=== PATIENT | female | born 1955 | race Caucasian/White ===

== ENCOUNTER → 2017-01-11 | Outpatient (CLI) | payer BC ==
[~2017-01-11] MED LIST: ASPEC81 PO; ATEN-173 PO; ATOR-26 PO; CLOP1TAB15 PO; LSN25 PO
--- NOTE | 2017-01-11 13:47 | MAMMOGRAPHY REPORT ---
BILATERAL DIGITAL SCREENING MAMMOGRAM TOMOSYNTHESIS WITH CAD: 01/11/2017 CLINICAL HISTORY: Routine screening. Patient has no complaints. TECHNIQUE: Breast tomosynthesis in addition to standard 2D mammography was performed. Current study was also evaluated with a Computer Aided Detection (CAD) system. COMPARISON: Comparison is made to exams dated: 09/16/2014 mammogram, 05/04/2013 mammogram, and 01/20/20 10 mammogram - [facility]. BREAST COMPOSITION: The tissue of both breasts is almost entirely fatty. FINDINGS: No suspicious masses, calcifications, or areas of architectural distortion are noted in ei ther breast. There has been no significant interval change compared to prior exams. IMPRESSION: ACR BI-RADS CATEGORY 1: NEGATIVE There is no mammographic evidence of malignancy. A 1 year screening mammogram is recommended. The pa tient will receive written notification of the results. Approximately 10% of breast cancers are not detected with mammography. A negative mammographic report should not delay biopsy if a clinically suggestive mass is present. Mi Brush M.D. ah/:01/11/2017 11:58:50 Seo Manager: Miladys Lara, [facility] letter sent: Normal 1/2 BI-RADS Code: ACR BI-RADS Category 1: Negative
== END | disposition home or self-care (01) ==
LOC: C.MAMM 11:12
PROVIDERS: ATTEND Family Medicine
DX: Z12.31 Encounter for screening mammogram for malignant neoplasm of breast (principal)

== ENCOUNTER 2020-11-01 04:57 | Observation (INO) ==
--- NOTE | 2020-11-01 05:25 | Emergency Department Note ---
Impression & Plan Acute cholecystitis ED Provider Note Name: ANGEL LUIS COOPER Age: 64 Sex: F Arrives Via: Walk-In Informant: Patient, ED Provider: Leandro Cortez MD Chief Complaint: RUQ pain Impression: Acute Cholecystitis Medical Decision Makin yr old female with HTN, DLP, and aortic valve repair arrives with acute RUQ pain gradually improving since getting here. Exam with mild TTP over RUQ. EKG OK. Labs with bumped LFTs and mild Bili elevation. US with concern for acute cholecystitis and given history and exam this seems likely. Discussed with Gen surg who will admit for further management and given IV mefoxin by me. She is stable, no septic and is comfortable with hospitalization. Prior Medical Record and Triage/Nursing Notes reviewed by Me Differentials:Acute Cholecystitis, Gall stones, liver failure, acs, dissection, pancreatitis, abscess, sepsis, amongst others Vital Signs: reviewed and remarkable for no significant abnormalities Interventions: saline lock, mefoxin 2gm IV Labs:Reviewed and remarkable for elevated LFTs Imaging: [facility] Radiologist interpretation reviewed by me: Gallbladder US: "IMPRESSION: 1. Cholelithiasis, gallbladder distention and minimal gallbladder wall thickening. No sonographic Vela sign. The findings are equivocal for acute cholecystitis. A hepatobiliary scan could be obtained as indicated. 2. 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 3. Mild biliary ductal dilatation which could be correlated with liver function tests. No common bile duct calculi identified by sonography." X ray results are stated below per my interpretation: Chest: 1 view: No infiltrate, no effusion, normal cardiac border. EKG:Per My Interpretation: Indication RUQ pain: Sinus Nirmal 59 bpm, qtc 421. No Ectopy. No Ischemia. Compared to EKG 05/13/08 there are ant/lat flattening of T waves Cardiac/Tele Monitoring: Cardiac Monitoring: An Order was placed for continuous cardiac monitoring. The monitor shows a rate of 60 with a normal sinus rhythm. Consults:Dr Sharma (thought Jd Verma PA-C) will admit for further management Plan: Disposition:Hospitalization. Condition: Good History of Present Illness:64 yr old female arrives for evaluation of RUQ pain. Patient notes she was awoken from sleep around 2am with acute RUQ pain radiating to lower central chest. Worse with movement. Better with rest. Tums at home did not help pain. Mild nausea nor vomiting. Did have chills at home which have resolved. States pain gradually improving since getting to ED. Denies trauma, injury falls. Admits chronic bruising issues on arms/legs and is on ASA 81mg daily. History of "gallbladder attack" a few years ago but no issues since and did not require surgery. No recent abx. Denies sob, syncope, fevers, headache, neck pain, back pain, urinary/bowel symptoms, leg swelling, nor other symptoms. ROS: See above HPI for pertinent positives & negatives. A total of 10 systems reviewed and were otherwise negative. Past Medical History:HTN, Dyslipidemia, Aortic valve stenosis Past Surgical History:Aortic valve repair Family History:Mother CAD Social History:Lives with , no etoh, no smoking Home Medications:lisinopril, rosuvastatin, metoprolol, asa 81mg Allergies:colestipol, clonidine Vitals:Blood Pressure: 108/49, Pulse 51, RR 20, T 37C, O2 100% on RA Physical Exam: GENERAL: Patient is anxious appearing and in mild distress. EYES: No scleral icterus, unremarkable pupils. ENT: Mucous membranes moist, no nasal congestion. NECK: No masses appreciated, nomeningismus, trachea is midline. RESPIRATORY: No dyspnea. Clear to auscultation and equal bilaterally. No wheeze, no rhonchi. CARDIOVASCULAR: Regular rate and rhythm.No murmurs, rubs, gallops appreciated. GASTROINTESTINAL: TTP over RUQ, otherwise abdomen soft, no peritonitis.Bowel sounds positive.No masses appreciated. BACK: No midline tenderness, no CVA tenderness EXTREMITIES: Normal motion all extremities, no cyanosis, no edema. NEUROLOGIC: Alert and oriented, no acute motor or sensory deficits, no focal weakness, cranial nerves grossly intact. SKIN: No rash, no jaundice, no diaphoresis. PSYCH: Appropriate GCS: 15 ED Course: Times/Reassessments: stable, declines pain medications, Gen Surg in to evaluate further Leandro Cortez MD Past Med/Surg History Social History Smoking Status: Former smoker Feels Safe at Home: Yes Allergies Allergies Allergy/AdvReac Type Severity Reaction Status Date / Time clonidine Allergy Mild Verified 08/26/09 03:12 colestipol Allergy Mild Verified 08/26/09 03:12 CLONIDINE-LEGS ACHED AFTER Allergy Unknown Uncoded 09/03/02 18:19 TAKING X 1 MONTH,COLESTIS,UPSET STOMACH [id number] Allergy Unknown Uncoded 09/03/02 18:19 N Allergy Unknown Uncoded 09/03/02 18:19 Home Meds Home Medications Medication Instructions Recorded Confirmed ATORVASTATIN (LIPITOR) 80 mg PO DAILY #0 05/13/08 Aspirin Enteric Coated (Ecotrin Or 81 mg PO DAILY #0 05/13/08 Generic *) Atenolol (Tenormin) 12.5 mg PO DAILY #0 05/13/08 Clopidogrel (Plavix) 75 mg PO DAILY #0 05/13/08 Lisinopril (Zestril *) 2.5 mg PO DAILY #0 05/13/08 Results & Data (ED) Vital Signs Vital Signs - 24 hr 11/01/20 05:04 11/01/20 06:07 11/01/20 06:30 Temperature 37 C Temperature Source Temporal Artery Scan Pulse Rate 51 L 51 L 53 L Pulse Rate from SpO2 Sensor 51 L 53 L Respiratory Rate 20 16 14 Blood Pressure 108/49 L 133/43 L 146/55 H Blood Pressure Mean 68 73 85 Pulse Oximetry 100 98 98 Oxygen Delivery Method Room Air Sepsis Recent Fever Within 48 Hours No Sepsis New/Unexplained Change in Mental Status N/A Sepsis Action Taken by Nursing No Action Required Laboratory Data Result diagrams: 11/01/20 05:20 11/01/20 05:20 Lab Results 11/01/20 11/01/20 Range/Units 05:20 05:20 WBC 7.71 (4.8-10.8) K/uL RBC 3.77 L (4.2-5.4) M/uL Hgb 12.0 (12.0-16.0) g/dL Hct 34.9 L (37-47) % MCV 92.6 (80-100) fL MCH 31.8 (25-34) pg MCHC 34.4 (32-36) g/dL RDW Std Deviation 46.5 H (36.4-46.3) fL RDW Coeff of Tanner 13.7 (11.5-14.5) % Plt Count 130 (130-400) K/uL MPV 10.9 H (7.4-10.4) fL Immature Gran % (Auto) 0.1 % Neut % (Auto) 78.6 % Lymph % (Auto) 14.9 % [place] % (Auto) 5.3 % Eos % (Auto) 1.0 % Baso % (Auto) 0.1 % Neut # (Auto) 6.05 (1.4-6.5) K/uL Lymph # (Auto) 1.15 L (1.2-3.4) K/uL [place] # (Auto) 0.41 (0.11-0.59) K/uL Eos # (Auto) 0.08 (0-0.5) K/uL Baso # (Auto) 0.01 (0-0.2) K/uL Immature Gran # (Auto) 0.01 (0.00-0.02) K/uL Sodium 143 (136-145) mmol/L Potassium 3.6 (3.5-5.1) mmol/L Chloride 112 H (98-107) mmol/L Carbon Dioxide 27 (21-32) mmol/L Anion Gap 4.0 (3-11) BUN 29 H (7-18) mg/dl Creatinine 1.11 (0.6-1.2) mg/dl Est Cr Clr Drug Dosing 47.2 ml/min Est GFR ( Amer) 60.4 Est GFR (Non-Af Amer) 52.1 BUN/Creatinine Ratio 26.4 H (10-20) Glucose 135 H (70-99) mg/dl Calcium 9.6 (8.5-10.1) mg/dl Total Bilirubin 1.4 H (0.2-1) mg/dl Direct Bilirubin 0.6 H (0-0.2) mg/dl AST 598 H (15-37) U/L ALT 335 H (12-78) U/L Alkaline Phosphatase 89 (45-117) U/L Troponin I 0.019 (0-0.045) ng/ml Total Protein 7.3 (6.4-8.2) gm/dl Albumin 3.7 (3.4-5.0) gm/dl Lipase 142 (73-393) U/L Administered Medications Discontinued Medications Cefoxitin Sodium (Mefoxin) 2,000 mg in 60 mls @ 100 mls/hr IV NOW STA Stop: 11/01/20 06:50 Last Admin: 11/01/20 06:45 Dose: 100 mls/hr Documented by: [id number] Imaging Data Radiologist's Impression: Gallbladder Ultrasound 11/01/20 05:21 US gallbladder CLINICAL HISTORY: Right upper quadrant abdominal pain. COMPARISON STUDY: No previous studies for comparison. FINDINGS: Mild intrahepatic biliary ductal dilatation. The common bile duct is slightly dilated, measuring 7 mm. No common bile duct calculi are identified by sonography. The pancreatic head and body are normal. Tail is slightly obscured. Note is made of gallstones, including a stone within the gallbladder neck which did not move there is examination. There was no sonographic Vela sign. Sludge within the gallbladder was noted. The gallbladder was mildly distended. There was mild gallbladder wall thickening, measuring 3 mm in thickness. Foci of increased echogenicity within the gallbladder wall represent calcifications. No right hydronephrosis is present. IMPRESSION: 1. Cholelithiasis, gallbladder distention and minimal gallbladder wall thickening. No sonographic Vela sign. The findings are equivocal for acute cholecystitis. A hepatobiliary scan could be obtained as indicated. 2. 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 3. Mild biliary ductal dilatation which could be correlated with liver function tests. No common bile duct calculi identified by sonography. ACT 112: Negative or not required by law. Electronically signed by: Gordon Monae M.D. 11/01/2020 6:48 AM Chest X-Ray 11/01/20 06:31 XR chest 1V portable HISTORY: 64 years-old Female pre-op preoperative exam. No acute chest complaints COMPARISON: CTA chest 10/22/2014 TECHNIQUE: Portable AP view of the chest FINDINGS: Prior median sternotomy and CABG with prosthetic aortic valve. Calcified plaque of the thoracic aortic arch. No pneumothorax, pleural effusion, airspace consolidation or overt pulmonary edema. There is mild linear scarring/atelectasis of the lateral left midlung. Bones of the chest appear grossly intact. IMPRESSION: No acute process. ACT 112: Negative or not required by law. The above report was generated using voice recognition software. It may contain grammatical, syntax or spelling errors. Electronically signed by: Talon Adrian M.D. 11/01/2020 6:48 AM Discharge Plan Visit Data Chief Complaint: Abdominal Pain Stated Complaint: abdominal pain ED Provider: Leandro Cortez Discharge Problem: Acute cholecystitis Forms Stand Alone Forms: [facility] Prescriptions Prescriptions: No Action ATORVASTATIN (LIPITOR) 80 MG tablet 80 mg PO DAILY Qty: 0 RF: 0 Aspirin Enteric Coated (Ecotrin Or Generic *) 81 MG ENTERIC COATED TAB 81 mg PO DAILY Qty: 0 RF: 0 Atenolol (Tenormin) 25 MG tablet 12.5 mg PO DAILY Qty: 0 RF: 0 Clopidogrel (Plavix) 75 MG tablet 75 mg PO DAILY Qty: 0 RF: 0 Lisinopril (Zestril *) 2.5 MG tablet 2.5 mg PO DAILY Qty: 0 RF: 0
[2020-11-01 05:34] LABS: Basophils # (auto) 0.01 K/uL (0-0.2); Basophils % (auto) 0.1 %; Eosinophils # (auto) 0.08 K/uL (0-0.5); Hematocrit (blood only) 34.9 % (37-47); Immature Granulocytes # (auto) 0.01 K/uL (0.00-0.02); Immature Granulocytes % (auto) 0.1 %; Lymphocytes # (auto) 1.15 K/uL (1.2-3.4); Lymphocytes % (auto) 14.9 %; Mean Corpuscular Hemoglobin 31.8 pg (25-34); Mean Corpuscular Hgb Conc 34.4 g/dL (32-36); Mean Corpuscular Volume 92.6 fL (80-100); Mean Platelet Volume 10.9 fL (7.4-10.4); Monocytes # (auto) 0.41 K/uL (0.11-0.59); Monocytes % (auto) 5.3 %; Neutrophils # (auto) 6.05 K/uL (1.4-6.5); Neutrophils % (auto) 78.6 %; Platelet Count 130 K/uL (130-400); RDW Coefficient of Variation 13.7 % (11.5-14.5); RDW Standard Deviation 46.5 fL (36.4-46.3); Red Blood Count 3.77 M/uL (4.2-5.4); White Blood Count 7.71 K/uL (4.8-10.8)
[2020-11-01 05:51] LABS: Albumin Level 3.7 gm/dl (3.4-5.0); BUN Creatinine Ratio 26.4 (10-20); Bilirubin Direct 0.6 mg/dl (0-0.2); Calcium 9.6 mg/dl (8.5-10.1); Creatinine Clr Calc Pharmacy 47.2 ml/min; Est GFR (African American) 60.4; Est GFR (Non-African American) 52.1; Potassium 3.6 mmol/L (3.5-5.1)
[2020-11-01 05:56] LABS: Bilirubin,Total 1.4 mg/dl (0.2-1); Total Protein 7.3 gm/dl (6.4-8.2); Troponin I 0.019 ng/ml (0-0.045)
[2020-11-01] MEDS ORDERED: cefOXitin 2,000 MG/60 ML BAG IV STA (06:15)
--- NOTE | 2020-11-01 06:27 | History & Physical Report ---
Date of Service November 01, 2020 Assessment & Plan (1) Acute cholecystitis: We will admit the patient to the hospital proceed as follows: We will keep her n.p.o. in anticipation of cholecystectomy. Provide analgesics Provide antiemetics We will administer antibiotics in the form of cefoxitin We will gently hydrate her with IV fluids CDs will be used for DVT prevention We will follow up on Covid test that has been ordered We will get a chest x-ray for preoperative measures Additional recommendations were made based on operative findings and her clinical course as it unfolds as above. pt seen. pt painfree now. suspect she may have passed a stone. discussed options/risks ( bleeding/infection/bile duct injury or leaks, injury to other organs, dvt/pe/mi/cva etc... questions answered. will plan /poss open cholecystectomy today. will admit and recheck LFT's tomorrow. History of Present Illness Chief Complaint: Cholecystitis Primary Care Provider: SILKE Martínez This is a 64-year-old female who presented to the [facility] emergency department secondary to right upper quadrant abdominal pain. She said the pain began approximately 2:30 AM this morning. She said the pain was unrelated to any meals that she ate. She did not have any nausea, vomiting, fevers, shakes, or chills. She says she has never had this problem before. He said the pain did not radiate anywhere and did not identify any palliative or provocative factors. In the emergency department the patient did have labs and imaging which I independently reviewed. She did have a gallbladder ultrasound that showed she had gallstones along with an edematous thickened gallbladder wall with some gallbladder wall calcifications. There are this raise a concern for cholecystitis. A CBC revealed her white blood cell count, hemoglobin, and platelet count are all within normal range. Chemistry profile revealed her sodium, potassium, and creatinine were all within normal range. LFT were elevated with an AST and ALT of 598 and 335 respectively. Alkaline phosphatase was noted to be normal total bilirubin was 1.4 and direct bilirubin of 0.6. Her lipase was normal. A Covid test has been performed and is pending. Patient did have an EKG that showed sinus bradycardia without any changes indicative of acute ischemia I questioned patient about her functional status as she has had an aortic valve replaced in 2011. She says that she is very active when she is feeling well and can negotiate steps and inclines without chest pain or shortness of breath. At the time of my interview she is resting comfortably in bed without any discomfort or distress. Allergies Allergy/AdvReac Type Severity Reaction Status Date / Time clonidine Allergy Mild Verified 08/26/09 03:12 colestipol Allergy Mild Verified 08/26/09 03:12 CLONIDINE-LEGS ACHED AFTER Allergy Unknown Uncoded 09/03/02 18:19 TAKING X 1 MONTH,COLESTIS,UPSET STOMACH [id number] Allergy Unknown Uncoded 09/03/02 18:19 N Allergy Unknown Uncoded 09/03/02 18:19 Home Medications Medication Instructions Recorded Confirmed Type ATORVASTATIN (LIPITOR) 80 mg PO DAILY #0 05/13/08 History Aspirin Enteric Coated (Ecotrin Or 81 mg PO DAILY #0 05/13/08 History Generic *) Atenolol (Tenormin) 12.5 mg PO DAILY #0 05/13/08 History Clopidogrel (Plavix) 75 mg PO DAILY #0 05/13/08 History Lisinopril (Zestril *) 2.5 mg PO DAILY #0 05/13/08 History Past Med/Surg History Social History Smoking Status: Former smoker Feels Safe at Home: Yes Review of Systems Constitutional: no fever and no chills Eyes: no diplopia Ear, Nose, Mouth, Throat: no ear pain Respiratory: no cough and no dyspnea Cardiovascular: no chest pain Gastrointestinal: + abdominal pain; no nausea and no vomiting Genitourinary: no dysuria Musculoskeletal: no back pain Integumentary: no rash Neurologic: no localized weakness Physical Exam Constitutional: well developed and well nourished; no acute distress Eyes: no conjunctival abnormality ENMT: Ears: no hearing impairment Neck: trachea midline Respiratory: normal respiratory effort, lungs clear to auscultation Cardiovascular: Rate/Rhythm: regular rate and regular rhythm Gastrointestinal (Abdomen): Abdomen is soft and nondistended with positive bowel sounds. There is no rebound tenderness or guarding. Patient did have pain with palpation of the right upper quadrant with a positive Vela sign Musculoskeletal: No calf tenderness Skin: no rashes, warm and dry Neurologic: moves all extremities Psychiatric: A+Ox3, euthymic affect Results & Data Results & Data ([facility]) Vital Signs (Past 12 Hours) Vital Signs Temp Pulse Resp BP Pulse Ox 11/01/20 05:04 37 C 51 L 20 108/49 L 100 PG Care Time/CCT Total # of Minutes Spent Total Time Spent with Patient: Total time spent is greater than 50% in coord ination of care (as documented) at patient's floor/unit and/or counseling patient: Coding Level of Care Code 82728 OBS Care - Level 3 Diagnoses Acute cholecystitis K81.0
--- NOTE | 2020-11-01 06:49 | Ultrasound Report ---
US gallbladder CLINICAL HISTORY: Right upper quadrant abdominal pain. COMPARISON STUDY: No previous studies for comparison. FINDINGS: Mild intrahepatic biliary ductal dilatation. The common bile duct is slightly dilated, juan uring 7 mm. No common bile duct calculi are identified by sonography. The pancreatic head and body ar e normal. Tail is slightly obscured. Note is made of gallstones, including a stone within the gallbla dder neck which did not move there is examination. There was no sonographic Vela sign. Sludge withi n the gallbladder was noted. The gallbladder was mildly distended. There was mild gallbladder wall th ickening, measuring 3 mm in thickness. Foci of increased echogenicity within the gallbladder wall rep resent calcifications. No right hydronephrosis is present. IMPRESSION: 1. Cholelithiasis, gallbladder distention and minimal gallbladder wall thickening. No sonographic Mur phy sign. The findings are equivocal for acute cholecystitis. A hepatobiliary scan could be obtained as indicated. 2. 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 3. Mild biliary ductal dilatation which could be correlated with liver function tests. No common bile duct calculi identified by sonography. ACT 112: Negative or not required by law. Electronically signed by: Gordon Monae M.D. 11/01/2020 6:48 AM
--- NOTE | 2020-11-01 06:49 | XRay Report ---
XR chest 1V portable HISTORY: 64 years-old Female pre-op preoperative exam. No acute chest complaints COMPARISON: CTA chest 10/22/2014 TECHNIQUE: Portable AP view of the chest FINDINGS: Prior median sternotomy and CABG with prosthetic aortic valve. Calcified plaque of the thoracic aorti c arch. No pneumothorax, pleural effusion, airspace consolidation or overt pulmonary edema. There is mild linear scarring/atelectasis of the lateral left midlung. Bones of the chest appear grossly intac t. IMPRESSION: No acute process. ACT 112: Negative or not required by law. The above report was generated using voice recognition software. It may contain grammatical, syntax o r spelling errors. Electronically signed by: Talon Adrian M.D. 11/01/2020 6:48 AM
[2020-11-01 08:19] LABS: Influenza A virus by PCR Negative (Neg); Influenza B virus by PCR Negative (Neg); RSV by PCR Negative (Neg); SARS CoV2 RNA(COVID-19) InHosp NEGATIVE (Negative)
[2020-11-01 09:24] LABS: Appearance Urine Clear (Clear); Bacteria Urine Automated Negative (Negative); Bilirubin Urine Negative (Negative); Blood Urine Negative (Negative); Color Urine Dark Yellow; Glucose Urine UA Negative (Negative); Ketones Urine Trace (Negative); Leukocyte Esterase Urine Trace (Negative); Nitrite Urine Negative (Negative); Protein Urine Trace (Negative); RBC Urine Automated 0-4 /hpf (0-4); Specific Gravity Urine 1.027 (1.000-1.030); Urobilinogen Urine Negative (Negative)
[2020-11-01] MEDS ORDERED: ACETAMINOPHEN 1000 MG/100 ML IV IV ONE (10:42)
[2020-11-01] MEDS ORDERED: FAMOTIDINE/PF 20 MG/2 ML VIAL IV ONE (10:42)
[2020-11-01] MEDS ORDERED: ONDANSETRON INJ 2 MG/ML 2 ML VIAL IV PRN ×2 (11:05→11:40)
[2020-11-01] MEDS ORDERED: MoRPHine SULFATE 2 MG/ML CARP IV PRN (11:05)
[2020-11-01] MEDS ORDERED: fentaNYL citrate 100 MCG/2 ML VIAL IV PRN (11:40)
[2020-11-01] MEDS ORDERED: ATROPINE SULFATE 0.1 MG/ML 10ML SYR IV PRN (11:40)
[2020-11-01] MEDS ORDERED: ePHEDrine sulfate 50 MG/ML AMP IV PRN (11:40)
[2020-11-01] MEDS ORDERED: HYDROmorphone INJ 1 MG/ML SYRINGE IV PRN (11:40)
--- NOTE | 2020-11-01 11:41 | Anesthesiology Consultation ---
Date of Service November 01, 2020 Assessment & Plan (1) Encounter for pre-operative examination: Chart Review Chart Review: Acceptable Risk for Surgery and Patient NOT seen in Pre Admission Testing Consults Requested none History Surgery Operation Date: 11/01/20 08:20 Proposed Procedures p Laparoscopic Cholecystectomy Versus Open Cholecystectomy - Jeff Sharma, Height/Weight Height: 5 ft 2 in Weight: 71.9 kg Allergies Allergy/AdvReac Type Severity Reaction Status Date / Time clonidine Allergy Mild Verified 08/26/09 03:12 colestipol Allergy Mild Verified 08/26/09 03:12 CLONIDINE-LEGS ACHED AFTER Allergy Unknown Uncoded 09/03/02 18:19 TAKING X 1 MONTH,COLESTIS,UPSET STOMACH [id number] Allergy Unknown Uncoded 09/03/02 18:19 N Allergy Unknown Uncoded 09/03/02 18:19 Medications Home Medications Medication Instructions Recorded Confirmed Last Taken ATORVASTATIN (LIPITOR) 80 mg PO DAILY #0 05/13/08 Unknown Aspirin Enteric Coated (Ecotrin Or 81 mg PO DAILY #0 05/13/08 Unknown Generic *) Atenolol (Tenormin) 12.5 mg PO DAILY #0 05/13/08 Unknown Clopidogrel (Plavix) 75 mg PO DAILY #0 05/13/08 Unknown Lisinopril (Zestril *) 2.5 mg PO DAILY #0 05/13/08 Unknown Past Medical History Medical History (Updated 11/01/20 @ 12:11 by Rahul Edge MD) Hypertension Exercise / Class Metabolic Activity II 4-5 Yardwork/Stairs/Walk up hill Past Surgical History Surgical History (Updated 11/01/20 @ 12:05 by Rahul Edge MD) Aortic valve replaced S/P appendectomy Past Anesthesia History No Hx of Anesthesia Complications and No Family Hx of Anesthesia Complications History of PONV No Hx of PONV and No Hx of Motion Sickness Social History Smoking Status: Never smoker Do You Dip or Chew Tobacco: No Hx Alcohol Use: No Hx Substance Use: No Physical Exam Vital Signs Last Vital Signs Temp 36.9 C 11/01/20 11:22 Pulse 51 L 11/01/20 11:22 Resp 18 11/01/20 11:22 BP 131/74 11/01/20 11:22 Pulse Ox 96 11/01/20 11:22 Testing Laboratory Results 11/01/20 05:20 11/01/20 05:20 Urine Color Dark Yellow 11/01/20 09:07 Urine Appearance Clear (Clear) 11/01/20 09:07 Urine pH 5.0 (4.5-7.5) 11/01/20 09:07 Ur Specific [place] 1.027 (1.000-1.030) 11/01/20 09:07 Urine Protein Trace (Negative) H 11/01/20 09:07 Urine Glucose (UA) Negative (Negative) 11/01/20 09:07 Urine Ketones Trace (Negative) H 11/01/20 09:07 Urine Nitrite Negative (Negative) 11/01/20 09:07 Ur Leukocyte Esterase Trace (Negative) H 11/01/20 09:07 Urine WBC (Auto) 1-5 /hpf (0-5) 11/01/20 09:07 Urine RBC (Auto) 0-4 /hpf (0-4) 11/01/20 09:07 U Hyaline Cast (Auto) 1-5 /lpf (0-5) 11/01/20 09:07 U Epithel Cells (Auto) 10-20 /lpf (0-5) H 11/01/20 09:07 Urine Bacteria (Auto) Negative (Negative) 11/01/20 09:07 Electrocardiogram Date: 11/01/20 Findings: + SB @ (59) Sinus bradycardia Otherwise normal ECG When compared with ECG of 13-MAY-2008 07:08, Nonspecific T wave abnormality now evident in Anterior leads
[2020-11-01] MEDS ORDERED: SCOPOLAMINE 1 MG TDSY TD STA (12:02)
[2020-11-01] MEDS ORDERED: PROPOFOL IV EMULSION 10 MG/ML 20 ML VIAL IV ONE (12:19)
[2020-11-01] MEDS ORDERED: DEXAMETHASONE SOD INJ 4 MG/ML VIAL ONE (12:19)
[2020-11-01] MEDS ORDERED: ONDANSETRON INJ 2 MG/ML 2 ML VIAL ONE (12:19)
[2020-11-01] MEDS ORDERED: GLYCOPYRROLATE 0.2 MG/ML VIAL ONE (12:19)
[2020-11-01] MEDS ORDERED: LIDOCAINE HCL 2% 2 ML VIAL/AMP(20MG/ML) INFIL ONE (12:19)
[2020-11-01] MEDS ORDERED: fentaNYL citrate 100 MCG/2 ML VIAL ONE (12:20)
[2020-11-01] MEDS ORDERED: MIDAZOLAM HCL 1 MG/ML 2ML VIAL ONE (12:20)
[2020-11-01] MEDS ORDERED: BUPIVACAINE/EPINEPHRINE 0.5% MPF 1:200,000 30 ML VIAL ONE (12:35)
[2020-11-01 12:36] LABS: Albumin Level 3.5 gm/dl (3.4-5.0); Bilirubin Direct 0.9 mg/dl (0-0.2); Bilirubin,Total 1.8 mg/dl (0.2-1); Total Protein 6.5 gm/dl (6.4-8.2)
[2020-11-01] MEDS: cefOXitin 2,000 MG in DEXTROSE 5% 50 ML IV SCH ×2 (12:40→17:56)
[2020-11-01] MEDS ORDERED: ROCURONIUM BROMIDE 10 MG/ML 5 ML VIAL IV ONE (13:32)
--- NOTE | 2020-11-01 13:35 | Operative Report ---
PG Post Operative Report Pre & Post Diagnosis Operation Date: 11/01/20 08:20 Pre-Op Diagnosis: acute cholecystitis Post-Op Diagnosis: acute cholecystitis I identified the patient and participated in the time-out.: Yes Procedure Operation Date: 11/01/20 08:20 Actual Procedures p Laparoscopic Cholecystectomy(Not Applicable) - Jeff Sharma DO Surgeon Jeff Sharma DO Tube Knitter ashley Dorado Estimated Blood Loss 5 Findings Consistent with Post-Op Diagnosis Specimens gallbladder Description of Procedure After informed consent was obtained the patient was taken to the operating room and placed in the supine position. After successful intubation the abdomen was sterilely prepped and draped in usual fashion. A periumbilical incision was made with an 11 blade scalpel and carried down through the soft tissue using electrocautery. The anterior rectus fascia was opened using electrocautery and 2 #0 Vicryl stay sutures were placed. The peritoneum was elevated with hemostats and incised under direct vision using Metzenbaum scissors. A finger sweep was performed and a 12 mm Mcgee trocar was placed. The abdomen was insufflated to 18 mmHg. The laparoscope was inserted and the abdomen was examined in 360. No gross abnormalities were identified. A subxiphoid 5 mm port and 2 right upper quadrant 5 mm ports were placed under direct vision. The patient was placed in a reverse Trendelenburg position and slightly airplaned to the left. The gallbladder was severely inflamed. I was able to pull the ome ntum off of it revealing a thickened gallbladder wall. It was too tense to grasp therefore used a gallbladder needle to decompress it. It was filled with white purulent fluid. A sample was sent for Gram stain culture and sensitivity. After decompressing it, the gallbladder was grasped and elevated superiorly and laterally. A [place] dissector was used to take down adhesions around the neck of the gallbladder. The cystic duct was identified and skeletonized. It was clipped twice proximally and once distally and transected using a laparoscopic scissor. In similar fashion the cystic artery was identified and skeletonized clipped and divided. The gallbladder was removed from the gallbladder fossa with electrocautery. It was placed into an Endo Catch bag. Thorough irrigation was performed. At the end of the procedure there was adequate hemostasis and no evidence of any bile leaks. A final look around the abdomen showed no other abnormalities. The gallbladder and trochars were all removed and the abdomen was desufflated. The fascia of the camera port was closed using 0 Vicryl in a [id number] fashion. All the wounds were irrigated and closed using 4-0 Monocryl. Marcaine was injected around them for postoperative analgesia and skin glue used as a dressing. The patient was awaken extubated and transferred to recovery in stable condition. My physician's res habilitation assistant was present throughout the entire case... helped with prepping the patient. With exposure for trocar placement, as well as retracted the gallbladder throughout the case and also assisted with wound closure and dressing placement. I attest to the content of the Intraoperative Record and any orders documented therein. Any exceptions are noted below.
--- NOTE | 2020-11-01 14:23 | Anesthesiology Progress Note ---
Date of Service November 01, 2020 Anesthesia Post Procedure Vital Signs Vital Signs: Temp Pulse Pulse Pulse Resp BP BP 11/01/20 14:15 36.7 C 55 L 17 150/81 H 11/01/20 14:05 63 17 154/59 H 11/01/20 13:55 69 16 153/64 H 11/01/20 13:48 36.3 C L 92 H 16 159/78 H 11/01/20 12:00 36.6 C 56 L 18 158/53 H 11/01/20 11:22 36.9 C 51 L 18 131/74 11/01/20 10:00 54 L 15 148/57 H 11/01/20 09:30 52 L 17 133/60 11/01/20 09:06 55 L 19 157/62 H 11/01/20 08:30 53 L 14 135/55 L 11/01/20 08:01 54 L 14 121/68 11/01/20 07:31 58 L 16 148/53 H 11/01/20 07:30 54 L 18 11/01/20 07:00 52 L 15 119/59 L 11/01/20 06:30 53 L 14 146/55 H 11/01/20 06:07 51 L 16 133/43 L 11/01/20 05:04 37 C 51 L 20 108/49 L Pulse Ox 11/01/20 14:15 93 11/01/20 14:05 98 11/01/20 13:55 96 11/01/20 13:48 95 11/01/20 12:00 97 11/01/20 11:22 96 11/01/20 10:00 98 11/01/20 09:30 99 11/01/20 09:06 100 11/01/20 08:30 99 11/01/20 08:01 99 11/01/20 07:31 99 11/01/20 07:30 96 11/01/20 07:00 99 11/01/20 06:30 98 11/01/20 06:07 98 11/01/20 05:04 100 Transfer of Care Handoff Completed per policy Notes Mental Status: alert / awake / arousable and participated in evaluation Patient Amnestic to Procedure: Yes Nausea / Vomiting: adequately controlled Pain: adequately controlled Airway Patency, RR, SpO2: stable & adequate BP & HR: stable & adequate Hydration State: stable & adequate Anesthetic Complications: no major complications apparent and Pt Satisfied with anesthetic care
[2020-11-01] MEDS ORDERED: HYDROCODONE/ACETAMOPHEN 5/325MG TAB PO PRN ×2 (14:52)
[2020-11-01] MEDS ORDERED: MoRPHine SULFATE 4 MG/ML 1 ML CARP\\VIAL IV PRN (14:52)
[2020-11-01] MEDS: ATENOLOL 25 MG TABLET PO SCH (14:53)
[2020-11-01] MEDS: LACTATED RINGER'S 1,000 ML IV SCH (14:53)
[2020-11-01] MEDS: CHECK SCOPOLAMINE PATCH PLACEMENT SCH (17:56)
[2020-11-02] MEDS: cefOXitin 2,000 MG in DEXTROSE 5% 50 ML IV SCH ×3 (00:45→11:45)
[2020-11-02] MEDS: CHECK SCOPOLAMINE PATCH PLACEMENT SCH ×2 (00:45→07:47)
--- NOTE | 2020-11-02 06:24 | Electrocardiogram Report ---
Test Reason : Blood Pressure : / mmHG Vent. Rate : 059 BPM Atrial Rate : 059 BPM P-R Int : 166 ms QRS Dur : 088 ms QT Int : 426 ms P-R-T Axes : 077 029 059 degrees QTc Int : 421 ms Sinus bradycardia Otherwise normal ECG When compared with ECG of 13-MAY-2008 07:08, No significant change Confirmed by Dov Weinberg ([id number]) on 11/02/2020 6:23:43 AM Referred By: REFERRED SELF Confirmed By:Dov Weinberg
[2020-11-02] MEDS: LACTATED RINGER'S 1,000 ML IV SCH (06:29)
[2020-11-02 07:29] LABS: Hematocrit (blood only) 24.9 % (37-47); Hemoglobin 8.5 g/dL (12.0-16.0); Mean Corpuscular Hemoglobin 31.4 pg (25-34); Mean Corpuscular Hgb Conc 34.1 g/dL (32-36); Mean Corpuscular Volume 91.9 fL (80-100); Mean Platelet Volume 11.2 fL (7.4-10.4); Platelet Count 121 K/uL (130-400); RDW Standard Deviation 46.4 fL (36.4-46.3); Red Blood Count 2.71 M/uL (4.2-5.4); White Blood Count 6.78 K/uL (4.8-10.8)
[2020-11-02] MEDS: ATENOLOL 25 MG TABLET PO SCH (07:46)
[2020-11-02 07:50] LABS: BUN Creatinine Ratio 10.2 (10-20); Calcium 8.6 mg/dl (8.5-10.1); Creatinine Clr Calc Pharmacy 28.8 ml/min; Est GFR (African American) 33.6; Potassium 3.9 mmol/L (3.5-5.1)
[2020-11-02 07:52] LABS: Bilirubin,Total 0.8 mg/dl (0.2-1); Total Protein 5.6 gm/dl (6.4-8.2)
[2020-11-02 08:19] LABS: Bilirubin Direct 0.2 mg/dl (0-0.2)
--- NOTE | 2020-11-02 09:04 | Surgery Progress Note ---
Date of Service November 02, 2020 Assessment & Plan (1) Acute cholecystitis: POD#1 laparoscopic cholecystectomy WBC 6.7. LFT's downtrending- Tb 0.8 (1.8), AST: 373 (1253), ALT: 549 (883). Does have a postop drop in Hbg 8.5 (12) and slight bump in Cr: 1.8 (1.1) Patient with some lower abdominal discomfort she relates to gas pains. Overall her pain has been tolerable and she hasn't been taking narcotics Abdomen soft, cisco-incisional ecchymosis noted Okay to advance diet as tolerates this AM Will re-evaluate later today for possible dispo planning pt seen. feeling well. herberth diet. no further dizziness. ok for d/c. instructions given. Admission and Anticipated Discharge Date Admission Date: November 01, 2020 Subjective Patient seen this AM. Has some lower abdominal pressure she thinks is related to gas. Had some lightheadedness overnight that has resolved. She has been ambulating in her room without issues. Physical Exam Physical Exam: awake/alert Constitutional: no acute distress Respiratory: normal respiratory effort Gastrointestinal (Abdomen): Inspection/Auscultation: + abdominal surgical incision (c/d/i with some ecchymosis noted cisco-incisionally ) Percussion/Palpation: + abdomen tender (some expected cisco-incisional ttp) and abdomen soft Results & Data ([facility]) Vital Signs (Past 12 Hours) Vital Signs Temp Pulse Pulse Resp BP Pulse Ox 11/02/20 08:25 36.5 C 84 16 107/72 98 11/02/20 04:00 36.6 C 66 18 115/72 94 11/01/20 23:05 36.7 C 65 18 108/68 93 PG Care Time/CCT Total # of Minutes Spent Total Time Spent with Patient: Total time spent is greater than 50% in coordination of care (as documented) at patient's floor/unit and/or counseling patient: Coding Level of Care Code None Diagnoses Acute cholecystitis K81.0
[2020-11-02] MEDS ORDERED: ACETAMINOPHEN 325 MG TAB PO PRN (09:23)
--- NOTE | 2020-11-03 13:43 | Discharge Summary ---
Date of Service November 03, 2020 Admission HPI Per Admitting Provider This is a 64-year-old female who presented to the [facility] emergency department secondary to right upper quadrant abdominal pain. She said the pain began approximately 2:30 AM this morning. She said the pain was unrelated to any meals that she ate. She did not have any nausea, vomiting, fevers, shakes, or chills. She says she has never had this problem before. He said the pain did not radiate anywhere and did not identify any palliative or provocative factors. In the emergency department the patient did have labs and imaging which I independently reviewed. She did have a gallbladder ultrasound that showed she had gallstones along with an edematous thickened gallbladder wall with some gallbladder wall calcifications. There are this raise a concern for cholecystitis. A CBC revealed her white blood cell count, hemoglobin, and platelet count are all within normal range. Chemistry profile revealed her sodium, potassium, and creatinine were all within normal range. LFT were eleva gerson with an AST and ALT of 598 and 335 respectively. Alkaline phosphatase was noted to be normal total bilirubin was 1.4 and direct bilirubin of 0.6. Her lipase was normal. A Covid test has been performed and is pending. Patient did have an EKG that showed sinus bradycardia without any changes indicative of acute ischemia I questioned patient about her functional status as she has had an aortic valve replaced in 2011. She says that she is very active when she is feeling well and can negotiate steps and inclines without chest pain or shortness of breath. At the time of my interview she is resting comfortably in bed without any discomfort or distress. Principal Diagnosis acute cholecystitis Discharge Exam Constitutional no acute distress Respiratory normal respiratory effort Gastrointestinal (Abdomen) Inspection/Auscultation: + abdominal surgical incision (c/d/i with some ecchymosis noted cisco-incisionally ) Percussion/Palpation: + abdomen tender (some expected cisco-incisional ttp) and abdomen soft Discharge Data Allergies Allergy/AdvReac Type Severity Reaction Status Date / Time clonidine Allergy Mild Verified 08/26/09 03:12 colestipol Allergy Mild Verified 08/26/09 03:12 CLONIDINE-LEGS ACHED AFTER Allergy Unknown Uncoded 09/03/02 18:19 TAKING X 1 MONTH,COLESTIS,UPSET STOMACH [id number] Allergy Unknown Uncoded 09/03/02 18:19 N Allergy Unknown Uncoded 09/03/02 18:19 Consultations 11/01/20 06:16 ED Decision to Admit Stat Procedures Performed Operation Date: 11/01/20 08:20 Actual Procedures p Laparoscopic Cholecystectomy(Not Applicable) - Jeff Sharma DO Ordered Studies 11/01/20 05:21 US gallbladder Urgent Hospital Course (1) Acute cholecystitis: This is a 64-year-old female who presented to the [facility] emergency department secondary to right upper quadrant abdominal pain. Workup with a RUQ US revealed findings concerning for cholecystitis. LFTs showed tb: 1.8, AST:1253 ALT: 883. Patient was admitted, kept NPO with IVF and started on IV abx. Decision was made to take patient to the OR for surgical intervention. On 11/01/20 the patient went to the OR for a laparoscopic cholecystectomy with Dr. Sharma. The patient tolerated the procedure well, please see op note for full details. Post operatively the patient's diet was advanced, post op abx continued, and pain remained controlled with prn medica tion. POD#1 patient's LFTs were downtrending. She had an episode of lightheadedness overnight that self-resolved and vital signs remained stable. She was tolerating a regular diet and her pain remained well controlled. She was deemed stable for discharge to home in the afternoon. She was instructed to follow up in clinic within 1-2 weeks for post op follow up. Total Time Total Time Spent Total Time Spent (In Minutes): 15 Discharge Plan Discharge Items Patient Disposition: Home - Self-Care Reason For Visit: RAFI Discharge Diagnosis: laparoscopic cholecystectomy Activity: Per Instructions section Lifting: No more than 10 pounds Bathing Comment: may shower; no soaking in tubs/pools Exercise/Sports: Wait until after follow-up appointment Driving/Machine Use: do not resume driving while taking narcotics for pain Non-emergency contact: Surgeon Call non-emergency contact if: you have any medication questions, your symptoms worsen, your pain is not controlled, your pain is worsening, you have a fever, your temperature is above 101.5, your wound has increased redness, your wound has increased drainage and your wound pain has increased Follow-up/Referrals: Jeff Sharma, [Surgeon] - (Please call to schedule follow up in clinic within 1-2 weeks) Destinee Núñez CRNP [Primary Care Provider] - Diet: Regular Addtl Attending Provider Instructions: Pending Studies at Discharge: Yes Studies:: surgical pathology Stand-Alone Forms: My [facility] [employer], Smoking Cessation Medications and DC Order Prescriptions: New hydrocodone-acetaminophen 5-325 mg tablet 1 - 2 tab PO .Q4-6h MDD 6 tabs PRN (Reason: pain, initial therapy) Qty: 15 RF: 0 Continued ATORVASTATIN (LIPITOR) 80 MG tablet 80 mg PO DAILY Qty: 0 RF: 0 Aspirin Enteric Coated (Ecotrin Or Generic *) 81 MG ENTERIC COATED TAB 81 mg PO DAILY Qty: 0 RF: 0 Atenolol (Tenormin) 25 MG tablet 12.5 mg PO DAILY Qty: 0 RF: 0 Clopidogrel (Plavix) 75 MG tablet 75 mg PO DAILY Qty: 0 RF: 0 Lisinopril (Zestril *) 2.5 MG tablet 2.5 mg PO DAILY Qty: 0 RF: 0 Discharge Orders: Discharge Order (Routine); Ordered 11/02/20 Ordered By: Jeff Sharma Admission Data Admit Date/Time: 11/01/20 06:30 Attending Provider: Jeff Sharma Admit Provider: Jeff Sharma Primary Care Provider: Destinee Núñez Other Providers: Jeff Sharma Other Interventions: Discharge Summary Assessment (RN) Last Done: 11/02/20 12:36 Coding Level of Care Code D/C Day Management <30 mins Diagnoses Acute cholecystitis K81.0
== END 2020-11-02 13:36 | disposition home or self-care (01) ==
LOC: 2W 04:57 → ED 04:57 → 2W 10:18

== ENCOUNTER 2020-11-05 19:59 | Observation (INO) ==
--- NOTE | 2020-11-05 20:47 | Emergency Department Note ---
Impression & Plan SOB (shortness of breath) ED Provider Note INFORMANT: Patient ED PROVIDER(S): Miah Talley MD CHIEF COMPLAINT: Shortness of breath PLAN: Disposition: Admitted Condition: Guarded Outpatient prescription management: none Referral: None MEDICAL DECISION MAKING: Patient presented to the emergency department because of shortness of breath. She was placed in isolation. Covid testing was performed and was negative. Patient's ECG did show anterior T wave inversions and inferior nonspecific changes. Patient's blood work revealed a significant anemia without leukocytosis. Her hemoglobin dropped from 12 preoperatively to 7.5. Her BNP is moderately elevated concerning for CHF. The patient also has elevated troponin of 1.5. She denied any chest pain. Concerned about endorgan ischemia given the significant anemia and her symptoms. The patient was consented for packed red blood cell transfusion and this was ordered. CT imaging of her chest does not reveal any evidence of PE. There is some mild fluid in the abdomen but not enough to explain the significant change in hemoglobin. The patient has not had any obvious bleeding issues. She denies being on any anticoagulation. She will need further management in the hospital. Consultation was made with Dr. Rip Barbour of the [facility] service. Patient was evaluated in the ER for further management. Triage Nursing notes reviewed and agree them. Prior medical records reviewed regarding her surgery. Minimal estimated blood loss. She was noted to have a hemoglobin drop from 12-8.5 on postop day 1. Vital Signs: reviewed and remarkable for no significant abnormalities Differential diagnosis: COVID-19, complication of recent surgery, reactive airway disease, pneumonia, pneumothorax, COPD, CHF, infections, cardiac ischemia, pulmonary embolism, musculoskeletal, gastrointestinal, as well as other pathologies. Diagnostics interpreted by me: ECG: Twelve-lead ECG reveals normal sinus rhythm at [address] inferiorly and anterior T wave inversions noted. Cardiac Monitoring: Cardiac monitoring ordered by me: The patient was placed on continuous cardiac monitoring and observed. It revealed a normal sinus rhythm at 60 beats per minute without ectopy or evidence of dysrhythmia. Imaging studies: CT scan of the chest abdomen and pelvis was negative for pulmonary embolus. There is a 7 x 7 cm fluid collection in the gallbladder fossa. No active extravasation. There is some trace fluid in the pelvis. I refer you to the EMR for further details. Consultation(s): Hospitalist service HPI: The patient is a 64 year old female who presents to the Emergency Room with complaints of shortness of breath. This started last few days and is worsening. The patient also notes the following associated symptoms, dry mouth, loss of taste, fatigue. The patient has found no relieving factors. Current pain is rated as 0/10. Patient had a cholecystectomy done [address] Sharma. No known Covid contacts. Pt denies LOC, headache, fevers, chills, diaphoresis, visual changes, neck pain, chest pain, nausea, vomiting, abdominal pain, back pain, melena, hematochezia, urinary symptoms, numbness, lymphadenopathy, rash, or other complaints. ROS: See above HPI for pertinent positives & negatives. A total of 10 systems r eviewed and were otherwise negative. PAST MEDICAL HISTORY:See Below , hypertension PAST SURGICAL HISTORY:See Below, cholecystectomy, appendectomy, AVR FAMILY HISTORY:See Below SOCIAL HISTORY:See Below, no tobacco HOME MEDICATIONS:See Below ALLERGIES:See Below VITALS:See Below PHYSICAL EXAMINATION: GENERAL: Awake, alert, anxious appearing, in no distress HENT: Normocephalic, atraumatic. Oropharynx unremarkable. EYES: Normal conjunctiva. Sclera non-icteric. NECK: Inspection normal. Non-tender. Supple. No nuchal rigidity. FROM. No masses. RESPIRATORY: Clear to auscultation. No wheezes. No rales. Normal respiratory effort. CARDIAC: Normal rate. Normal rhythm. No murmurs. No rubs. Extremities warm and well perfused. Pulses equal. No JVD. GI: Soft, non-distended. Minimal right upper quadrant tenderness to palpation. Surgical incisions are healing well. No sign of infection or dehiscence. Mild surrounding ecchymosis at each incision. No rebound or guarding. No masses. RECTAL: Deferred. MUSCULOSKELETAL: Atraumatic. Chest examination reveals no tenderness. The back is symmetrical on inspection without obvious abnormality. There is no CVA tenderness to palpation. No joint edema. LOWER EXTREMITIES: Calves are equal size bilaterally and non-tender. No edema. Occasional bruises but no other discoloration. NEURO: Normal sensorium. No sensory or motor deficits noted. SKIN: No rash or jaundice noted. ED COURSE: [Critical Care:] I have personally spent greater than 40 minutes of critical care time in the direct management of this patient. This includes bedside care, interpretation of diagnostic studies, and testing, discussion with consultants, patient, and other required patient management activities. These minutes are in excess of all separately billable procedures. Miah Talley MD Past Med/Surg History Medical History (Updated 11/05/20 @ 20:43 by Miah Talley MD) Hypertension Surgical History (Updated 11/01/20 @ 15:27 by Bridgette Camejo RN) Aortic valve replaced S/P appendectomy S/P laparoscopic cholecystectomy (11/01/20) Laparoscopic Cholecystectomy - Jeff Sharma, 11/01/20 Social History Smoking Status: Never smoker Hx Alcohol Use: No Hx Substance Use: No Communication Ability: Effective Analytical Data Scientist Required: No Beliefs That Will Affect Care: None Current Living Situation: Spouse Feels Safe at Home: Yes Assistive Devices: None Allergies Allergies Allergy/AdvReac Type Severity Reaction Status Date / Time clonidine AdvReac Mild Unknown Verified 11/05/20 20:27 colestipol AdvReac Mild Unknown Verified 11/05/20 20:27 Home Meds Home Medications Medication Instructions Recorded Confirmed lisinopril 30 mg PO DAILY 11/05/20 11/05/20 rosuvastatin 40 mg PO DAILY 11/05/20 11/05/20 Previous Rx's Medication Instructions Recorded hydrocodone-acetaminophen 1 - 2 tab PO .Q4-6h PRN #15 tab 11/02/20 MDD 6 tabs Results & Data (ED) Vital Signs Vital Signs - 24 hr 11/05/20 20:03 11/05/20 20:27 11/05/20 20:42 Temperature 36.3 C L Temperature Source Temporal Artery Scan Pulse Rate 75 75 Pulse Rate [Bilateral Radial] Pulse Rhythm Regular Pulse Rhythm [Bilateral Radial] Pulse Strength [Bilateral Radial] Respiratory Rate 20 20 Respiratory Effort / Characteristics Respiratory Depth Normal Respiratory Pattern Blood Pressure 123/53 L Blood Pressure [Right Arm] Blood Pressure Mean 76 Blood Pressure Mean [Right Arm] Blood Pressure Position Sitting Blood Pressure Position [Right Arm] Pulse Oximetry 99 99 99 Oxygen Delivery Method Room Air Room Air Room Air Sepsis Recent Fever Within 48 Hours No Sepsis New/Unexplained Change in Mental Status No Sepsis Action Taken by Nursing No Action Required 11/05/20 23:22 11/06/20 00:03 Temperature Temperature Source Pulse Rate Pulse Rate [Bilateral Radial] 60 60 Pulse Rhythm Pulse Rhythm [Bilateral Radial] Regular Pulse Strength [Bilateral Radial] Normal Respiratory Rate 16 18 Respiratory Effort / Characteristics Non-Labored Non-Labored Spontaneous Respiratory Depth Normal Normal Respiratory Pattern Regular Blood Pressure Blood Pressure [Right Arm] 115/72 118/61 Blood Pressure Mean Blood Pressure Mean [Right Arm] 86 80 Blood Pressure Position Blood Pressure Position [Right Arm] Sitting Sitting Pulse Oximetry 98 95 Oxygen Delivery Method Room Air Room Air Sepsis Recent Fever Within 48 Hours Sepsis New/Unexplained Change in Mental Status Sepsis Action Taken by Nursing Laboratory Data Result diagrams: 11/05/20 20:51 11/05/20 20:51 Lab Results 11/05/20 11/05/20 11/05/20 Range/Units 20:51 20:51 20:51 WBC 7.12 (4.8-10.8) K/uL RBC 2.36 L (4.2-5.4) M/uL Hgb 7.5 L (12.0-16.0) g/dL Hct 22.3 L (37-47) % MCV 94.5 (80-100) fL MCH 31.8 (25-34) pg MCHC 33.6 (32-36) g/dL RDW Std Deviation 49.2 H (36.4-46.3) fL RDW Coeff of Tanner 14.9 H (11.5-14.5) % Plt Count 131 (130-400) K/uL MPV 11.1 H (7.4-10.4) fL Immature Gran % (Auto) 0.4 % Neut % (Auto) 71.0 % Lymph % (Auto) 16.2 % [place] % (Auto) 9.8 % Eos % (Auto) 2.5 % Baso % (Auto) 0.1 % Neut # (Auto) 5.05 (1.4-6.5) K/uL Lymph # (Auto) 1.15 L (1.2-3.4) K/uL [place] # (Auto) 0.70 H (0.11-0.59) K/uL Eos # (Auto) 0.18 (0-0.5) K/uL Baso # (Auto) 0.01 (0-0.2) K/uL Immature Gran # (Auto) 0.03 H (0.00-0.02) K/uL Polychromasia 1+ PT 9.8 (9.0-12.0) Seconds INR 1.0 (0.9-1.1) APTT 21.0 (21.0-31.0) Seconds PTT Ratio 0.8 Sodium 133 L (136-145) mmol/L Potassium 3.9 (3.5-5.1) mmol/L Chloride 103 (98-107) mmol/L Carbon Dioxide 24 (21-32) mmol/L Anion Gap 7.0 (3-11) BUN 39 H (7-18) mg/dl Creatinine 1.22 H (0.6-1.2) mg/dl Est Cr Clr Drug Dosing 45.0 ml/min Est GFR ( Amer) 53.8 Est GFR (Non-Af Amer) 46.5 BUN/Creatinine Ratio 31.6 H (10-20) Glucose 114 H (70-99) mg/dl Calcium 9.4 (8.5-10.1) mg/dl Total Bilirubin 1.0 (0.2-1) mg/dl AST 46 H (15-37) U/L ALT 179 H (12-78) U/L Alkaline Phosphatase 73 (45-117) U/L Troponin I 1.580 H* (0-0.045) ng/ml NT-Pro-B Natriuret Pep 7449 H (0-900) pg/ml Total Protein 6.5 (6.4-8.2) gm/dl Albumin 3.2 L (3.4-5.0) gm/dl Globulin 3.3 (2.5-4.0) gm/dl Albumin/Globulin Ratio 1.0 (0.9-2) Urine Color Urine Appearance (Clear) Urine pH (4.5-7.5) Ur Specific [place] (1.000-1.030) Urine Protein (Negative) Urine Glucose (UA) (Negative) Urine Ketones (Negative) Urine Blood (Negative) Urine Nitrite (Negative) Urine Bilirubin (Negative) Urine Urobilinogen (Negative) Ur Leukocyte Esterase (Negative) COVID-19 Eval Order SARS-CoV-2 (PCR) (Negative) Influenza Type A (PCR) (Neg) Influenza Type B (PCR) (Neg) RSV (RT-PCR) (Neg) Crossmatch 11/05/20 11/05/20 11/05/20 Range/Units 20:51 20:51 22:42 WBC (4.8-10.8) K/uL RBC (4.2-5.4) M/uL Hgb (12.0-16.0) g/dL Hct (37-47) % MCV (80-100) fL MCH (25-34) pg MCHC (32-36) g/dL RDW Std Deviation (36.4-46.3) fL RDW Coeff of Tanner (11.5-14.5) % Plt Count (130-400) K/uL MPV (7.4-10.4) fL Immature Gran % (Auto) % Neut % (Auto) % Lymph % (Auto) % [place] % (Auto) % Eos % (Auto) % Baso % (Auto) % Neut # (Auto) (1.4-6.5) K/uL Lymph # (Auto) (1.2-3.4) K/uL [place] # (Auto) (0.11-0.59) K/uL Eos # (Auto) (0-0.5) K/uL Baso # (Auto) (0-0.2) K/uL Immature Gran # (Auto) (0.00-0.02) K/uL Polychromasia PT (9.0-12.0) Seconds INR (0.9-1.1) APTT (21.0-31.0) Seconds PTT Ratio Sodium (136-145) mmol/L Potassium (3.5-5.1) mmol/L Chloride (98-107) mmol/L Carbon Dioxide (21-32) mmol/L Anion Gap (3-11) BUN (7-18) mg/dl Creatinine (0.6-1.2) mg/dl Est Cr Clr Drug Dosing ml/min Est GFR ( Amer) Est GFR (Non-Af Amer) BUN/Creatinine Ratio (10-20) Glucose (70-99) mg/dl Calcium (8.5-10.1) mg/dl Total Bilirubin (0.2-1) mg/dl AST (15-37) U/L ALT (12-78) U/L Alkaline Phosphatase (45-117) U/L Troponin I (0-0.045) ng/ml NT-Pro-B Natriuret Pep (0-900) pg/ml Total Protein (6.4-8.2) gm/dl Albumin (3.4-5.0) gm/dl Globulin (2.5-4.0) gm/dl Albumin/Globulin Ratio (0.9-2) Urine Color Urine Appearance (Clear) Urine pH (4.5-7.5) Ur Specific [place] (1.000-1.030) Urine Protein (Negative) Urine Glucose (UA) (Negative) Urine Ketones (Negative) Urine Blood (Negative) Urine Nitrite (Negative) Urine Bilirubin (Negative) Urine Urobilinogen (Negative) Ur Leukocyte Esterase (Negative) COVID-[address] CovFluRsv at [facility] SARS-CoV-2 (PCR) NEGATIVE (Negative) Influenza Type A (PCR) Negative (Neg) Influenza Type B (PCR) Negative (Neg) RSV (RT-PCR) Negative (Neg) Crossmatch See Detail 11/05/20 Range/Units 23:53 WBC (4.8-10.8) K/uL RBC (4.2-5.4) M/uL Hgb (12.0-16.0) g/dL Hct (37-47) % MCV (80-100) fL MCH (25-34) pg MCHC (32-36) g/dL RDW Std Deviation (36.4-46.3) fL RDW Coeff of Tanner (11.5-14.5) % Plt Count (130-400) K/uL MPV (7.4-10.4) fL Immature Gran % (Auto) % Neut % (Auto) % Lymph % (Auto) % [place] % (Auto) % Eos % (Auto) % Baso % (Auto) % Neut # (Auto) (1.4-6.5) K/uL Lymph # (Auto) (1.2-3.4) K/uL [place] # (Auto) (0.11-0.59) K/uL Eos # (Auto) (0-0.5) K/uL Baso # (Auto) (0-0.2) K/uL Immature Gran # (Auto) (0.00-0.02) K/uL Polychromasia PT (9.0-12.0) Seconds INR (0.9-1.1) APTT (21.0-31.0) Seconds PTT Ratio Sodium (136-145) mmol/L Potassium (3.5-5.1) mmol/L Chloride (98-107) mmol/L Carbon Dioxide (21-32) mmol/L Anion Gap (3-11) BUN (7-18) mg/dl Creatinine (0.6-1.2) mg/dl Est Cr Clr Drug Dosing ml/min Est GFR ( Amer) Est GFR (Non-Af Amer) BUN/Creatinine Ratio (10-20) Glucose (70-99) mg/dl Calcium (8.5-10.1) mg/dl Total Bilirubin (0.2-1) mg/dl AST (15-37) U/L ALT (12-78) U/L Alkaline Phosphatase (45-117) U/L Troponin I (0-0.045) ng/ml NT-Pro-B Natriuret Pep (0-900) pg/ml Total Protein (6.4-8.2) gm/dl Albumin (3.4-5.0) gm/dl Globulin (2.5-4.0) gm/dl Albumin/Globulin Ratio (0.9-2) Urine Color Yellow Urine Appearance Clear (Clear) Urine pH 5.5 (4.5-7.5) Ur Specific [place] 1.023 (1.000-1.030) Urine Protein Negative (Negative) Urine Glucose (UA) Negative (Negative) Urine Ketones Negative (Negative) Urine Blood Negative (Negative) Urine Nitrite Negative (Negative) Urine Bilirubin Negative (Negative) Urine Urobilinogen Negative (Negative) Ur Leukocyte Esterase Negative (Negative) COVID-19 Eval Order SARS-CoV-2 (PCR) (Negative) Influenza Type A (PCR) (Neg) Influenza Type B (PCR) (Neg) RSV (RT-PCR) (Neg) Crossmatch Administered Medications Discontinued Medications Furosemide (Furosemide 40 Mg/4 Ml Vial) 20 mg IV NOW STA Stop: 11/05/20 22:32 Last Admin: 11/05/20 23:13 Dose: 20 mg Documented by: [id number] Ioversol (Optiray 350 500ml) 100 ml IV ONCE ONE Stop: 11/05/20 22:19 Last Admin: 11/05/20 22:18 Dose: 100 ml Documented by: [id number] Discharge Plan Visit Data Chief Complaint: Shortness of Breath/Dyspnea Stated Complaint: SOB ED Provider: Miah Talley Discharge Problem: SOB (shortness of breath) Forms Stand Alone Forms: My [facility] Prescriptions Prescriptions: No Action hydrocodone-acetaminophen 5-325 mg tablet 1 - 2 tab PO .Q4-6h MDD 6 tabs PRN (Reason: pain, initial therapy) Qty: 15 RF: 0 lisinopril 30 mg tablet 30 mg PO DAILY RF: 0 rosuvastatin 40 mg tablet 40 mg PO DAILY RF: 0
[2020-11-05 21:24] LABS: Basophils # (auto) 0.01 K/uL (0-0.2); Basophils % (auto) 0.1 %; Eosinophils # (auto) 0.18 K/uL (0-0.5); Eosinophils % (auto) 2.5 %; Hematocrit (blood only) 22.3 % (37-47); Hemoglobin 7.5 g/dL (12.0-16.0); Immature Granulocytes # (auto) 0.03 K/uL (0.00-0.02); Immature Granulocytes % (auto) 0.4 %; Lymphocytes # (auto) 1.15 K/uL (1.2-3.4); Lymphocytes % (auto) 16.2 %; Mean Corpuscular Hemoglobin 31.8 pg (25-34); Mean Corpuscular Hgb Conc 33.6 g/dL (32-36); Mean Corpuscular Volume 94.5 fL (80-100); Mean Platelet Volume 11.1 fL (7.4-10.4); Monocytes % (auto) 9.8 %; Neutrophils # (auto) 5.05 K/uL (1.4-6.5); Platelet Count 131 K/uL (130-400); RDW Coefficient of Variation 14.9 % (11.5-14.5); RDW Standard Deviation 49.2 fL (36.4-46.3); Red Blood Count 2.36 M/uL (4.2-5.4); White Blood Count 7.12 K/uL (4.8-10.8)
[2020-11-05 21:34] LABS: Partial Thromboplastin Ratio 0.8; Prothrombin Time 9.8 Seconds (9.0-12.0)
[2020-11-05 21:41] LABS: Albumin Level 3.2 gm/dl (3.4-5.0); BUN Creatinine Ratio 31.6 (10-20); Calcium 9.4 mg/dl (8.5-10.1); Est GFR (African American) 53.8; Est GFR (Non-African American) 46.5; Potassium 3.9 mmol/L (3.5-5.1)
[2020-11-05 21:46] LABS: Polychromasia 1+
[2020-11-05 21:52] LABS: Globulin 3.3 gm/dl (2.5-4.0); Total Protein 6.5 gm/dl (6.4-8.2); Troponin I 1.58 ng/ml (0-0.045)
[2020-11-05 22:00] LABS: Influenza A virus by PCR Negative (Neg); Influenza B virus by PCR Negative (Neg); RSV by PCR Negative (Neg); SARS CoV2 RNA(COVID-19) InHosp NEGATIVE (Negative)
[2020-11-05] MEDS ORDERED: OPTIRAY 350 500ml IV ONE (22:18)
[2020-11-05] MEDS ORDERED: SODIUM CHLORIDE 0.9% 250 ML IV PRN (22:31)
[2020-11-05] MEDS ORDERED: FUROSEMIDE 40 MG/4 ML VIAL IV STA (22:31)
--- NOTE | 2020-11-05 23:55 | History & Physical Report ---
Date of Service November 05, 2020 Assessment & Plan (1) Elevated troponin I level: The patient will be admitted to telemetry for serial cardiac enzymes, serial EKG's, cardiac rhythm monitoring and a 2-D echocardiogram with Dopplers. Troponin 1.580 upon admission. No acute ST-T changes BNP 7449, was given Lasix 20 mg IV by the ED Primary treatment will be to correct hemoglobin of 7.5. Consult cardiology Present on Admission?: Yes (2) Anemia due to blood loss: Hemoglobin 12 on 11/01, 8.5 on 11/02, and now 7.5 upon admission today. Has 2 units PRBCs ordered from the ED Will follow up with H&H post transfusion There is a hematoma 7 x 4.5 x 7 cm along the periphery of the right midabdomen. Consult general surgery Present on Admission?: Yes (3) SOB (shortness of breath): Combination of low hemoglobin and probable mild high-output heart failure We will transfuse PRBCs and give Lasix Present on Admission?: Yes (4) Hypertension: Continue lisinopril with hold parameters Present on Admission?: Yes (5) Aortic valve replaced: Not on anticoagulation Present on Admission?: Yes (6) S/P laparoscopic cholecystectomy: Consult general surgery Present on Admission?: Yes History of Present Illness Chief Complaint: The patient presents to the emergency department due to progressively worsening dyspnea on exertion over the past 2 days since being discharged from the hospital general surgery service on 11/03 Primary Care Provider: SILKE Martínez The patient is a 64-year-old female with a past medical history including hypertension and hyperlipidemia, status post AVR, and history of appendectomy, who underwent a cholecystectomy for acute cholecystitis during hospitalization from 11/01-11/03 on the general surgery service. She reports that over the past 2 days she has become progressively more dyspneic with even short walking distances. She does report some chest tightness during this time as well. She reports that she has been gradually returning toward her usual diet. Work-up in the emergency department included the following: Improving transaminases, with AST 46 and ALT 179. Hemoglobin was noted to be 12 on 11/01, decreased to 8.5 on 11/02, and upon presentation today is 7.5. Troponin is increased at 1.580, with no acute ST-T changes on EKG. BNP elevated at 7449. Allergies Allergy/AdvReac Type Severity Reaction Status Date / Time clonidine AdvReac Mild Unknown Verified 11/05/20 20:27 colestipol AdvReac Mild Unknown Verified 11/05/20 20:27 Home Medications Medication Instructions Recorded Confirmed Type hydrocodone-acetaminophen 1 - 2 tab PO .Q4-6h PRN #15 tab 11/02/20 11/05/20 Rx MDD 6 tabs lisinopril 30 mg PO DAILY 11/05/20 11/05/20 History rosuvastatin 40 mg PO DAILY 11/05/20 11/05/20 History Past Med/Surg History Medical History (Updated 11/06/20 @ 05:02 by Rip Barbour MD) Hypertension Surgical History (Updated 11/06/20 @ 05:02 by Rip Barbour MD) Aortic valve replaced S/P appendectomy S/P laparoscopic cholecystectomy (11/01/20) Laparoscopic Cholecystectomy - Jeff Sharma, 11/01/20 Social History Smoking Status: Never smoker Hx Alcohol Use: No Hx Substance Use: No Preferred Language: Kazakh Communication Ability: Effective [employer] Head Required: No Beliefs That Will Affect Care: None Current Living Situation: Spouse Other Information That Helps Us Care for You: No Feels Safe at Home: Yes Safety Concerns: Feels Safe At This Time Assistive Devices: Denture - Upper and Glasses Review of Systems Review of Systems: The patient denies palpitations, cough, lower extremity swelling, sore throat, fevers, chills, sweats, nausea, vomiting, diarrhea , constipation, abdominal pain, pelvic pain, blood in urine or stool, dysuria, urinary frequency or urgency, lightheadedness, dizziness, headache, memory loss, loss of consciousness, rash, abnormal bruising or bleeding, focal weakness, numbness or tingling in arms or legs, generalized arthralgias or myalgias, back or neck pain, or night sweats. The review of systems is otherwise negative other than for that already noted above, and at least 10 systems have been reviewed. Physical Exam Physical Exam: The patient is awake, alert and oriented 3, well developed and well nourished, normocephalic and atraumatic, lying in bed and in no acute distress. HEENT--PERRL, EOMI, mucous membranes and oropharynx normal. Neck--supple. No JVD. No bruits. Thyroid normal, trachea midline, no adenopathy. Heart--normal S1 and S2. No murmurs, rubs or gallops. Lungs--clear bilaterally, no respiratory distress, no accessory muscle use. Abdomen--normal bowel sounds and soft. Nontender. Nondistended. Extremities--no cyanosis or clubbing. No edema. Dermatologic--normal skin turgor, normal color, no abnormal lymph nodes, no rash. Neurologic--cranial nerves II through XII grossly intact. Rheumatologic--normal range of motion. Psychiatric--normal affect. Results & Data Results & Data ([facility]) Vital Signs (Past 12 Hours) Vital Signs Temp Pulse Pulse Resp BP BP Pulse Ox 11/05/20 23:22 60 16 115/72 98 11/05/20 20:42 99 11/05/20 20:27 75 20 99 11/05/20 20:03 97.3 F L 75 20 123/53 L 99 Laboratory Results Laboratory Results WBC 7.12 K/uL (4.8-10.8) 11/05/20 20:51 RBC 2.36 M/uL (4.2-5.4) L 11/05/20 20:51 Hgb 7.5 g/dL (12.0-16.0) L 11/05/20 20:51 Hct 22.3 % (37-47) L 11/05/20 20:51 MCV 94.5 fL (80-100) 11/05/20 20:51 MCH 31.8 pg (25-34) 11/05/20 20:51 MCHC 33.6 g/dL (32-36) 11/05/20 20:51 RDW Std Deviation 49.2 fL (36.4-46.3) H 11/05/20 20:51 RDW Coeff of Tanner 14.9 % (11.5-14.5) H 11/05/20 20:51 Plt Count 131 K/uL (130-400) 11/05/20 20:51 MPV 11.1 fL (7.4-10.4) H 11/05/20 20:51 Immature Gran % (Auto) 0.4 % 11/05/20 20:51 Neut % (Auto) 71.0 % 11/05/20 20:51 Lymph % (Auto) 16.2 % 11/05/20 20:51 [place] % (Auto) 9.8 % 11/05/20 20:51 Eos % (Auto) 2.5 % 11/05/20 20:51 Baso % (Auto) 0.1 % 11/05/20 20:51 Neut # (Auto) 5.05 K/uL (1.4-6.5) 11/05/20 20:51 Lymph # (Auto) 1.15 K/uL (1.2-3.4) L 11/05/20 20:51 [place] # (Auto) 0.70 K/uL (0.11-0.59) H 11/05/20 20:51 Eos # (Auto) 0.18 K/uL (0-0.5) 11/05/20 20:51 Baso # (Auto) 0.01 K/uL (0-0.2) 11/05/20 20:51 Immature Gran # (Auto) 0.03 K/uL (0.00-0.02) H 11/05/20 20:51 Polychromasia 1+ 11/05/20 20:51 PT 9.8 Seconds (9.0-12.0) 11/05/20 20:51 INR 1.0 (0.9-1.1) 11/05/20 20:51 APTT 21.0 Seconds (21.0-31.0) 11/05/20 20:51 PTT Ratio 0.8 11/05/20 20:51 Sodium 133 mmol/L (136-145) L 11/05/20 20:51 Potassium 3.9 mmol/L (3.5-5.1) 11/05/20 20:51 Chloride 103 mmol/L (98-107) 11/05/20 20:51 Carbon Dioxide 24 mmol/L (21-32) 11/05/20 20:51 Anion Gap 7.0 (3-11) 11/05/20 20:51 BUN 39 mg/dl (7-18) H 11/05/20 20:51 Creatinine 1.22 mg/dl (0.6-1.2) H 11/05/20 20:51 Est Cr Clr Drug Dosing 45.0 ml/min 11/05/20 20:51 Est GFR ( Amer) 53.8 11/05/20 20:51 Est GFR (Non-Af Amer) 46.5 11/05/20 20:51 BUN/Creatinine Ratio 31.6 (10-20) H 11/05/20 20:51 Glucose 114 mg/dl (70-99) H 11/05/20 20:51 Calcium 9.4 mg/dl (8.5-10.1) 11/05/20 20:51 Total Bilirubin 1.0 mg/dl (0.2-1) 11/05/20 20:51 AST 46 U/L (15-37) H 11/05/20 20:51 ALT 179 U/L (12-78) H 11/05/20 20:51 Alkaline Phosphatase 73 U/L (45-117) 11/05/20 20:51 Troponin I 1.580 ng/ml (0-0.045) H* 11/05/20 20:51 NT-Pro-B Natriuret Pep 7449 pg/ml (0-900) H 11/05/20 20:51 Total Protein 6.5 gm/dl (6.4-8.2) 11/05/20 20:51 Albumin 3.2 gm/dl (3.4-5.0) L 11/05/20 20:51 Globulin 3.3 gm/dl (2.5-4.0) 11/05/20 20:51 Albumin/Globulin Ratio 1.0 (0.9-2) 11/05/20 20:51 Urine Color Yellow 11/05/20 23:53 Urine Appearance Clear (Clear) 11/05/20 23:53 Urine pH 5.5 (4.5-7.5) 11/05/20 23:53 Ur Specific [place] 1.023 (1.000-1.030) 11/05/20 23:53 Urine Protein Negative (Negative) 11/05/20 23:53 Urine Glucose (UA) Negative (Negative) 11/05/20 23:53 Urine Ketones Negative (Negative) 11/05/20 23:53 Urine Blood Negative (Negative) 11/05/20 23:53 Urine Nitrite Negative (Negative) 11/05/20 23:53 Urine Bilirubin Negative (Negative) 11/05/20 23:53 Urine Urobilinogen Negative (Negative) 11/05/20 23:53 Ur Leukocyte Esterase Negative (Negative) 11/05/20 23:53 COVID-19 Eval Order CovFluRsv at [facility] 11/05/20 20:51 SARS-CoV-2 (PCR) NEGATIVE (Negative) 11/05/20 20:51 Influenza Type A (PCR) Negative (Neg) 11/05/20 20:51 Influenza Type B (PCR) Negative (Neg) 11/05/20 20:51 RSV (RT-PCR) Negative (Neg) 11/05/20 20:51 Blood Type A Positive 11/05/20 22:42 Blood Type Recheck A Positive 11/05/20 23:04 Antibody Screen NEGATIVE 11/05/20 22:42 Crossmatch See Detail 11/05/20 22:42 Diagnostic Findings [facility] Patient: ANGEL LUIS COOPER (Female) : 53 Status: ER Date: 11/05/20 22:17 Room #: History: recent cholecystectomy, increased shortness of breath denies abdominal pains Slices: [phone] Priors: Tech: Gladys Bone @ [phone] Exams: CTA CHEST Contrast: IV Amt: 100ml of optiray 350 Accession Numbers: [id number] Preliminary Findings Only See Final Report For Complete Findings CTA CHEST: No pulmonary embolism. Findings of CHF with interstitial edema and trace pleural effusions. Heart is enlarged with severe coronary artery calcifications. Status post CABG and aortic valve replacement. Radiologist: Jayden Schofield MD Study ready at 22:20 and initial results transmitted at 22:24 *This report constitutes a preliminary interpretation only. Non-acute findings felt to be unrelated to the clinical presentation may not be discussed in this report. The study will be interpreted and a final report will be generated by the local Radiologist the following shift. To reach the hospital radiology department call [phone]. If a discrepancy is found between the preliminary and final interpretations of this study, please notify us via our Client Portal at [email or web address].You can also fax this report with a description of the discrepancy, or include the final report, to our daytime fax number [phone].If faxing, please indicate the severity of discrepancy using one of the following categories: [ ] 1 - Agree/Informational [ ] 2 - Unlikely to Affect Management [ ] 3 - Possible Eventual Change of Management [ ] 4 - Probable Immediate Change of Management For all other patient related information, please fax us at [phone]. [id number] [facility] Patient: ANGEL LUIS COOPER (Female) : 53 Status: ER Date: 11/05/20 22:20 Room #: History: recent cholecystectomy, increased shortness of breath hgb drop, no appendix Slices: [phone] Priors: Tech: Lizandro Gladys @ [phone] Exams: CT ABDOMEN & PELVIS With Contrast Contrast: IV Amt: 100ml of optiray 350 Accession Numbers: [id number] Preliminary Findings Only See Final Report For Complete Findings CT ABDOMEN & PELVIS With Contrast: There is a hematoma along the periphery of the right mid abdomen measuring approximately 7 x 4.5 x 7 cm. Overlying soft tissue thickening and fat stranding within the abdominal wall musculature and subcutaneous fat. Small amount of blood products within the pelvis. Trace pleural effusions. Cholecystectomy. Radiologist: Jayden Schofield MD Study ready at 22:22 and initial results transmitted at 22:30 *This report constitutes a preliminary interpretation only. Non-acute findings felt to be unrelated to the clinical presentation may not be discussed in this report. The study will be interpreted and a final report will be generated by the local Radiologist the following shift. To reach the hospital radiology department call [phone]. If a discrepancy is found between the preliminary and final interpretations of this study, please notify us via our Client Portal at [email or web address].You can also fax this report with a description of the discrepancy, or include the final report, to our daytime fax number [phone].If faxing, please indicate the severity of discrepancy using one of the following categories: [ ] 1 - Agree/Informational [ ] 2 - Unlikely to Affect Management [ ] 3 - Possible Eventual Change of Management [ ] 4 - Probable Immediate Change of Management For all other patient related information, please fax us at [phone]. [id number] Code Status & VTE Plan Code Status Full code VTE Prophylaxis Plan VTE Prophylaxis will be ordered: Yes PG Care Time/CCT Total # of Minutes Spent Total Time Spent with Patient: Total time spent is greater than 50% in coordination of care (as documented) at patient's floor/unit and/or counseling patient: Coding Level of Care Code 66815 Initial Inpt Care Lvl 3 Diagnoses Elevated troponin I level R77.8 Anemia due to blood loss D50.0 SOB (shortness of breath) R06.02 Hypertension I10 Aortic valve replaced Z95.2 S/P laparoscopic cholecystectomy Z90.49
[2020-11-06 00:05] LABS: Appearance Urine Clear (Clear); Bilirubin Urine Negative (Negative); Blood Urine Negative (Negative); Color Urine Yellow; Glucose Urine UA Negative (Negative); Ketones Urine Negative (Negative); Leukocyte Esterase Urine Negative (Negative); Nitrite Urine Negative (Negative); Protein Urine Negative (Negative); Specific Gravity Urine 1.023 (1.000-1.030); Urobilinogen Urine Negative (Negative); pH Urine 5.5 (4.5-7.5)
[2020-11-06] MEDS ORDERED: NSS + 20MEQ KCL 20 MEQ/1,000 ML BAG IV SCH ×2 (01:34→06:00)
[2020-11-06] MEDS ORDERED: ACETAMINOPHEN 325 MG TAB PO PRN (01:34)
--- NOTE | 2020-11-06 07:48 | CT Scan Report ---
CT abd pelvis IV con only CLINICAL HISTORY: Anemia. Recent hemoglobin drop of 4.5 g. Recent gallbladder surgery. Shortness of b reath. COMPARISON STUDY: None. TECHNIQUE: The patient was scanned in a dynamic helical fashion during intravenous administration of 100 cc of Optiray 320 A dose lowering technique was utilized adhering to the principles of ALARA. CT DOSE: 935.25 mGy.cm FINDINGS: Lower chest: There are trace bilateral pleural effusions. There are bibasilar opacity statistically a telectatic Liver: There is mild periportal edema. No focal hepatic masses are visualized. The portal and hepatic veins appear patent. Gallbladder: Surgically absent. Spleen: Normal in size and attenuation. Pancreas: Unremarkable. Adrenal glands: Unremarkable. Kidneys: No solid renal masses are visualized. There is mild fullness the left renal collecting syste m versus parapelvic cysts. Bowel: There are no transition zones to indicate bowel obstruction. There is no evidence of acute div erticulitis. By history the appendix is surgically absent. Peritoneum: There is a small amount of hyperdense free pelvic fluid, likely hemorrhagic. There is a 7 cm mass, adjacent to the inferior aspect of the right lobe of the liver, likely representing a hemat alexia. There is no free air. Vasculature: The abdominal aorta is normal in course and caliber. Adenopathy: None. Pelvic viscera: The bladder, and pelvic viscera are unremarkable. Skeletal structures: There is enlargement of the right lateral abdominal wall musculature with infilt ration of the subcutaneous fat. This is likely postsurgical and may represent a combination of postsu rgical edema and hemorrhage. IMPRESSION: 1. No evidence of bowel obstruction. No evidence of free air 2. Trace pleural effusions 3. 7 cm mass within the right mid abdomen laterally, adjacent the inferior aspect of the liver, likel y representing a hematoma. There is associated soft tissue thickening and fat stranding within the ab dominal wall musculature and subcutaneous fat 4. Small amount of hyperdense free pelvic fluid, likely hemorrhagic ACT 112: Negative or not required by law. Electronically signed by: Kedar Scott M.D. 11/06/2020 7:46 AM
--- NOTE | 2020-11-06 08:11 | CT Scan Report ---
CT ANGIOGRAM OF THE CHEST CLINICAL HISTORY: SOB, recent surgery POSSIBLE PULMONARY EMBOLISM COMPARISON STUDY: 10/22/2014 TECHNIQUE: Following the IV administration of 100 mL of Optiray-320, CT angiogram of the thorax was p erformed from the thoracic inlet to the lung bases utilizing the pulmonary embolus protocol. Images a re reviewed in the axial, sagittal, and coronal planes. IV contrast was administered without complica tion. MIP imaging was performed. A dose lowering technique was utilized adhering to the principles o f ALARA. CT DOSE: FINDINGS: There are borderline enlarged mediastinal and hilar lymph nodes. There was no evidence of thoracic aortic dilatation.. There are postsurgical changes of a midline miguelina rnotomy. There are coronary artery calcifications. There were no pulmonary artery filling defects to indicate acute pulmonary embolism. There are small bilateral pleural effusions. There are dependent atelectatic changes. There is interlobular septal edema. IMPRESSION: 1. No evidence of acute pulmonary embolism 2. Small bilateral pleural effusions, and interlobular septal edema. Basilar atelectasis. 3. Postsurgical changes of a midline sternotomy and aortic valve replacement ACT 112: Negative or not required by law. Electronically signed by: Kedar Scott M.D. 11/06/2020 8:10 AM
--- NOTE | 2020-11-06 08:12 | Surgery Consultation ---
Date of Consultation November 06, 2020 Assessment & Plan (1) S/P laparoscopic cholecystectomy: (2) Anemia due to blood loss: no active bleed no surgical intervention will inform dr sharma in AM Present on Admission?: Yes History of Present Illness Attending Physician: Roland Graham MD History of Present Illness This is a 64-year-old female with a past medical history including hypertension and hyperlipidemia, status post AVR who underwent a cholecystectomy for acute cholecystitis last Saturday. She has had acute SOB with even short walking distances. She does report some chest tightness during this time as well. She reports minimal pain and is eating well without N/V. ER work=up showed significant blood loss anemia and a CT scan showing a 7 X7 cm hematoma. Hemoglobin was noted to be 12 on 11/01, decreased to 8.5 on 11/02, and upon presentation today is 7.5. Troponin also increased at 1.580, with no acute ST-T changes on EKG. BNP elevated at 7449. Allergies Allergy/AdvReac Type Severity Reaction Status Date / Time clonidine AdvReac Mild Unknown Verified 11/05/20 20:27 colestipol AdvReac Mild Unknown Verified 11/05/20 20:27 Home Medications Medication Instructions Recorded Confirmed Type hydrocodone-acetaminophen 1 - 2 tab PO .Q4-6h PRN #15 tab 11/02/20 11/05/20 Rx MDD 6 tabs lisinopril 30 mg PO DAILY 11/05/20 11/05/20 History rosuvastatin 40 mg PO DAILY 11/05/20 11/05/20 History Patient History Medical History (Updated 11/06/20 @ 05:02 by Rip Barbour MD) Hypertension Surgical History (Updated 11/06/20 @ 05:02 by Rip Barbour MD) Aortic valve replaced S/P appendectomy S/P laparoscopic cholecystectomy (11/01/20) Laparoscopic Cholecystectomy - Jeff Sharma, DO 11/01/20 Social History Smoking Status: Never smoker Hx Alcohol Use: No Hx Substance Use: No Preferred Language: Mexican Communication Ability: Effective [employer] Required: No Beliefs That Will Affect Care: None Current Living Situation: Spouse Other Information That Helps Us Care for You: No Feels Safe at Home: Yes Safety Concerns: Feels Safe At This Time Assistive Devices: Denture - Upper and Glasses Review of Systems Constitutional: + fatigue and + weakness; no fever and no chills Respiratory: + dyspnea and + dyspnea on exertion Cardiovascular: + chest pain Gastrointestinal: no abdominal pain, no nausea, no vomiting and no change in bowel habits Genitourinary: no dysuria Musculoskeletal: no back pain, no neck pain and no joint pain Integumentary: + change in skin color (bruising around incisions); no rash and no yellowing of the skin Neurologic: + generalized weakness; no localized weakness Psychiatric: no behavioral changes and no depression Endocrine: + fatigue; no polydipsia and no polyuria Hematologic / Lymphatic: + easy bleeding and + easy bruising; no night sweats Physical Exam Constitutional: well developed and well nourished; no acute distress Eyes: PERRL, conjunctivae normal, anicteric sclerae ENMT: external ear and nose normal, oropharynx normal Neck: trachea midline Respiratory: normal respiratory effort, lungs clear to auscultation Cardiovascular: RRR, no murmur, no edema Gastrointestinal (Abdomen): Inspection/Auscultation: normal bowel sounds, + abdominal wall ecchymosis and + abdominal surgical scar; abdomen not distended Percussion/Palpation: abdomen soft; abdomen nontender, no guarding and abdomen not rigid Musculoskeletal: Head/Neck/Chest: normocephalic and head atraumatic Skin: + ecchymosis; no jaundice Psychiatric: Orientation: alert and oriented x 3 Results & Data ([facility]) Vital Signs (Past 12 Hours) Vital Signs Temp Pulse Pulse Resp BP BP Pulse Ox 11/06/20 07:43 62 11/06/20 07:28 36.7 C 59 L 18 128/73 97 11/06/20 05:30 36.9 C 60 16 114/60 98 11/06/20 05:00 36.9 C 60 15 126/70 96 11/06/20 04:45 36.8 C 62 15 109/61 98 11/06/20 04:27 36.9 C 66 16 127/56 L 98 11/06/20 03:45 37 C 60 15 113/58 L 98 11/06/20 03:15 37 C 63 15 119/55 L 97 11/06/20 02:45 37 C 60 15 119/55 L 96 11/06/20 02:15 37.0 C 61 16 120/60 97 11/06/20 02:00 36.9 C 63 16 122/77 97 11/06/20 01:43 36.5 C 70 15 124/58 L 100 11/06/20 01:34 11/06/20 00:03 60 18 118/61 95 11/05/20 23:22 60 16 115/72 98 11/05/20 20:42 99 11/05/20 20:27 75 20 99 Pulse Ox 11/06/20 07:43 11/06/20 07:28 11/06/20 05:30 11/06/20 05:00 11/06/20 04:45 11/06/20 04:27 11/06/20 03:45 11/06/20 03:15 11/06/20 02:45 11/06/20 02:15 11/06/20 02:00 11/06/20 01:43 11/06/20 01:34 95 11/06/20 00:03 11/05/20 23:22 11/05/20 20:42 11/05/20 20:[address] scan with 7 cm hematoma and small amount of fluid in the pelvis
[2020-11-06] MEDS: lisinopril 10 MG TAB PO SCH (08:37)
[2020-11-06] MEDS: ROSUVASTATIN CALCIUM 20 MG TAB PO SCH (08:37)
[2020-11-06 08:45] LABS: Basophils # (auto) 0.01 K/uL (0-0.2); Basophils % (auto) 0.1 %; Eosinophils # (auto) 0.16 K/uL (0-0.5); Eosinophils % (auto) 2.2 %; Hemoglobin 10.9 g/dL (12.0-16.0); Immature Granulocytes # (auto) 0.03 K/uL (0.00-0.02); Immature Granulocytes % (auto) 0.4 %; Lymphocytes % (auto) 20.6 %; Mean Corpuscular Hemoglobin 31.4 pg (25-34); Mean Corpuscular Hgb Conc 34.1 g/dL (32-36); Mean Corpuscular Volume 92.2 fL (80-100); Monocytes # (auto) 0.78 K/uL (0.11-0.59); Monocytes % (auto) 10.7 %; Platelet Count 131 K/uL (130-400); RDW Coefficient of Variation 15.2 % (11.5-14.5); RDW Standard Deviation 48.2 fL (36.4-46.3); Red Blood Count 3.47 M/uL (4.2-5.4); White Blood Count 7.28 K/uL (4.8-10.8)
[2020-11-06 09:00] LABS: Albumin Level 3.4 gm/dl (3.4-5.0); BUN Creatinine Ratio 26.6 (10-20); Calcium 9.5 mg/dl (8.5-10.1); Est GFR (African American) 51.3; Est GFR (Non-African American) 44.3; Potassium 3.7 mmol/L (3.5-5.1)
[2020-11-06 09:08] LABS: Bilirubin,Total 2.3 mg/dl (0.2-1); Globulin 3.5 gm/dl (2.5-4.0); Total Protein 6.9 gm/dl (6.4-8.2); Troponin I 1.76 ng/ml (0-0.045)
--- NOTE | 2020-11-06 10:49 | Cardiology Consultation ---
Date of Consultation November 06, 2020 Assessment & Plan (1) Elevated troponin I level: She does not describe symptoms consistent with an acute coronary syndrome. She is known to have coronary artery disease he has significant coronary calcifications on her chest CT. I think the most likely explanation for her elevated biomarkers is simply severe anemia in the setting of fixed coronary disease. While her record suggests that she had some chest pain recently, she denied chest pain during my interview. She certainly feels better this morning. Clearly the best treatment at this point is restoring adequate hemoglobin levels. In the absence of any symptoms when she is ambulatory in the hospital, do not think I would pursue any additional coronary evaluation. (2) Aortic valve replaced: She had a bioprosthetic aortic valve replacement in 2012. No evidence of valve dysfunction. She claims to have had a recent evaluation. (3) Coronary artery disease: She reports a remote history of angioplasty. There is no evidence that she had bypass grafting at the time of her aortic valve replacement. I cannot see evidence of surgical clips on her chest x-ray or CT scan. She cannot recall if she underwent revascularization at that time. However, she has maintained her usual level of activity without development of new symptoms and did not have symptoms of chest discomfort associated with her current admission. At this point it seems reasonable to simply continue aggressive secondary prevention with high-dose rosuvastatin. Daily aspirin would also be recommended but is likely being held in the setting of her current bleeding. (4) Elevated brain natriuretic peptide (BNP) level: Generally suggestive of cardiac decompensation. However, most likely factor for her dyspnea was significant anemia. It is very possible that she was administered a significant amount of fluid during her last hospitalization and surgery. Her chest CT did not suggest pulmonary edema. Her lung examination revealed only occasional crackles. No evidence of pulmonary edema to suggest this is a right ventricular source. At this point I think I would simply monitor her symptoms. If she is ambulatory without significant breathing trouble and perhaps no intervention is required. If, despite improvement in her hemoglobin she continues to have dyspnea I would have a low threshold for administering diuretic. History of Present Illness Reason for Consultation: Elevated troponin Requesting Physician: Km Attending Physician: Roland Graham MD History of Present Illness The patient is a 64-year-old woman with a history of coronary artery disease and prior aortic valve replacement who recently underwent a laparoscopic cholecyst ectomy. This was in the setting of acute cholecystitis. It seems that the postoperative period was unremarkable and she was discharged home. Patient states that while at home she began to experience progressive shortness of breath. This developed the point where even mild activity produced significant breathing trouble. She had some minor discomfort in her right flank and did notice some ecchymosis. She did not report symptoms of dizziness or lightheadedness. She did not report symptoms of chest discomfort with activity. She did not report any irregularity in her heart rate but perhaps higher heart rates with activity. She did not report any orthopnea or paroxysmal nocturnal dyspnea and had no shortness of breath at rest. No significant abdominal pain. Eating and drinking well. The patient reports having undergone angioplasty in the . No stent placement. In 2011 she underwent a an aortic valve replacement at [facility]. She cannot recall if she underwent coronary grafting at that time. Subsequent to her valve operation she stated that she felt better but had some difficulty characterizing this statement. It seems that her exercise tolerance likely improved. She reports having had an echocardiogram in the recent past, but no additional coronary evaluations. She seems to have a normal activity tolerance. She states she walks regularly and takes care of a grandchild who is active. She has not report significant limitations associated with activity. No limiting dyspnea. No exertional chest pains. Allergies Allergy/AdvReac Type Severity Reaction Status Date / Time clonidine AdvReac Mild Unknown Verified 11/05/20 20:27 colestipol AdvReac Mild Unknown Verified 11/05/20 20:27 Home Medications Medication Instructions Recorded Confirmed Type lisinopril 30 mg PO DAILY 11/05/20 11/05/20 History rosuvastatin 40 mg PO DAILY 11/05/20 11/05/20 History acetaminophen-codeine 1 tab PO Q4H PRN #15 tab 11/07/20 Rx aspirin 81 mg PO DAILY 11/07/20 11/07/20 History Patient History Medical History (Updated 11/08/20 @ 00:07 by Cheryl Wetzel) Acute cholecystitis Hypertension Surgical History (Updated 11/06/20 @ 10:51 by Valentin Salcido MD) Aortic valve replaced Bioprosthetic aortic valve 2011 S/P appendectomy S/P laparoscopic cholecystectomy (11/01/20) Laparoscopic Cholecystectomy - Jeff Sharma DO 11/01/20 Social History Smoking Status: Never smoker Hx Alcohol Use: No Hx Substance Use: No Preferred Language: Guamanian Communication Ability: Effective Bandage Maker Required: No Beliefs That Will Affect Care: None Current Living Situation: Spouse Feels Safe at Home: Yes Assistive Devices: None Review of Systems Review of Systems: All systems reviewed & are unremarkable except as noted in HPI & below Physical Exam Physical Exam: She is alert and oriented x3. Mood affect appear normal. She answered all questions appropriately. HEENT: Sclerae are anicteric. Pupils are equal and reactive to light and accommodation. Extraocular movements were intact. Neuro: Cranial nerves intact Neck: Examination of the submandibular region did not reveal any significant lymphadenopathy. Carotids are palpable bilaterally and free of bruits on auscultation. There was no evidence of jugular venous distention. The thyroid was not enlarged. Lungs: Lungs are clear to auscultation bilaterally. There are no rales wheezes or rhonchi. She has normal respiratory effort without use of accessory muscles. There is normal pulmonary excursion. Cardiac: The rhythm was regular. S1 and S2 were normal. Crescendo systolic murmur heard best at the right sternal border. The PMI was not markedly displaced on palpation. Chest: Well-healed sternotomy scar appear Abdomen: Significant ecchymosis all along the right flank. Extremities: Patient has bilateral radial pulses that are equal in intensity. There is no evidence cyanosis or clubbing. There was no evidence of significant peripheral edema bilaterally. Skin: There are no rashes noted on examination today. Results & Data ([facility]) Vital Signs (Past 12 Hours) Vital Signs Temp Pulse Pulse Resp BP BP Pulse Ox 11/06/20 07:43 62 11/06/20 07:28 36.7 C 59 L 18 128/73 97 11/06/20 05:30 36.9 C 60 16 114/60 98 11/06/20 05:00 36.9 C 60 15 126/70 96 11/06/20 04:45 36.8 C 62 15 109/61 98 11/06/20 04:27 36.9 C 66 16 127/56 L 98 11/06/20 03:45 37 C 60 15 113/58 L 98 11/06/20 03:15 37 C 63 15 119/55 L 97 11/06/20 02:45 37 C 60 15 119/55 L 96 11/06/20 02:15 37.0 C 61 16 120/60 97 11/06/20 02:00 36.9 C 63 16 122/77 97 11/06/20 01:43 36.5 C 70 15 124/58 L 100 11/06/20 01:34 11/06/20 00:03 60 18 118/61 95 11/05/20 23:22 60 16 115/72 98 Pulse Ox 11/06/20 07:43 11/06/20 07:28 11/06/20 05:30 11/06/20 05:00 11/06/20 04:45 11/06/20 04:27 11/06/20 03:45 11/06/20 03:15 11/06/20 02:45 11/06/20 02:15 11/06/20 02:00 11/06/20 01:43 11/06/20 01:34 95 11/06/20 00:03 11/05/20 23:22 Laboratory Results Abnormal Lab Results 11/05/20 11/05/20 11/05/20 20:51 20:51 20:51 WBC 7.12 RBC 2.36 L Hgb 7.5 L Hct 22.3 L MCV 94.5 MCH 31.8 MCHC 33.6 RDW Std Deviation 49.2 H RDW Coeff of Tanner 14.9 H Plt Count 131 MPV 11.1 H Immature Gran % (Auto) 0.4 Neut % (Auto) 71.0 Lymph % (Auto) 16.2 Wake % (Auto) 9.8 Eos % (Auto) 2.5 Baso % (Auto) 0.1 Neut # (Auto) 5.05 Lymph # (Auto) 1.15 L Wake # (Auto) 0.70 H Eos # (Auto) 0.18 Baso # (Auto) 0.01 Immature Gran # (Auto) 0.03 H Polychromasia 1+ PT 9.8 INR 1.0 APTT 21.0 PTT Ratio 0.8 Sodium 133 L Potassium 3.9 Chloride 103 Carbon Dioxide 24 Anion Gap 7.0 BUN 39 H Creatinine 1.22 H Est Cr Clr Drug Dosing 45.0 Est GFR ( Amer) 53.8 Est GFR (Non-Af Amer) 46.5 BUN/Creatinine Ratio 31.6 H Glucose 114 H Calcium 9.4 Total Bilirubin 1.0 AST 46 H ALT 179 H Alkaline Phosphatase 73 Troponin I 1.580 H* NT-Pro-B Natriuret Pep 7449 H Total Protein 6.5 Albumin 3.2 L Globulin 3.3 Albumin/Globulin Ratio 1.0 Urine Color Urine Appearance Urine pH Ur Specific Leola Urine Protein Urine Glucose (UA) Urine Ketones Urine Blood Urine Nitrite Urine Bilirubin Urine Urobilinogen Ur Leukocyte Esterase COVID-19 Eval Order SARS-CoV-2 (PCR) Influenza Type A (PCR) Influenza Type B (PCR) RSV (RT-PCR) Blood Type Blood Type Recheck Antibody Screen Crossmatch 11/05/20 11/05/20 11/05/20 20:51 20:51 22:42 WBC RBC Hgb Hct MCV MCH MCHC RDW Std Deviation RDW Coeff of Tanner Plt Count MPV Immature Gran % (Auto) Neut % (Auto) Lymph % (Auto) Wake % (Auto) Eos % (Auto) Baso % (Auto) Neut # (Auto) Lymph # (Auto) Wake # (Auto) Eos # (Auto) Baso # (Auto) Immature Gran # (Auto) Polychromasia PT INR APTT PTT Ratio Sodium Potassium Chloride Carbon Dioxide Anion Gap BUN Creatinine Est Cr Clr Drug Dosing Est GFR ( Amer) Est GFR (Non-Af Amer) BUN/Creatinine Ratio Glucose Calcium Total Bilirubin AST ALT Alkaline Phosphatase Troponin I NT-Pro-B Natriuret Pep Total Protein Albumin Globulin Albumin/Globulin Ratio Urine Color Urine Appearance Urine pH Ur Specific Leola Urine Protein Urine Glucose (UA) Urine Ketones Urine Blood Urine Nitrite Urine Bilirubin Urine Urobilinogen Ur Leukocyte Esterase COVID-19 Eval Order CovFluRsv at [facility] [place] SARS-CoV-2 (PCR) NEGATIVE Influenza Type A (PCR) Negative Influenza Type B (PCR) Negative RSV (RT-PCR) Negative Blood Type A Positive Blood Type Recheck Antibody Screen NEGATIVE Crossmatch See Detail 11/05/20 11/05/20 11/06/20 23:04 23:53 08:31 WBC RBC Hgb Hct MCV MCH MCHC RDW Std Deviation RDW Coeff of Tanner Plt Count MPV Immature Gran % (Auto) Neut % (Auto) Lymph % (Auto) Wake % (Auto) Eos % (Auto) Baso % (Auto) Neut # (Auto) Lymph # (Auto) Wake # (Auto) Eos # (Auto) Baso # (Auto) Immature Gran # (Auto) Polychromasia PT INR APTT PTT Ratio Sodium 135 L Potassium 3.7 Chloride 103 Carbon Dioxide 26 Anion Gap 6.0 BUN 34 H Creatinine 1.27 H Est Cr Clr Drug Dosing 41.0 Est GFR ( Amer) 51.3 Est GFR (Non-Af Amer) 44.3 BUN/Creatinine Ratio 26.6 H Glucose 116 H Calcium 9.5 Total Bilirubin 2.3 H D AST 47 H ALT 167 H Alkaline Phosphatase 75 Troponin I 1.760 H* NT-Pro-B Natriuret Pep Total Protein 6.9 Albumin 3.4 Globulin 3.5 Albumin/Globulin Ratio 1.0 Urine Color Yellow Urine Appearance Clear Urine pH 5.5 Ur Specific Leola 1.023 Urine Protein Negative Urine Glucose (UA) Negative Urine Ketones Negative Urine Blood Negative Urine Nitrite Negative Urine Bilirubin Negative Urine Urobilinogen Negative Ur Leukocyte Esterase Negative COVID-19 Eval Order SARS-CoV-2 (PCR) Influenza Type A (PCR) Influenza Type B (PCR) RSV (RT-PCR) Blood Type Blood Type Recheck A Positive Antibody Screen Crossmatch 11/06/20 08:31 WBC 7.28 RBC 3.47 L Hgb 10.9 L D Hct 32.0 L MCV 92.2 MCH 31.4 MCHC 34.1 RDW Std Deviation 48.2 H RDW Coeff of Tanner 15.2 H Plt Count 131 MPV 11.0 H Immature Gran % (Auto) 0.4 Neut % (Auto) 66.0 Lymph % (Auto) 20.6 Wake % (Auto) 10.7 Eos % (Auto) 2.2 Baso % (Auto) 0.1 Neut # (Auto) 4.80 Lymph # (Auto) 1.50 Wake # (Auto) 0.78 H Eos # (Auto) 0.16 Baso # (Auto) 0.01 Immature Gran # (Auto) 0.03 H Polychromasia PT INR APTT PTT Ratio Sodium Potassium Chloride Carbon Dioxide Anion Gap BUN Creatinine Est Cr Clr Drug Dosing Est GFR ( Amer) Est GFR (Non-Af Amer) BUN/Creatinine Ratio Glucose Calcium Total Bilirubin AST ALT Alkaline Phosphatase Troponin I NT-Pro-B Natriuret Pep Total Protein Albumin Globulin Albumin/Globulin Ratio Urine Color Urine Appearance Urine pH Ur Specific Leola Urine Protein Urine Glucose (UA) Urine Ketones Urine Blood Urine Nitrite Urine Bilirubin Urine Urobilinogen Ur Leukocyte Esterase COVID-19 Eval Order SARS-CoV-2 (PCR) Influenza Type A (PCR) Influenza Type B (PCR) RSV (RT-PCR) Blood Type Blood Type Recheck Antibody Screen Crossmatch Diagnostic Findings Chest and abdomen CT did not reveal any evidence of a pulmonary embolus. There was evidence of an intra-abdominal hematoma ECG Additional Comments: EKG obtained the time admission revealed normal sinus rhythm. Some nonspecific T-wave changes in the anterior precordial leads more noticeable than that seen on her preoperative EKG. No acute ST segment changes PG Care Time/CCT Total # of Minutes Spent Total Time Spent with Patient: Total time spent is greater than 50% in coordination of care (as documented) at patient's floor/unit and/or counseling patient: Coding Level of Care Code 24890 Initial Inpt Care Lvl 3 Diagnoses Elevated troponin I level R77.8 Aortic valve replaced Z95.2 Coronary artery disease I25.10 Elevated brain natriuretic peptide (BNP) level R79.89
--- NOTE | 2020-11-06 12:57 | Hospitalist Progress Note ---
Date of Service November 06, 2020 Assessment & Plan (1) Elevated troponin I level: Suspected demand-ischemia. No chest pain or shortness of breath to suggest ACS. Primary treatment will be to correct hemoglobin of 7.5. Appreciate cardiology consult - discussed with Dr Salcido. (2) Anemia due to blood loss: Hemoglobin 12 on 11/01, 8.5 on 11/02, and now 7.5 upon admission. s/p 2 units packed RBCs, hemoglobin 10.9 There is a hematoma 7 x 4.5 x 7 cm along the periphery of the right midabdomen. Appreciate surgery consult, no acute intervention required. (3) SOB (shortness of breath): Combination of low hemoglobin and probable mild high-output heart failure Discontinue IV fluids. Lasix given on admission. (4) Hypertension: Continue lisinopril with hold parameters (5) Aortic valve replaced: Not on anticoagulation (6) S/P laparoscopic cholecystectomy: Consult general surgery Admission and Anticipated Discharge Date Admission Date: November 05, 2020 Subjective Patient doing well today. No chest pain, shortness of breath, orthopnea, PND. She does not feel the hematoma is increasing in size. Review of Systems Review of Systems: All systems reviewed & are unremarkable except as noted in HPI & below Physical Exam Constitutional: well developed and well nourished; no acute distress Eyes: no conjunctival abnormality ENMT: external ear and nose normal, oropharynx normal Respiratory: normal respiratory effort, lungs clear to auscultation Cardiovascular: RRR, no murmur, no edema Gastrointestinal (Abdomen): normal bowel sounds, soft, nontender, no hepatosplenomegaly Musculoskeletal: no cyanosis or clubbing, extremities motor strength 5/5 Skin: Trauma: + hematoma (Right flank) Neurologic: moves all extremities and awake; not confused Psychiatric: A+Ox3, euthymic affect Results & Data Results & Data ([facility]) Vital Signs (Past 12 Hours) Vital Signs Temp Pulse Pulse Resp BP BP Pulse Ox 11/06/20 11:25 37.1 C 66 18 121/66 96 11/06/20 07:43 62 11/06/20 07:28 36.7 C 59 L 18 128/73 97 11/06/20 05:30 36.9 C 60 16 114/60 98 11/06/20 05:00 36.9 C 60 15 126/70 96 11/06/20 04:45 36.8 C 62 15 109/61 98 11/06/20 04:27 36.9 C 66 16 127/56 L 98 11/06/20 03:45 37 C 60 15 113/58 L 98 11/06/20 03:15 37 C 63 15 119/55 L 97 11/06/20 02:45 37 C 60 15 119/55 L 96 11/06/20 02:15 37.0 C 61 16 120/60 97 11/06/20 02:00 36.9 C 63 16 122/77 97 11/06/20 01:43 36.5 C 70 15 124/58 L 100 11/06/20 01:34 Pulse Ox 11/06/20 11:25 11/06/20 07:43 11/06/20 07:28 11/06/20 05:30 11/06/20 05:00 11/06/20 04:45 11/06/20 04:27 11/06/20 03:45 11/06/20 03:15 11/06/20 02:45 11/06/20 02:15 11/06/20 02:00 11/06/20 01:43 11/06/20 01:34 95 PG Care Time/CCT Total # of Minutes Spent Total Time Spent with Patient: Total time spent is greater than 50% in coordination of care (as documented) at patient's floor/unit and/or counseling patient: Coding Level of Care Code 65751 Subseq Hosp Care Lvl 2 Diagnoses Elevated troponin I level R77.8 Anemia due to blood loss D50.0 SOB (shortness of breath) R06.02 Hypertension I10 Aortic valve replaced Z95.2 S/P laparoscopic cholecystectomy Z90.49
--- NOTE | 2020-11-06 13:04 | Electrocardiogram Report ---
Test Reason : Blood Pressure : / mmHG Vent. Rate : 062 BPM Atrial Rate : 062 BPM P-R Int : 176 ms QRS Dur : 084 ms QT Int : 418 ms P-R-T Axes : 034 018 076 degrees QTc Int : 424 ms Normal sinus rhythm Nonspecific ST and T wave abnormality Abnormal ECG When compared with ECG of 01-NOV-2020 05:15, Inverted T waves have replaced nonspecific T wave abnormality in Anterior leads Confirmed by Judd Salcido ([id number]) on 11/06/2020 1:04:00 PM Referred By: REFERRED SELF Confirmed By:Shiv Salcido
[2020-11-06 20:14] LABS: Hematocrit (blood only) 28.7 % (37-47); Hemoglobin 9.8 g/dL (12.0-16.0)
[2020-11-07 07:07] LABS: Basophils # (auto) 0.02 K/uL (0-0.2); Basophils % (auto) 0.3 %; Eosinophils # (auto) 0.26 K/uL (0-0.5); Eosinophils % (auto) 4.2 %; Hematocrit (blood only) 30.4 % (37-47); Hemoglobin 10.5 g/dL (12.0-16.0); Immature Granulocytes # (auto) 0.03 K/uL (0.00-0.02); Immature Granulocytes % (auto) 0.5 %; Lymphocytes # (auto) 1.05 K/uL (1.2-3.4); Mean Corpuscular Hemoglobin 32.1 pg (25-34); Mean Corpuscular Hgb Conc 34.5 g/dL (32-36); Monocytes # (auto) 0.62 K/uL (0.11-0.59); Monocytes % (auto) 10.1 %; Neutrophils # (auto) 4.18 K/uL (1.4-6.5); Neutrophils % (auto) 67.9 %; Platelet Count 136 K/uL (130-400); RDW Coefficient of Variation 16.3 % (11.5-14.5); RDW Standard Deviation 51.7 fL (36.4-46.3); Red Blood Count 3.27 M/uL (4.2-5.4); White Blood Count 6.16 K/uL (4.8-10.8)
[2020-11-07 07:39] LABS: Albumin Level 2.9 gm/dl (3.4-5.0); BUN Creatinine Ratio 22.9 (10-20); Creatinine Clr Calc Pharmacy 52.4 ml/min; Est GFR (African American) 66.8; Est GFR (Non-African American) 57.7; Potassium 4.2 mmol/L (3.5-5.1)
[2020-11-07 07:41] LABS: Albumin Globulin Ratio 0.9 (0.9-2); Bilirubin,Total 2.2 mg/dl (0.2-1); Globulin 3.2 gm/dl (2.5-4.0); Total Protein 6.1 gm/dl (6.4-8.2)
[2020-11-07] MEDS: ROSUVASTATIN CALCIUM 20 MG TAB PO SCH (07:59)
[2020-11-07] MEDS: lisinopril 10 MG TAB PO SCH (08:00)
[2020-11-07] MEDS ORDERED: ACETAMINOPHEN W/CODEINE #3 1 TAB PO PRN (08:59)
--- NOTE | 2020-11-07 09:04 | Cardiology Progress Note ---
Date of Service November 07, 2020 Assessment & Plan Admission and Anticipated Discharge Date Admission Date: November 05, 2020 Subjective She denies any chest pain chest pressure chest heaviness this morning. She denies any lightheadedness or dizziness. She denies any shortness of breath. She is having significant right upper quadrant discomfort more posteriorly where her hematoma is located. She is also very tearful noting that she feels very isolated in the hospital and that her pain now is worse than when she came in. She has any palpitations or fluttering. She denies any orthopnea. Results & Data ([facility]) Vital Signs (Past 12 Hours) Vital Signs Temp Pulse Pulse Resp BP BP Pulse Ox 11/07/20 07:20 36.9 C 68 91 H 16 167/95 H 96 11/07/20 03:31 36.8 C 81 18 114/65 94 11/06/20 23:50 69 11/06/20 22:52 37.0 C 76 18 119/69 94 she is awake alert and oriented x3 she is tearful this morning HEENT: 2+ carotid upstrokes bilateral carotid bruits radiating from her heart Lungs: Decreased breath sounds in the bases bilaterally no rales rhonchi or wheezing Heart: Regular rate and rhythm there is a harsh crescendo decrescendo murmur which is mid to late peaking S2 is well-preserved Abdomen: Soft nontender distended positive bowel sounds significant right upper quadrant tenderness Extremities: Trace bilateral lower extremity edema Impressions: 1. Status post hematoma secondary to surgery for acute cholecystectomy last week 2. Coronary disease status post coronary bypass grafting x2 with MORIN to the LAD and SVG to the RCA 3. 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 Preserved left ventricular systolic function 5. Small troponin spill likely secondary to demand ischemia and associated anemia Her hemoglobin is stable this morning. Her troponin is trending down. Her blood pressures before this morning when she was in a significant amount of pain have been well controlled. From my standpoint she can go home and given her emotional state she will be much better off at home and she will be here in the hospital with appropriate pain control. I did give her a stat dose of Tylenol 3 this morning. She denies any anginal symptoms or heart failure symptoms she may need a as needed dose of Lasix when she goes home just that she reabsorbs all of the volume that her she received with her resuscitation upon admission. Her renal function is stable and actually improved. She does not appear prerenal on her laboratory studies. She can follow-up in the office as normally scheduled. All this was discussed with the nursing staff
--- NOTE | 2020-11-07 12:16 | Discharge Summary ---
Date of Service November 07, 2020 Admission HPI Per Admitting Provider The patient is a 64-year-old female with a past medical history including hypertension and hyperlipidemia, status post AVR, and history of appendectomy, who underwent a cholecystectomy for acute cholecystitis during hospitalization from 11/01-11/03 on the general surgery service. She reports that over the past 2 days she has become progressively more dyspneic with even short walking distances. She does report some chest tightness during this time as well. She reports that she has been gradually returning toward her usual diet. Work-up in the emergency department included the following: Improving transaminases, with AST 46 and ALT 179. Hemoglobin was noted to be 12 on 11/01, decreased to 8.5 on 11/02, and upon presentation today is 7.5. Troponin is increased at 1.580, with no acute ST-T changes on EKG. BNP elevated at 7449. Principal Diagnosis Symptomatic anemia, Elevated troponin Discharge Exam Constitutional WD/WN, vitals as above Eyes + anicteric sclerae Neck trachea midline, no thyromegaly Respiratory normal respiratory effort, lungs clear to auscultation Cardiovascular Rate/Rhythm: regular rate and regular rhythm Heart Sounds: + murmur (3/6 systolic murmur at RUSB) Extremities: no edema Chest (Breasts) Chest: normal inspection of chest Gastrointestinal (Abdomen) Inspection/Auscultation: normal bowel sounds and + abdominal wall ecchymosis (large over right side and rt inguinal region,with palpable hematoma); + abdomen abnormal to inspection Percussion/Palpation: + abdomen tender (mild over hematoma) and abdomen soft; no guarding Musculoskeletal Extremities: extremities normal to inspection; no cyanosis and no clubbing Skin no rashes, warm and dry Neurologic moves all extremities and awake; no focal motor deficits Psychiatric A+Ox3, euthymic affect Lymphatic no lymphedema Discharge Data Allergies Allergy/AdvReac Type Severity Reaction Status Date / Time clonidine AdvReac Mild Unknown Verified 11/05/20 20:27 colestipol AdvReac Mild Unknown Verified 11/05/20 20:27 Consultations 11/05/20 22:33 ED Decision to Admit Stat 11/06/20 04:58 Consult General Surgery Routine 11/06/20 05:20 Consult Cardiology Routine Ordered Studies 11/05/20 20:27 CT angio chest PE protocol Urgent 11/05/20 22:00 CT abd pelvis IV con only Urgent Chest CTA 11/05/20 20:27 CT ANGIOGRAM OF THE CHEST CLINICAL HISTORY: SOB, recent surgery POSSIBLE PULMONARY EMBOLISM COMPARISON STUDY: 10/22/2014 TECHNIQUE: Following the IV administration of 100 mL of Optiray-320, CT angiogram of the thorax was performed from the thoracic inlet to the lung bases utilizing the pulmonary embolus protocol. Images are reviewed in the axial, sagittal, and coronal planes. IV contrast was administered without complication. MIP imaging was performed. A dose lowering technique was utilized adhering to the principles of ALARA. CT DOSE: FINDINGS: There are borderline enlarged mediastinal and hilar lymph nodes. There was no evidence of thoracic aortic dilatation.. There are postsurgical changes of a midline sternotomy. There are coronary artery calcifications. There were no pulmonary artery filling defects to indicate acute pulmonary embolism. There are small bilateral pleural effusions. There are dependent atelectatic changes. There is interlobular septal edema. IMPRESSION: 1. No evidence of acute pulmonary embolism 2. Small bilateral pleural effusions, and interlobular septal edema. Basilar atelectasis. 3. Postsurgical changes of a midline sternotomy and aortic valve replacement ACT 112: Negative or not required by law. Electronically signed by: Kedar Scott M.D. 11/06/2020 8:10 AM Abdomen/Pelvis CT 11/05/20 22:00 CT abd pelvis IV con only CLINICAL HISTORY: Anemia. Recent hemoglobin drop of 4.5 g. Recent gallbladder surgery. Shortness of breath. COMPARISON STUDY: None. TECHNIQUE: The patient was scanned in a dynamic helical fashion during intravenous administration of 100 cc of Optiray 320 A dose lowering technique was utilized adhering to the principles of ALARA. CT DOSE: 935.25 mGy.cm FINDINGS: Lower chest: There are trace bilateral pleural effusions. There are bibasilar opacity statistically atelectatic Liver: There is mild periportal edema. No focal hepatic masses are visualized. The portal and hepatic veins appear patent. Gallbladder: Surgically absent. Spleen: Normal in size and attenuation. Pancreas: Unremarkable. Adrenal glands: Unremarkable. Kidneys: No solid renal masses are visualized. There is mild fullness the left renal collecting system versus parapelvic cysts. Bowel: There are no transition zones to indicate bowel obstruction. There is no evidence of acute diverticulitis. By history the appendix is surgically absent. Peritoneum: There is a small amount of hyperdense free pelvic fluid, likely hemorrhagic. There is a 7 cm mass, adjacent to the inferior aspect of the right lobe of the liver, likely representing a hematoma. There is no free air. Vasculature: The abdominal aorta is normal in course and caliber. Adenopathy: None. Pelvic viscera: The bladder, and pelvic viscera are unremarkable. Skeletal structures: There is enlargement of the right lateral abdominal wall musculature with infiltration of the subcutaneous fat. This is likely postsurgical and may represent a combination of postsurgical edema and hemorrhage. IMPRESSION: 1. No evidence of bowel obstruction. No evidence of free air 2. Trace pleural effusions 3. 7 cm mass within the right mid abdomen laterally, adjacent the inferior as pect of the liver, likely representing a hematoma. There is associated soft tissue thickening and fat stranding within the abdominal wall musculature and subcutaneous fat 4. Small amount of hyperdense free pelvic fluid, likely hemorrhagic ACT 112: Negative or not required by law. Electronically signed by: Kedar Scott M.D. 11/06/2020 7:46 AM Hospital Course (1) Elevated troponin I level: Suspected myocardial demand-ischemia. No chest pain or shortness of breath to suggest ACS. Primary treatment will be to correct hemoglobin of 7.5. Appreciate cardiology consult -stable for dc (2) Anemia due to blood loss: Symptomatic anemia secondary to post-op hematoma of abd wal s/p lap simnó Hemoglobin 12 on 11/01, 8.5 on 11/02, and then 7.5 upon admission. s/p 2 units packed RBCs, hemoglobin 10.5 and stable x 2 days There is a hematoma 7 x 4.5 x 7 cm along the periphery of the right midabdomen. Appreciate surgery consult, no acute intervention required. Check CBC in 2 days as outpt, continue to hold home ASA until after repeat CBC (3) SOB (shortness of breath): Combination of low hemoglobin and probable mild high-output heart failure now resolved after transfusion PRBCs Lasix given on admission. (4) Hypertension: Continue lisinopril BPs normal to midly elevated (5) Aortic valve replaced: bioprosthetic follows with Cardiology (6) S/P laparoscopic cholecystectomy: Consult general surgery appreciated--> no treatment needed for hematoma Dispo-stable for dc to home Total Time Total Time Spent Total Time Spent (In Minutes): 35 min Total Time Includes: Examination of the Patient, Discharge Planning, Medication Reconciliation and Communication With Other Providers (Surgery) Discharge Plan Discharge Items Patient Disposition: Home - Self-Care Reason For Visit: SYMPTOMATIC ANEMIA Discharge Diagnosis: Symptomatic anemia, abdominal wall hematoma Condition on Discharge: Good Activity: As commented below Lifting: No more than 5 pounds Bathing: No limitations Exercise/Sports: Gradually increase as tolerated Non-emergency contact: Primary Care Provider, Surgeon and Rfid Manager Call non-emergency contact if: you have any medication questions, your symptoms worsen, your pain is not controlled, your pain is worsening, your pain is unusual for you, your pain is concerning for you, you have a fever, your t emperature is above 101, your wound has increased redness, your wound has increased drainage and your wound pain has increased Follow-up/Referrals: Jeff Sharma DO [Surgeon] - (Follow up as scheduled next week.) Destinee Núñez CRNP [Primary Care Provider] - (Follow up within 1-2 weeks.) Diet: Heart Healthy Ambulatory Orders: Complete Blood Count with Diff (Timed) Timeframe: 2 Days Location: Determined by Patient Ordered By: Caprice Butler Addtl Attending Provider Instructions: Please have your blood count checked with lab work in 2 days. Please continue to HOLD your aspirin until the results of that blood test are returned and stable from previous. If you develop chest pain, shortness of breath, lightheadedness, worsening pain, or fevers, please return to the hospital. Pending Studies at Discharge: No Stand-Alone Forms: My [facility] Medications and DC Order Prescriptions: New acetaminophen-codeine 300-30 mg Tablet 1 tab PO Q4H PRN (Reason: pain) Qty: 15 RF: 0 Continued lisinopril 30 mg tablet 30 mg PO DAILY RF: 0 rosuvastatin 40 mg tablet 40 mg PO DAILY RF: 0 aspirin 81 mg Tablet 81 mg PO DAILY RF: 0 Discontinued hydrocodone-acetaminophen 5-325 mg tablet 1 - 2 tab PO .Q4-6h MDD 6 tabs PRN (Reason: pain, initial therapy) Qty: 15 RF: 0 Discharge Orders: Discharge Order (Routine); Ordered 11/07/20 Ordered By: Caprice Butler Admission Data Admit Date/Time: 11/05/20 23:54 Attending Provider: Caprice Butler Admit Provider: Rip Barbour Primary Care Provider: Destinee Núñez Other Providers: Rip Barbour ; Jeff Sharma ; Sarabjit Neri Coding Level of Care Code D/C Day Management >30 mins Diagnoses Elevated troponin I level R77.8 Anemia due to blood loss D50.0 SOB (shortness of breath) R06.02 Hypertension I10 Aortic valve replaced Z95.2 S/P laparoscopic cholecystectomy Z90.49
--- NOTE | 2020-11-07 12:58 | Surgery Progress Note ---
Date of Service November 07, 2020 Assessment & Plan (1) S/P laparoscopic cholecystectomy: clinically doing well ok for d/c today no intervention needed for hematoma....should self resolve. f/u with me 1 week as scheduled. Admission and Anticipated Discharge Date Admission Date: November 05, 2020 Subjective pt seen. events of this weekend noted. feeling better. no sob/cp. eating. some mild RUQ discomfort. Physical Exam Physical Exam: alert. nad abd: soft. incisions c/d/i. no sign of infection. expected post operative tenderness. no g/r/r Results & Data ([facility]) Vital Signs (Past 12 Hours) Vital Signs Temp Pulse Pulse Pulse Resp BP BP 11/07/20 12:14 36.7 C 68 67 18 153/79 H 167/95 H 11/07/20 11:38 36.7 C 67 18 153/79 H 11/07/20 07:20 36.9 C 68 91 H 16 167/95 H 11/07/20 03:31 36.8 C 81 18 114/65 Pulse Ox 11/07/20 12:14 98 11/07/20 11:38 98 11/07/20 07:20 96 11/07/20 03:31 94 PG Care Time/CCT Total # of Minutes Spent Total Time Spent with Patient: Total time spent is greater than 50% in coordina tion of care (as documented) at patient's floor/unit and/or counseling patient: Coding Level of Care Code None Diagnoses S/P laparoscopic cholecystectomy Z90.49
== END 2020-11-07 12:52 | disposition home or self-care (01) ==
LOC: ED 19:59 → SUATTDRO 23:54 → INTOOBSV 23:54 → 2N 23:54

== ENCOUNTER 2021-08-29 21:33 | Observation (INO) ==
[2021-08-29 22:41] LABS: Basophils # (auto) 0.02 K/uL (0-0.2); Basophils % (auto) 0.4 %; Eosinophils % (auto) 4.5 %; Hematocrit (blood only) 38.3 % (37-47); Hemoglobin 12.9 g/dL (12.0-16.0); Immature Granulocytes # (auto) 0.01 K/uL (0.00-0.02); Immature Granulocytes % (auto) 0.2 %; Lymphocytes # (auto) 1.42 K/uL (1.2-3.4); Lymphocytes % (auto) 31.7 %; Mean Corpuscular Hemoglobin 31.9 pg (25-34); Mean Corpuscular Hgb Conc 33.7 g/dL (32-36); Mean Corpuscular Volume 94.6 fL (80-100); Mean Platelet Volume 10.8 fL (7.4-10.4); Monocytes # (auto) 0.47 K/uL (0.11-0.59); Monocytes % (auto) 10.5 %; Neutrophils # (auto) 2.36 K/uL (1.4-6.5); Neutrophils % (auto) 52.7 %; Platelet Count 127 K/uL (130-400); RDW Coefficient of Variation 13.1 % (11.5-14.5); RDW Standard Deviation 45.6 fL (36.4-46.3); Red Blood Count 4.05 M/uL (4.2-5.4); White Blood Count 4.48 K/uL (4.8-10.8)
[2021-08-29 22:57] LABS: Ovalocytes 1+
[2021-08-29] MEDS ORDERED: NITROGLYCERIN 2% OINTMENT 30GM TUBE EXT ONE (23:07)
[2021-08-29] MEDS ORDERED: ASPIRIN CHEW 324 MG PO STA (23:07)
[2021-08-29 23:11] LABS: Troponin I < 0.03 ng/ml (0-0.04)
--- NOTE | 2021-08-29 23:13 | Emergency Department Note ---
History of Present Illness General Chief complaint: Chest Pain Stated complaint: CHEST PAIN, PAIN IN LT ARM Time Seen by Provider: 08/29/21 22:58 History of Present Illness Maximum Pain Intensity: 4 This is a 65-year-old female presenting to the emergency department for evaluation of left-sided chest pain and left-sided shoulder pain for the past few days. The patient states that she knows that she has arthritis in the left shoulder and that some of her symptoms do worsen with movement. She has never had discomfort in her chest with this however, which is new. She does have a known history of coronary artery disease and aortic valve replacement. She follows with Dr. Sergio krueger of cardiology. The patient has not had fevers or chills. She was not able to sleep for the past 2 nights because of her discomfort which waxes and wanes. She rates the current discomfort a 4/10. She has not taken anything [id number] for symptoms. Home Medications Medication Instructions Recorded Confirmed Type lisinopril 30 mg tablet 30 mg PO DAILY 11/05/20 08/29/21 History rosuvastatin 40 mg tablet 40 mg PO DAILY 11/05/20 08/29/21 History aspirin 81 mg tablet,delayed 81 mg PO DAILY 08/29/21 08/29/21 History release cholecalciferol (vitamin D3) 50 50 mcg PO DAILY 08/29/21 08/29/21 History mcg (2,000 unit) capsule (Vitamin D3) coenzyme Q10 100 mg capsule 100 mg PO DAILY 08/29/21 08/29/21 History (CoQ-10) omega 3-jzx-lyg-fish oil 1,000 mg 1 cap PO BID 08/29/21 08/29/21 History (120 mg-180 mg) capsule (Fish Oil) Allergies Allergy/AdvReac Type Severity Reaction Status Date / Time clonidine AdvReac Unknown CAN'T Verified 08/29/21 23:28 REMEMBER colestipol AdvReac Unknown CAN'T Verified 08/29/21 23:28 REMEMBER Past Med/Surg History Medical History Aortic valve replaced Bioprosthetic aortic valve 2011 Coronary artery disease s/p CABG x 2v Hypertension Surgical History History of coronary artery bypass graft x 2 MORIN to LAD and SVG to RCA S/P appendectomy S/P laparoscopic cholecystectomy (11/01/20) Laparoscopic Cholecystectomy - Jeff Sharma DO 11/01/20 Social History Smoking Status: Former smoker Smoking End Date: 35 years ago; Hx Alcohol Use: No Hx Substance Use: No Preferred Language: Jamaican Communication Ability: Effective 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 Beliefs That Will Affect Care: None Current Living Situation: Spouse Other Information That Helps Us Care for You: No Feels Safe at Home: Yes Safety Concerns: Feels Safe At This Time Assistive Devices: Glasses Review of Systems A total of 10 systems reviewed and were otherwise negative Physical Exam Vital Signs Vital Signs - 24 hr 08/29/21 21:38 08/29/21 23:05 08/29/21 23:31 Temperature 36.4 C L Temperature Source Temporal Artery Scan Pulse Rate 104 H 55 L 52 L Pulse Rate [Apical] Pulse Rate from SpO2 Sensor 53 L Respiratory Rate 16 17 19 Respiratory Effort / Characteristics Blood Pressure 191/79 H 163/75 H 151/61 H Blood Pressure [Right Arm] Blood Pressure Mean 116 104 91 Blood Pressure Mean [Right Arm] Blood Pressure Position Sitting Pulse Oximetry 100 99 100 Oxygen Delivery Method Room Air Room Air Room Air Sepsis Recent Fever Within 48 Hours No Sepsis New/Unexplained Change in Mental Status No Sepsis Action Taken by Nursing No Action Required 08/30/21 00:44 08/30/21 01:01 08/30/21 02:30 Temperature Temperature Source Pulse Rate 47 L 47 L Pulse Rate [Apical] 48 L Pulse Rate from SpO2 Sensor Respiratory Rate 16 14 14 Respiratory Effort / Characteristics Non-Labored Spontaneous Blood Pressure 131/79 146/44 H Blood Pressure [Right Arm] 156/56 H Blood Pressure Mean 96 78 Blood Pressure Mean [Right Arm] 89 Blood Pressure Position Pulse Oximetry 99 98 Oxygen Delivery Method Room Air Room Air Sepsis Recent Fever Within 48 Hours Sepsis New/Unexplained Change in Mental Status Sepsis Action Taken by Nursing VITALS: Vitals are noted on the nurse's note and reviewed by myself. Vital signs stable. GENERAL: Well-developed, well-nourished, elderly white female, who is in no acute distress and resting comfortably. Patient is cooperative with the examination. HEAD: Normocephalic atraumatic. HEART: Regular rate and rhythm with systolic murmur and click noted LUNGS: Clear to auscultation bilaterally without wheezes, rales or rhonchi. No retractions or accessory muscle use. ABDOMEN: Positive normal bowel sounds x 4. Soft, nontender, without masses or organomegaly. No guarding or rebound tenderness. MUSCULOSKELETAL: No muscle atrophy, erythema, or edema noted. Full range of motion in all extremities. Course Administered Medications Discontinued Medications Aspirin (Aspirin Chew 324 Mg) 324 mg PO NOW STA Stop: 08/29/21 23:08 Last Admin: 08/29/21 23:20 Dose: 324 mg Documented by: [id number] Ioversol (Optiray 320 125ml) 120 ml IV ONCE ONE Stop: 08/30/21 00:14 Last Admin: 08/30/21 00:13 Dose: 120 ml Documented by: [id number] Nitroglycerin (Nitroglycerin 2% Ointment 30gm Tube) 1 inch EXT NOW ONE Stop: 08/29/21 23:08 Last Admin: 08/29/21 23:20 Dose: 1 inch Documented by: [id number] Medical Decision Making Differential Diagnosis Differential diagnosis includes, but is not limited to: Myocardial infarction, dysrhythmia, pericarditis, pneumothorax, aortic aneurysm/dissection, DVT/PE, anxiety, GERD, PUD, electrolyte imbalance, thyroid disorder, pneumonia, bronchitis, pancreatitis, and others Laboratory Data Result diagrams: 08/29/21 22:29 08/30/21 00:42 Lab Results 08/29/21 08/29/21 08/29/21 Range/Units 22:29 22:29 22:29 WBC 4.48 L (4.8-10.8) K/uL RBC 4.05 L (4.2-5.4) M/uL Hgb 12.9 (12.0-16.0) g/dL Hct 38.3 (37-47) % MCV 94.6 (80-100) fL MCH 31.9 (25-34) pg MCHC 33.7 (32-36) g/dL RDW Std Deviation 45.6 (36.4-46.3) fL RDW Coeff of Tanner 13.1 (11.5-14.5) % Plt Count 127 L (130-400) K/uL MPV 10.8 H (7.4-10.4) fL Immature Gran % (Auto) 0.2 % Neut % (Auto) 52.7 % Lymph % (Auto) 31.7 % Hood % (Auto) 10.5 % Eos % (Auto) 4.5 % Baso % (Auto) 0.4 % Neut # (Auto) 2.36 (1.4-6.5) K/uL Lymph # (Auto) 1.42 (1.2-3.4) K/uL Hood # (Auto) 0.47 (0.11-0.59) K/uL Eos # (Auto) 0.20 (0-0.5) K/uL Baso # (Auto) 0.02 (0-0.2) K/uL Immature Gran # (Auto) 0.01 (0.00-0.02) K/uL Ovalocytes 1+ PT Cancelled INR Cancelled APTT Cancelled PTT Ratio Cancelled Sodium 138 (136-145) mmol/L Potassium (3.5-5.1) mmol/L Chloride 106 (98-107) mmol/L Carbon Dioxide 26 (21-32) mmol/L Anion Gap 6 (3-11) BUN 33 H (6-23) mg/dl Creatinine 1.01 (0.6-1.2) mg/dl Est Cr Clr Drug Dosing 43.3 ml/min Est GFR ( Amer) 67.2 ml/min Est GFR (Non-Af Amer) 58.0 ml/min BUN/Creatinine Ratio 32.7 H (10-20) Glucose 102 H (70-99(Fasting)) mg/dl Calcium 9.9 (8.5-10.1) mg/dl Magnesium (1.7-2.4) mg/dl Total Bilirubin 0.6 (0.2-1.0) mg/dl AST (13-39) U/L ALT 22 (7-52) U/L Alkaline Phosphatase 48 (34-104) U/L Troponin I < 0.03 (0-0.04) ng/ml Total Protein 6.9 (6.0-8.3) gm/dl Albumin 4.4 (3.4-5.0) gm/dl Globulin 2.5 (2.5-4.0) gm/dl Albumin/Globulin Ratio 1.8 (0.9-2) SARS-CoV-2, RNA, NAAT (NEGATIVE) 08/29/21 08/29/21 08/30/21 Range/Units 23:23 23:40 00:42 WBC (4.8-10.8) K/uL RBC (4.2-5.4) M/uL Hgb (12.0-16.0) g/dL Hct (37-47) % MCV (80-100) fL MCH (25-34) pg MCHC (32-36) g/dL RDW Std Deviation (36.4-46.3) fL RDW Coeff of Tanner (11.5-14.5) % Plt Count (130-400) K/uL MPV (7.4-10.4) fL Immature Gran % (Auto) % Neut % (Auto) % Lymph % (Auto) % Hood % (Auto) % Eos % (Auto) % Baso % (Auto) % Neut # (Auto) (1.4-6.5) K/uL Lymph # (Auto) (1.2-3.4) K/uL Hood # (Auto) (0.11-0.59) K/uL Eos # (Auto) (0-0.5) K/uL Baso # (Auto) (0-0.2) K/uL Immature Gran # (Auto) (0.00-0.02) K/uL Ovalocytes PT 10.3 INR 1.0 APTT 28.5 PTT Ratio 1.1 Sodium (136-145) mmol/L Potassium 4.2 (3.5-5.1) mmol/L Chloride (98-107) mmol/L Carbon Dioxide (21-32) mmol/L Anion Gap (3-11) BUN (6-23) mg/dl Creatinine (0.6-1.2) mg/dl Est Cr Clr Drug Dosing ml/min Est GFR ( Amer) ml/min Est GFR (Non-Af Amer) ml/min BUN/Creatinine Ratio (10-20) Glucose (70-99(Fasting)) mg/dl Calcium (8.5-10.1) mg/dl Magnesium 1.8 (1.7-2.4) mg/dl Total Bilirubin (0.2-1.0) mg/dl AST 22 (13-39) U/L ALT (7-52) U/L Alkaline Phosphatase (34-104) U/L Troponin I (0-0.04) ng/ml Total Protein (6.0-8.3) gm/dl Albumin (3.4-5.0) gm/dl Globulin (2.5-4.0) gm/dl Albumin/Globulin Ratio (0.9-2) SARS-CoV-2, RNA, NAAT NEGATIVE (NEGATIVE) Imaging Data Radiologist's Impression: Preliminary Findings Only See Final Report For Complete Findings CTA OTHER - CT ANGIO CHEST W&WO DISSECTION: No aortic aneurysm or dissection. No pulmonary embolus. Dilated left atrium. The lungs are clear. The heart size is within normal limits. No pat hologically enlarged lymph nodes. No fracture. Incidentally noted mild left hydronephrosis. Radiologist:Alma Gannon:[phone] ECG Data Attestation: I personally reviewed and interpreted this ECG as follows: Additional Comments: Sinus bradycardia @[address] elevation Otherwise normal ECG When compared with ECG of 05-NOV-2020 20:38, No significant change was found MDM Narrative Physical exam and history were performed. Nursing notes, EMR, and Medication List were personally reviewed. Patient appears to have left-sided chest pain and left shoulder pain. This is been going on for a few days. Her symptoms certainly could be musculoskeletal, however she states this feels different from her normal shoulder pain. She is with history of cardiac surgery and CAD. IV access was established and labs were obtained. The patient was given aspirin and Nitropaste. She was sent to CT scan for further imaging of her chest. An order was placed for continuous cardiac monitoring. The monitor shows a rate of 47 with sinus bradycardic rhythm. The patient's blood work is as above and was reviewed. She does not have a significantly elevated white blood cell count, gross anemia, bandemia, or significant electrolyte imbalance. Lipase and transaminases are not diagnostic. Troponin x1 is negative. Covid is negative. X-ray of the left shoulder as well as CT scan of the chest were reviewed by myself and radiology. Imaging studies do not reveal distinct etiology of the patient's symptoms On reevaluation the patient is quite comfortable and feels better after treatment here in the ER. I have concern that with the atypical nature of her pain, the pain being different from normal, and that it improved with aspirin and nitro, that she will need additional evaluation. The case was discussed with the on-call hospitalist team who agreed to evaluate the patient here in the ER. Please see their dictation for further patient course, plan, disposition. The chart was completed utilizing Open[employer] Speech Voice Recognition Software. Grammatical errors, random word insertions, pronoun errors, and incomplete sentences are an occasional consequence of this system due to software limitations, ambient noise, and hardware issues. Any formal questions or concerns about the content, text, or information contained within the body of this dictation should be directly addressed to the provider for clarification. . Impression & Plan Left-sided chest pain, Coronary artery disease Discharge Plan Visit Data Chief Complaint: Chest Pain Stated Complaint: CHEST PAIN, PAIN IN LT ARM ED Provider: Roderick Heck ED Midlevel Provider: Donaldo Beyer Discharge Problem: Left-sided chest pain, Coronary artery disease Patient Disposition: Admitted As Inpatient Discharge Instructions Interventions: ED Discharge Assessment Last Done: 08/30/21 03:16
[2021-08-29 23:47] LABS: Alanine Aminotransferase 22 U/L (7-52); Albumin Globulin Ratio 1.8 (0.9-2); Albumin Level 4.4 gm/dl (3.4-5.0); Alkaline Phosphatase 48 U/L (34-104); Anion Gap 6 (3-11); BUN Creatinine Ratio 32.7 (10-20); Bilirubin,Total 0.6 mg/dl (0.2-1.0); Blood Urea Nitrogen 33 mg/dl (6-23); Calcium 9.9 mg/dl (8.5-10.1); Carbon Dioxide 26 mmol/L (21-32); Chloride 106 mmol/L (98-107); Creatinine Clr Calc Pharmacy 43.3 ml/min; Est GFR (African American) 67.2 ml/min; Globulin 2.5 gm/dl (2.5-4.0); Glucose 102 mg/dl (70-99(Fasting)); Sodium 138 mmol/L (136-145); Total Protein 6.9 gm/dl (6.0-8.3)
[2021-08-29 23:48] LABS: Partial Thromboplastin Ratio 1.1; Partial Thromboplastin Time 28.5 Seconds (21.0-31.0); Prothrombin Time 10.3 Seconds (9.0-12.0)
[2021-08-30] MEDS ORDERED: OPTIRAY 320 125ml IV ONE (00:13)
[2021-08-30 01:10] LABS: Potassium 4.2 mmol/L (3.5-5.1)
--- NOTE | 2021-08-30 02:40 | History & Physical Report ---
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 Discomfort is located in her left chest, occurs briefly then resolves. Patient states "it just doesn't feel right." Discomfort is non- exertional, non-pleuritic, non-positional. Patient is active at home and walks appx 1 mile on her treadmill every morning without difficulty - notes no change in exercise tolerance. No SOB, GOMEZ, dizziness, syncope. She does have occasional palpitations. Troponin x 1 is NEGATIVE EKG with SB, normal axis, intervals, waveforms with no acute ischemic changes. Ddx to include musculoskeletal discomfort, ACS, ?symptomatic stenosis from her prosthetic valve. -Observation to medical with telemetry -Trend troponin q 8 hours x 2 sets -Consider Cardiology consultation - ?stress testing - would want to discuss with Cardiology prior to stress testing - patient with severe, , ?if symptomatic (2) Coronary artery disease: Plan: As above. Patient with known CAD, chest pain. -EKG with chest pain -Nitro PRN -Continue ASA, Rosuvastatin and Lisinopril -Assuming no beta rio due to resting bradycardia (3) Hypertension: Plan: Blood pressure well controlled at present, 131/79 -Continue Lisinopril 30mg daily (4) Aortic valve replaced: Plan: Patient is s/p 21mm bioprosthetic aortic valve replacement performed in 2011 at [facility] [place]. She has moderated to severe prosthetic valve stenosis. She follows locally with Dr. Neri and has routine echocardiogram's performed. Presently with no evidence of CHF Last echo 04/17/21 viewed in [facility] system with EF of 65%, normal LV size, grade II diastolic dysfunction. Severe prosthetic stenosis with LVOT/AV of 0.25, ИРИНА of 0.7cm2, trace to mild paravalvular prosthesis insufficiency. Findings stable from prior echo 10/10/20. -Continue Lisinopril -Repeat echo -Consider Cardiology consultation pending results (5) Hydronephrosis: Plan: Incidentally noted on CT. Patient denies urinary complaints or flank pain -Check renal US History of Present Illness Chief Complaint: chest pain Primary Care Provider: SILKE Martínez Destinee Page is a pleasant 65yo female with history of CAD s/p angioplasty, s/p CABG x 2 vessel, s/p bioprosthetic aortic valve with stenosis presenting with left sided chest discomfort. Patient has history of left shoulder injury - has frequent discomfort in her left shoulder. However, states that over the las t 2-3 days she has had some chest discomfort, states that "it just doesn't feel right". Sensation is difficult to describe for her. States that it is self limiting, not associated with SOB, palpitations, nausea, dizziness. Sensation is non-exertional, non-pleuritic, non-positional. Is most noticed in the evenings. She denies new activity that may have aggravated her shoulder. She is active - walks 1mile on her treadmill every morning and does not notice a decrease in exercise tolerance. No exertional chest pain or dyspnea. Patient follows with Dr. Neri of Cardiology. Denies fever, chills, cough, SOB, abdominal pain, nausea, vomiting, diarrhea or constipation. ER Course: Nitro patch, ASA Allergies Allergy/AdvReac Type Severity Reaction Status Date / Time clonidine AdvReac Unknown CAN'T Verified 08/29/21 23:28 REMEMBER colestipol AdvReac Unknown CAN'T Verified 08/29/21 23:28 REMEMBER Home Medications Medication Instructions Recorded Confirmed Type lisinopril 30 mg tablet 30 mg PO DAILY 11/05/20 08/29/21 History rosuvastatin 40 mg tablet 40 mg PO DAILY 11/05/20 08/29/21 History aspirin 81 mg tablet,delayed 81 mg PO DAILY 08/29/21 08/29/21 History release cholecalciferol (vitamin D3) 50 50 mcg PO DAILY 08/29/21 08/29/21 History mcg (2,000 unit) capsule (Vitamin D3) coenzyme Q10 100 mg capsule 100 mg PO DAILY 08/29/21 08/29/21 History (CoQ-10) omega 6-lbx-add-fish oil 1,000 mg 1 cap PO BID 08/29/21 08/29/21 History (120 mg-180 mg) capsule (Fish Oil) Past Med/Surg History Medical History Aortic valve replaced Bioprosthetic aortic valve 2011 Coronary artery disease s/p CABG x 2v Hypertension Surgical History History of coronary artery bypass graft x 2 MORIN to LAD and SVG to RCA S/P appendectomy S/P laparoscopic cholecystectomy (11/01/20) Laparoscopic Cholecystectomy - Jeff Sharma DO 11/01/20 Social History Smoking Status: Former smoker Smoking End Date: 35 years ago; Hx Alcohol Use: No Hx Substance Use: No Preferred Language: Malay Communication Ability: Effective Button Cutter Required: No Beliefs That Will Affect Care: None Current Living Situation: Spouse Other Information That Helps Us Care for You: No Feels Safe at Home: Yes Safety Concerns: Feels Safe At This Time Assistive Devices: Denture - Upper and Glasses Review of Systems Review of Systems: All systems reviewed & are unremarkable except as noted in HPI & below Physical Exam Physical Exam: General: patient resting comfortably, NAD, non-toxic in appearance, AA&O x 4 Skin: warm, dry, intact, no rashes or lesions HEENT: NC/AT, PERRL, EOMI, anicteric sclera, conjunctiva without injection, external ear normal to inspection and nontender, nares patent, moist mucus membranes, dentition intact, no oropharyngeal lesions, neck supple, trachea midline, no LAD, no thyromegaly, no JVD Heart: +S1/S2, regular, bradycardic, 4/6 MELLISA across precordium with radiation to carotids, systolic click Lungs: equal air entry bilaterally, no rales/rhonchi/wheezes Abd: +BS, soft, NT/ND, no masses/organomegaly/ascites Ext: warm, 2+ pulses in UE/LE bilaterally, no clubbing/cyanosis or edema Neuro: nonfocal, patient AA&O x 4, speech intact, no facial droop, moving all extremities on command with equal strength 5/5 Results & Data Results & Data ([facility]) Vital Signs (Past 12 Hours) Vital Signs Temp Pulse Pulse Resp BP BP Pulse Ox 08/30/21 01:01 47 L 14 131/79 98 08/30/21 00:44 48 L 16 156/56 H 99 08/29/21 23:31 52 L 19 151/61 H 100 08/29/21 23:05 55 L 17 163/75 H 99 08/29/21 21:38 36.4 C L 104 H 16 191/79 H 100 Laboratory Results Laboratory Results WBC 4.48 K/uL (4.8-10.8) L 08/29/21: RBC 4.05 M/uL (4.2-5.4) L 08/29/21: Hgb 12.9 g/dL (12.0-16.0) 08/29/21: Hct 38.3 % (37-47) 08/29/21: MCV 94.6 fL (80-100) 08/29/21: MCH 31.9 pg (25-34) 08/29/21: MCHC 33.7 g/dL (32-36) 08/29/21: RDW Std Deviation 45.6 fL (36.4-46.3) 08/29/21: RDW Coeff of Tanner 13.1 % (11.5-14.5) 08/29/21: Plt Count 127 K/uL (130-400) L 08/29/21: MPV 10.8 fL (7.4-10.4) H 08/29/21: Immature Gran % (Auto) 0.2 % 08/29/21: Neut % (Auto) 52.7 % 08/29/21: Lymph % (Auto) 31.7 % 08/29/21: Cooper % (Auto) 10.5 % 08/29/21: Eos % (Auto) 4.5 % 08/29/21: Baso % (Auto) 0.4 % 08/29/21: Neut # (Auto) 2.36 K/uL (1.4-6.5) 08/29/21: Lymph # (Auto) 1.42 K/uL (1.2-3.4) 08/29/21: Cooper # (Auto) 0.47 K/uL (0.11-0.59) 08/29/21: Eos # (Auto) 0.20 K/uL (0-0.5) 08/29/21 22:29 Baso # (Auto) 0.02 K/uL (0-0.2) 08/29/21 22: Immature Gran # (Auto) 0.01 K/uL (0.00-0.02) 08/29/21 22:29 Ovalocytes 1+ 08/29/21 22: PT 10.3 Seconds (9.0-12.0) 08/29/21 23: INR 1.0 (0.9-1.1) 08/29/21 23: APTT 28.5 Seconds (21.0-31.0) 08/29/21 23: PTT Ratio 1.1 08/29/21 23: Sodium 138 mmol/L (136-145) 08/29/21: Potassium 4.2 mmol/L (3.5-5.1) 08/30/21 00:42 Chloride 106 mmol/L (98-107) 08/29/21: Carbon Dioxide 26 mmol/L (21-32) 08/29/21: Anion Gap 6 (3-11) 08/29/21 22:29 BUN 33 mg/dl (6-23) H 08/29/21 22: Creatinine 1.01 mg/dl (0.6-1.2) 08/29/21: Est Cr Clr Drug Dosing 43.3 ml/min 08/29/21 22:29 Est GFR ( Amer) 67.2 ml/min 08/29/21 22: Est GFR (Non-Af Amer) 58.0 ml/min 08/29/21 22: BUN/Creatinine Ratio 32.7 (10-20) H 08/29/21 22: Glucose 102 mg/dl (70-99(Fasting)) H 08/29/21: Calcium 9.9 mg/dl (8.5-10.1) 08/29/21 22: Total Bilirubin 0.6 mg/dl (0.2-1.0) 08/29/21 22:29 AST 22 U/L (13-39) 08/30/21 00:42 ALT 22 U/L (7-52) 08/29/21 22:29 Alkaline Phosphatase 48 U/L (34-104) 08/29/21 22:29 Troponin I < 0.03 ng/ml (0-0.04) 08/29/21 22:29 Total Protein 6.9 gm/dl (6.0-8.3) 08/29/21 22:29 Albumin 4.4 gm/dl (3.4-5.0) 08/29/21 22:29 Globulin 2.5 gm/dl (2.5-4.0) 08/29/21 22:29 Albumin/Globulin Ratio 1.8 (0.9-2) 08/29/21 22:29 SARS-CoV-2, RNA, NAAT NEGATIVE (NEGATIVE) 08/29/21 23:40 Diagnostic Findings CTA Chest - per STAT rad: No aortic aneurysm or dissection. No pulmonary embolus. Dilated left atrium. The lungs are clear. The heart size is within normal limits. No pathologically enlarged lymph nodes. No fracture. Incidentally noted mild left hydronephrosis. ECG Additional Comments: EKG with sinus bradycardia. No ischemic changes PG Care Time/CCT Total # of Minutes Spent Total Time Spent with Patient: Total time spent is greater than 50% in coordination of care (as documented) at patient's floor/unit and/or counseling patient: Coding Level of Care Code INT OBSERVATION CARE 50M LVL 2 Diagnoses Coronary artery disease I25.10 Hypertension I10 Aortic valve replaced Z95.2 Chest pain R07.9 Hydronephrosis N13.30
[2021-08-30] MEDS ORDERED: ONDANSETRON INJ 2 MG/ML 2 ML VIAL IV PRN (03:15)
[2021-08-30] MEDS ORDERED: NITROGLYCERIN SL 0.4 MG/TAB TAB SL PRN (03:15)
[2021-08-30] MEDS ORDERED: ACETAMINOPHEN 325 MG TAB PO PRN (03:15)
[2021-08-30 03:52] LABS: Magnesium 1.8 mg/dl (1.7-2.4)
--- NOTE | 2021-08-30 07:07 | XRay Report ---
XR shoulder LT min 2V routine CLINICAL HISTORY: left shoulder pain. COMPARISON STUDY: No previous studies for comparison. TECHNIQUE: 3 left shoulder views FINDINGS: Bones: There is no evidence for an acute fracture or dislocation. A sharply defined cyst is present w ithin the humeral head with a sclerotic margin consistent with a benign process. There is no lytic or blastic lesion. Joints: The glenohumeral joint space is maintained. Mild degenerative changes are seen at the AC join t. The bones are in anatomic alignment. Soft tissues: There is no focal soft tissue abnormality. There is no radiopaque foreign body. IMPRESSION: No acute osseous pathology. Mild degenerative changes at the AC joint. ACT 112: Negative or not required by law. Electronically signed by: Dion Cabrera M.D. 08/30/2021 7:06 AM
--- NOTE | 2021-08-30 07:22 | CT Scan Report ---
CT angio chest dissec wo/w con CLINICAL HISTORY: chest pain radiating into the left shoulder. Reported history of aorta repair . COMPARISON STUDY: 11/05/2020 CT DOSE: 485.23 mGy.cm TECHNIQUE: CT Angio of the chest was performed.followed by image post processing with coronal, and s agittal MIP reformats. Contrast Volume: Optiray 320, 120 ml FINDINGS: Vasculature: Compared to the previous study, the patient is status post aortic valve surgery. The aor ta is otherwise normal in course and caliber. There is no evidence for aneurysm, dissection or leakag e. There is prominent atherosclerotic calcification present. There is homogeneous perfusion of the pu lmonary vasculature bilaterally. No intraluminal filling defects or evidence for pulmonary embolus is seen. Airway: The airway is clear. No endobronchial lesion is identified. Lungs: The lungs are clear of acute alveolar opacities, air bronchograms or pulmonary nodules. Pleura: There is no evidence for pleural effusion. There is no evidence for pneumothorax. Mediastinum: There is no evidence for pathologic adenopathy. There is previous sternotomy for the aor tic valve repair. Heart size is mildly enlarged with enlargement of the right atrium. Mild atheroscle rotic calcification is present. There is no evidence for pericardial effusion. Upper abdomen:The adrenal glands are normal bilaterally. There is asymmetric elevation of the left he midiaphragm. Osseous structures: There is no acute osseous pathology. Degenerative changes are seen within the th oracic spine. Impression: 1. Status post aortic valve repair with no evidence for aortic aneurysm, dissection or leakage. 2. Normal CTA of the urinary arteries. 3. No acute chest disease. 4. Mild cardiomegaly with left atrial enlargement. 5. Coronary artery calcification. ACT 112: Negative or not required by law. Electronically signed by: Dion Cabrera M.D. 08/30/2021 7:20 AM
[2021-08-30] MEDS ORDERED: lisinopril 10 MG TAB PO SCH (09:00)
[2021-08-30] MEDS ORDERED: ASPIRIN 81 MG ECTAB PO SCH (09:00)
[2021-08-30] MEDS ORDERED: ROSUVASTATIN CALCIUM 20 MG TAB PO SCH (09:00)
--- NOTE | 2021-08-30 09:17 | Ultrasound Report ---
RENAL ULTRASOUND CLINICAL HISTORY: hydronephrosis COMPARISON STUDY: CT of the abdomen and pelvis November 05, 2020. TECHNIQUE: Sonography of the kidneys and the urinary bladder was performed. FINDINGS: Right kidney measures 8.5 cm in maximal dimension and the left measures 8.8 cm. There is no right hydronephrosis. Note is made of tubular anechoic structures within the left renal sinus. When correlating with abdominal CT of November 05, 2020, these favor parapelvic cysts. No renal calculi or ma sses are identified. Ureteral jets were not visualized. IMPRESSION: Tubular anechoic structures within the left renal sinus. When correlating with prior abdo helio CT, these likely reflect parapelvic cysts. No definite hydronephrosis. ACT 112: Negative or not required by law. Electronically signed by: Gordon Monae M.D. 08/30/2021 9:16 AM
--- NOTE | 2021-08-30 10:05 | Medical Student Progress Note ---
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 1. Chest/Shoulder Pain - negative troponins x3 - EKG with SB, normal axis, intervals, waveforms with no acute ischemic changes. - echo pending? 2. Coronary artery disease s/p CABG x 2: - EKG with chest pain - Nitro PRN - Continue home aspirin, Rosuvastatin and Lisinopril 3. Hypertension: - Blood pressure well controlled at present, 131/79 - Continue Lisinopril 30mg daily 4. Aortic valve replaced: Patient is s/p 21mm bioprosthetic aortic valve replacement performed in 2011 at [facility] [place]. 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 She follows locally with Dr. Neri and has routine echocardiogram's performed. Presently with no evidence of CHF Last echo 04/17/21 viewed in [facility] system with EF of 65%, normal LV size, grade II diastolic dysfunction. Severe prosthetic stenosis with LVOT/AV of 0.25, ИРИНА of 0.7cm2, trace to mild paravalvular prosthesis insufficiency. Findings stable from prior echo 10/10/20. -Continue Lisinopril -Repeat echo -Consider Cardiology consultation pending results 5. Hydronephrosis: - Incidentally CT finding Patient denies urinary complaints or flank pain - Check renal US (2) Aortic valve replaced: (3) Hypertension: Admission and Anticipated Discharge Date Admission Date: August 30, 2021 Physical Exam Musculoskeletal: full abduction and forward flexion in both shoulders with no pain, no tenderness to palpation of shoulder joint. Chest/shoulder pain not reproducible with palpation. Results & Data ([facility]) Vital Signs (Past 12 Hours) Vital Signs Pulse Pulse Resp BP BP Pulse Ox 08/30/21 08:55 68 16 125/93 98 08/30/21 06:00 45 L 12 144/79 H 98 08/30/21 04:00 47 L 16 123/50 L 97 08/30/21 02:30 47 L 14 146/44 H 08/30/21 01:01 47 L 14 131/79 98 08/30/21 00:44 48 L 16 156/56 H 99 08/29/21 23:31 52 L 19 151/61 H 100 08/29/21 23:05 55 L 17 163/75 H 99
--- NOTE | 2021-08-30 15:24 | XCELERA ---
[id number]
--- NOTE | 2021-08-30 15:30 | Med Student Discharge Summary ---
Date of Service August 30, 2021 Admission HPI Per Admitting Provider Destinee Page is a pleasant 65yo female with history of CAD s/p angioplasty, s/p CABG x 2 vessel, s/p bioprosthetic aortic valve with stenosis presenting with left sided chest discomfort. Patient has history of left shoulder injury - has frequent discomfort in her left shoulder. However, states that over the last 2-3 days she has had some chest discomfort, states that "it just doesn't feel right". Sensation is difficult to describe for her. States that it is self limiting, not associated with SOB, palpitations, nausea, dizziness. Sensation is non-exertional, non-pleuritic, non-positional. Is most noticed in the evenings. She denies new activity that may have aggravated her shoulder. She is active - walks 1mile on her treadmill every morning and does not notice a decrease in exercise tolerance. No exertional chest pain or dyspnea. Patient follows with Dr. Neri of Cardiology. Denies fever, chills, cough, SOB, abdominal pain, nausea, vomiting, diarrhea or constipation. ER Course: Nitro patch, ASA Admission Exam (Per Admitting) Constitutional WD/WN, vitals as above Eyes PERRL, conjunctivae normal, anicteric sclerae Neck trachea midline, no thyromegaly Respiratory normal respiratory effort, lungs clear to auscultation Cardiovascular Extremities: no edema Gastrointestinal (Abdomen) normal bowel sounds, soft, nontender, no hepatosplenomegaly Constitutional WD/WN, vitals as above Eyes PERRL, conjunctivae normal, anicteric sclerae Neck trachea midline, no thyromegaly Respiratory normal respiratory effort, lungs clear to auscultation Cardiovascular Extremities: no edema RRR, no S3 or S4, 5/6 systolic murmur with midsystolic click best heard at the RUSB that radiates to the carotids Gastrointestinal (Abdomen) normal bowel sounds, soft, nontender, no hepatosplenomegaly Musculoskeletal no tenderness to palpation along left shoulder joint, pain with passive abduction of left shoulder Skin warm, dry, well-perfused, no rash Discharge Data Consultations 08/30/21 01:57 ED Decision to Admit Stat Hospital Course (1) Left-sided chest pain: Destinee is a 65 year old female with a history of CAD s/p CABG x 2, aortic valve replacement with 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 She initially received aspirin and nitro, after which her pain resolved. She had no pain for the remainder of her stay here. To rule out cardiac causes of her pain, she had an EKG which showed sinus bradycardia but was otherwise normal. She had 3 serial troponins, all of which were negative. Her chest CTA was unremarkable. TTE showed an EF of 60-65% with a severely dilated left atrium and moderate to severe stenosis of her bioprosthetic aortic valve. Compared to her March 2021 TTE in the [facility] EMR, there are no changes. Her shoulder x-ray showed degenerative joint changes but no acute pathology. In addition, her history and exam suggested that her pain was most likely musculoskeletal. Also of note, a previous CT showed an incidental finding suggestive of hydronephrosis. Destinee did not have urinary complaints or back p ain, but a renal ultrasound was obtained and showed what appear to be parapelvic cysts with no hydronephrosis. Destinee has an appointment with Dr. Neri on 10/17, with whom she can discuss this visit and today's echo. (2) Aortic valve replaced: (3) Hypertension: Discharge Plan Discharge Items Patient Disposition: Home - Self-Care Reason For Visit: CHEST PAIN Discharge Diagnosis: Chest pain - musculoskeletal Activity: Resume your previous activity Non-emergency contact: Primary Care Provider Call non-emergency contact if: you have any medication questions, your symptoms worsen and your pain is not controlled Follow-up/Referrals: Destinee Núñez CRNP [Primary Care Provider] - Diet: Heart Healthy Add Attending Provider Instructions: You were kept in the hospital for left sided chest and shoulder pain. Your tests for concern of angina or heart attack came back all negative. Your shoulder and chest pain is likely secondary to the left shoulder joint arthritis/rotator cuff tendinitis. You should follow up with your family physician to get that evaluated. In the meantime, you can take tylenol over the counter to help control the shoulder pain. No medication changes have been made Your Echocardiogram reading is pending at the time of discharge. You should follow up on the report at the family physician office visit. Pending Studies at Discharge: Yes Studies:: Echocardiogram Stand-Alone Forms: My [facility] Endgame, Smoking Cessation Medications and DC Order Prescriptions: Continued lisinopril 30 mg tablet 30 mg PO DAILY RF: 0 rosuvastatin 40 mg tablet 40 mg PO DAILY RF: 0 aspirin 81 mg Tablet,Delayed Release (Dr/Ec) 81 mg PO DAILY RF: 0 coenzyme Q10 [CoQ-10] 100 mg Capsule 100 mg PO DAILY RF: 0 cholecalciferol (vitamin D3) [Vitamin D3] 50 mcg (2,000 unit) Capsule 50 mcg PO DAILY RF: 0 omega 0-sdl-snk-fish oil [Fish Oil] 1,000 mg (120 mg-180 mg) Capsule 1 cap PO BID RF: 0 Discharge Orders: Discharge Order (Routine); Ordered 08/30/21 Ordered By: Dalia Berkowitz Admission Data Admit Date/Time: 08/30/21 02:31 Attending Provider: Dalia Berkowitz Admit Provider: Alona Cervantes Primary Care Provider: Destinee Núñez Other Providers: Sarabjit Neri ; Alona Cervantes Other Interventions: Discharge Summary Assessment (RN) Last Done: 08/30/21 15:58 Supervising Attestation Medical Student Supervision Note: I was personally present during medical student patient encounter and independently interviewed and examined the patient and verified the alanis history and physical, reviewed labs and image studies, discussed the case with Oli Fletcher and agree with the findings and care plan. Presented with left sided shoulder and chest pain - No pain since after admission but pain reproduced during shoulder exam. ruled out for ACS. echo unchanged. To follow up with PCP for further evalution of shoulder pain. Already has cardio routine f/u set up for her CAD and
--- NOTE | 2021-08-30 15:47 | Med Student Discharge Summary ---
Date of Service August 30, 2021 Admission HPI Per Admitting Provider Destinee Page is a pleasant 65yo female with history of CAD s/p angioplasty, s/p CABG x 2 vessel, s/p bioprosthetic aortic valve with stenosis presenting with left sided chest discomfort. Patient has history of left shoulder injury - has frequent discomfort in her left shoulder. However, states that over the last 2-3 days she has had some chest discomfort, states that "it just doesn't feel right". Sensation is difficult to describe for her. States that it is self limiting, not associated with SOB, palpitations, nausea, dizziness. Sensation is non-exertional, non-pleuritic, non-positional. Is most noticed in the evenings. She denies new activity that may have aggravated her shoulder. She is active - walks 1mile on her treadmill every morning and does not notice a decrease in exercise tolerance. No exertional chest pain or dyspnea. Patient follows with Dr. Neri of Cardiology. Denies fever, chills, cough, SOB, abdominal pain, nausea, vomiting, diarrhea or constipation. 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 She initially received aspirin and nitro, after which her pain resolved. She had no pain for the remainder of her stay here. To rule out cardiac causes of her pain, she had an EKG which showed sinus bradycardia but was otherwise normal. She had 3 serial troponins, all of which were negative. In addition, her history and exam suggested that her pain was most likely musculoskeletal. Also of note, a previous CT showed an incidental finding suggestive of hydronephrosis. Destinee did not have urinary complaints or back pain, but a renal ultrasound was obtained and showed . Destinee is scheduled to see Dr. Neri on 10/17. Last echo 04/17/21 viewed in [facility] system with EF of 65%, normal LV size, grade II diastolic dysfunction. Severe prosthetic stenosis with LVOT/AV of 0.25, ИРИНА of 0.7cm2, trace to mild paravalvular prosthesis insufficiency. Findings stable from prior echo 10/10/20. -Continue Lisinopril -Repeat echo -Consider Cardiology consultation pending results (2) Aortic valve replaced: (3) Hypertension: Discharge Plan Discharge Items Patient Disposition: Home - Self-Care Reason For Visit: CHEST PAIN Discharge Diagnosis: Chest pain - musculoskeletal Activity: Resume your previous activity Non-emergency contact: Primary Care Provider Call non-emergency contact if: you have any medication questions, your symptoms worsen and your pain is not controlled Follow-up/Referrals: Destinee Núñez CRNP [Primary Care Provider] - Diet: Heart Healthy Addtl Attending Provider Instructions: You were kept in the hospital for left sided chest and shoulder pain. Your tests for concern of angina or heart attack came back all negative. Your shoulder and chest pain is likely secondary to the left shoulder joint arthritis/rotator cuff tendinitis. You should follow up with your family physician to get that evaluated. In the meantime, you can take tylenol over the counter to help control the shoulder pain. No medication changes have been made Your Echocardiogram reading is pending at the time of discharge. You should follow up on the report at the family physician office visit. Pending Studies at Discharge: Yes Studies:: Echocardiogram Stand-Alone Forms: My [facility], Smoking Cessation Medications and DC Order Prescriptions: Continued lisinopril 30 mg tablet 30 mg PO DAILY RF: 0 rosuvastatin 40 mg tablet 40 mg PO DAILY RF: 0 aspirin 81 mg Tablet,Delayed Release (Dr/Ec) 81 mg PO DAILY RF: 0 coenzyme Q10 [CoQ-10] 100 mg Capsule 100 mg PO DAILY RF: 0 cholecalciferol (vitamin D3) [Vitamin D3] 50 mcg (2,000 unit) Capsule 50 mcg PO DAILY RF: 0 omega 2-ihw-gxm-fish oil [Fish Oil] 1,000 mg (120 mg-180 mg) Capsule 1 cap PO BID RF: 0 Discharge Orders: Discharge Order (Routine); Ordered 08/30/21 Ordered By: Dalia Berkowitz Admission Data Admit Date/Time: 08/30/21 02:31 Attending Provider: Dalia Berkowitz Admit Provider: Alona Cervantes Primary Care Provider: Destinee Núñez. Other Providers: Sarabjit Neri ; Alona Cervantes
--- NOTE | 2021-08-31 06:17 | Electrocardiogram Report ---
Test Reason : Blood Pressure : / mmHG Vent. Rate : 059 BPM Atrial Rate : 059 BPM P-R Int : 180 ms QRS Dur : 088 ms QT Int : 432 ms P-R-T Axes : 076 035 052 degrees QTc Int : 427 ms Sinus bradycardia Otherwise normal ECG When compared with ECG of 05-NOV-2020 20:38, Lateral ST/T wave abnormality has improved Confirmed by Dov Weinberg ([id number]) on 08/31/2021 6:16:20 AM Referred By: REFERRED SELF Confirmed By:Dov Weinberg
== END 2021-08-30 15:58 | disposition home or self-care (01) ==
LOC: ED 21:33 → EDINP 21:33 → SUATTDRO 08-30 02:31 → EDINP 08-30 03:16

== ENCOUNTER 2022-12-28 05:45 | Inpatient (IN) ==
[2022-12-28] MEDS ORDERED: ASPIRIN CHEW 324 MG ONE (06:09)
[2022-12-28] MEDS ORDERED: fentaNYL citrate PF 100 MCG/2 ML VIAL ONE (06:10)
--- NOTE | 2022-12-28 06:11 | Emergency Department Note ---
History of Present Illness General Chief complaint: Chest Pain Stated complaint: CHEST PAIN, HEART PALPITATION Time Seen by Provider: 12/28/22 06:02 History of Present Illness Maximum Pain Intensity: 3 67-year-old female presents emergency department onset of palpitations and chest pressure that was rated 10 out of 10 at 5:15 AM this morning. Patient states that the pain is decreased she felt palpitations she had some mild shortness of breath there is no radiation of the pain; patient denies nausea vomiting diaphoresis. There are no other mitigating or alleviating factors. Patient did not take any medicine prior to arrival. Home Medications Medication Instructions Recorded Confirmed Type lisinopril 30 mg tablet 30 mg PO DAILY 11/05/20 08/29/21 History rosuvastatin 40 mg tablet 40 mg PO DAILY 11/05/20 08/29/21 History aspirin 81 mg tablet,delayed 81 mg PO DAILY 08/29/21 08/29/21 History release cholecalciferol (vitamin D3) 50 50 mcg PO DAILY 08/29/21 08/29/21 History mcg (2,000 unit) capsule (Vitamin D3) coenzyme Q10 100 mg capsule 100 mg PO DAILY 08/29/21 08/29/21 History (CoQ-10) omega 9-hiu-qdd-fish oil 1,000 mg 1 cap PO BID 08/29/21 08/29/21 History (120 mg-180 mg) capsule (Fish Oil) Allergies Allergy/AdvReac Type Severity Reaction Status Date / Time clonidine AdvReac Unknown CAN'T Verified 08/29/21 23:28 REMEMBER colestipol AdvReac Unknown CAN'T Verified 08/29/21 23:28 REMEMBER Past Med/Surg History Medical History Aortic valve replaced Bioprosthetic aortic valve 2011 Coronary artery disease s/p CABG x 2v Encounter for pre-operative examination Hypertension Surgical History History of coronary artery bypass graft x 2 MORIN to LAD and SVG to RCA S/P appendectomy S/P laparoscopic cholecystectomy (11/01/20) Laparoscopic Cholecystectomy - Jeff Sharma DO 11/01/20 Social History Smoking Status: Never smoker Do You Dip or Chew Tobacco: No; Hx Alcohol Use: No Hx Substance Use: No Preferred Language: Yoruba Communication Ability: Effective Senior Insight Manager Required: No Beliefs That Will Affect Care: None Current Living Situation: Spouse Feels Safe at Home: Yes Assistive Devices: Glasses Review of Systems A total of 10 systems reviewed and were otherwise negative Respiratory: no cough Cardiovascular: + chest pain Gastrointestinal: no abdominal pain Physical Exam Vital Signs Vital Signs - 24 hr 12/28/22 05:49 12/28/22 06:03 12/28/22 06:13 Temperature 36.5 C Temperature Source Temporal Artery Scan Pulse Rate 74 109 H Pulse Rate [Right Finger] 111 H Pulse Rate from SpO2 Sensor Pulse Rhythm [Right Finger] Regular Pulse Strength [Right Finger] Normal Respiratory Rate 18 18 Respiratory Effort / Characteristics Non-Labored Spontaneous Non-Labored Respiratory Depth Normal Normal Respiratory Pattern Regular Blood Pressure 125/73 Blood Pressure [Right Arm] 114/70 Blood Pressure Mean 90 Blood Pressure Mean [Right Arm] 84 Blood Pressure Position [Right Arm] Sitting Pulse Oximetry 97 94 Oxygen Delivery Method Room Air Room Air Sepsis Recent Fever Within 48 Hours No Sepsis New/Unexplained Change in Mental Status No Sepsis Action Taken by Nursing No Action Required 12/28/22 06:16 12/28/22 06:09 12/28/22 06:13 Temperature Temperature Source Pulse Rate 103 H 101 H 93 H Pulse Rate [Right Finger] Pulse Rate from SpO2 Sensor 98 H Pulse Rhythm [Right Finger] Pulse Strength [Right Finger] Respiratory Rate 18 21 15 Respiratory Effort / Characteristics Respiratory Depth Respiratory Pattern Blood Pressure 137/64 114/70 Blood Pressure [Right Arm] Blood Pressure Mean 88 84 Blood Pressure Mean [Right Arm] Blood Pressure Position [Right Arm] Pulse Oximetry 92 92 Oxygen Delivery Method Room Air Sepsis Recent Fever Within 48 Hours Sepsis New/Unexplained Change in Mental Status Sepsis Action Taken by Nursing 12/28/22 06:20 12/28/22 06:30 12/28/22 06:40 Temperature Temperature Source Pulse Rate 86 89 76 Pulse Rate [Right Finger] Pulse Rate from SpO2 Sensor 85 91 H 82 Pulse Rhythm [Right Finger] Pulse Strength [Right Finger] Respiratory Rate 25 H 16 18 Respiratory Effort / Characteristics Respiratory Depth Respiratory Pattern Blood Pressure 98/51 L 107/44 L Blood Pressure [Right Arm] Blood Pressure Mean 66 65 Blood Pressure Mean [Right Arm] Blood Pressure Position [Right Arm] Pulse Oximetry 89 L 88 L 95 Oxygen Delivery Method Sepsis Recent Fever Within 48 Hours Sepsis New/Unexplained Change in Mental Status Sepsis Action Taken by Nursing 12/28/22 06:40 Temperature Temperature Source Pulse Rate Pulse Rate [Right Finger] Pulse Rate from SpO2 Sensor Pulse Rhythm [Right Finger] Pulse Strength [Right Finger] Respiratory Rate Respiratory Effort / Characteristics Respiratory Depth Respiratory Pattern Blood Pressure 100/50 L Blood Pressure [Right Arm] Blood Pressure Mean 60 Blood Pressure Mean [Right Arm] Blood Pressure Position [Right Arm] Pulse Oximetry Oxygen Delivery Method Sepsis Recent Fever Within 48 Hours Sepsis New/Unexplained Change in Mental Status Sepsis Action Taken by Nursing GENERAL: Patient is awake alert in no acute distress patient is resting comfortably and showing no signs of anxiety EYES: The conjunctivae are clear. The pupils are round and reactive. EARS, NOSE, MOUTH AND THROAT: The nose is without any evidence of any deformity. Mucous membranes are moist. Tongue is midline. NECK: The neck is nontender and supple. RESPIRATORY: Normal respiratory effort is noted there is no evidence of wheezing rhonchi or rales CARDIOVASCULAR: Regular rate and rhythm noted there no murmurs rubs or gallops normal S1 normal S2. GASTROINTESTINAL: The abdomen is soft. Abdomen is nontender. BACK: Full range of motion MUSCULOSKELETAL/EXTREMITIES: There is no evidence of gross deformity full range of motion is noted in the hips and shoulders. SKIN: There is no obvious evidence of any rash. There are no petechiae, pallor or cyanosis noted. NEUROLOGIC: Patient is awake alert and oriented x3 strength is symmetric Course Reevaluation(s) Reevaluation #1: Patient was given aspirin, fentanyl, oxygen, IV fluids Time: 06:30 Reevaluation #2: Patient is resting with decreased chest pain; she was started on IV fluids her blood pressure is 90 her heart rate was 102 Consultations Consultation #1: The [facility] hospitalist was notified of the admission through [place] text. Time: 06:22 Consultation #2: Case was discussed with Dr. Silva from cardiology at bedside and we also looked at prior EKGs from 2020 and 2021 Time: 06:43 Administered Medications Sodium Chloride (Nss 1000ml) 1,000 mls @ 125 mls/hr IV .Q8H ONE Stop: 12/28/22 14:34 Last Admin: 12/28/22 06:43 Dose: 125 mls/hr Documented By: CAITLIN Discontinued Medications Aspirin (Aspirin Chew 324 Mg) Confirm Administered Dose 324 mg .ROUTE .STK-MED ONE Stop: 12/28/22 06:10 Last Admin: 12/28/22 06:12 Dose: 324 mg Documented By: BAILEE Aspirin (Aspirin Chew 324 Mg) 324 mg PO NOW STA Stop: 12/28/22 06:35 Last Admin: 12/28/22 06:43 Dose: Not Given Documented By: CAITLIN Fentanyl Citrate (Fentanyl Citrate Pf 100 Mcg/2 Ml Vial) Confirm Administered Dose 100 mcg .ROUTE .STK-MED ONE Stop: 12/28/22 06:11 Last Admin: 12/28/22 06:12 Dose: 50 mcg Documented By: BAILEE Fentanyl Citrate (Fentanyl Citrate Pf 100 Mcg/2 Ml Vial) 50 mcg IV NOW STA Stop: 12/28/22 06:35 Last Admin: 12/28/22 06:43 Dose: Not Given Documented By: CAITLIN Critical Care Time Critical Care Time: Yes Total Critical Care Time: 35 I have personally spent greater than 35 minutes of critical care time in the direct management of this patient. This includes bedside care, interpretation of diagnostic studies, and testing, discussion with consultants, patient, and family members, and other required patient management activities. These minutes are in excess of all separately billable procedures. Medical Decision Making Medical Records Attestation: I reviewed the patient's medical records. Home Medications Current Medication List: was personally reviewed by me Laboratory Data Attestation: I reviewed the patient's lab results. 12/28/22 06:09 12/28/22 06:09 Lab Results 12/28/22 12/28/22 12/28/22 Range/Units 06:09 06:09 06:09 WBC 6.16 (4.8-10.8) K/ul RBC 4.14 L (4.20-5.40) M/uL Hgb 13.2 (12.0-16.0) g/dl POC Hgb (12.0-16.0) g/dl Hct 38.5 (37.0-47.0) % POC Hct (37-47) % MCV 93.0 (80.0-100.0) fL MCH 31.9 (25.0-34.0) pg MCHC 34.3 (32.0-36.0) g/dL RDW Std Deviation 43.8 (36.4-46.3) fL RDW Coeff of Tanner 12.7 (11.5-14.5) % Plt Count 141 (130-400) K/uL MPV 10.5 (9.4-12.4) fL Immature Gran % (Auto) 0.3 % Neut % (Auto) 51.9 % Lymph % (Auto) 37.5 % [place] % (Auto) 6.7 % Eos % (Auto) 3.1 % Baso % (Auto) 0.5 % Neut # (Auto) 3.20 (1.40-6.50) K/uL Lymph # (Auto) 2.31 (1.2-3.4) K/uL [place] # (Auto) 0.41 (0.11-0.59) K/uL Eos # (Auto) 0.19 (0-0.50) K/uL Baso # (Auto) 0.03 (0-0.2) K/uL Immature Gran # (Auto) 0.02 (0.01-0.20) K/uL PT 10.9 (9.0-12.0) Seconds INR 1.0 (0.9-1.1) POC Sodium (135-144) mmol/L Sodium 138 (136-145) mmol/L POC Potassium (3.3-5.0) mmol/L Potassium 4.0 (3.5-5.1) mmol/L POC Chloride (101-112) mmol/L Chloride 106 (98-107) mmol/L Carbon Dioxide 23 (21-32) mmol/L POC Total CO2 (24-31) mmol/L Anion Gap 9 (3-11) POC Anion Gap (16-25) mmol/L POC BUN (7-18) mg/dl BUN 33 H (6-23) mg/dl Creatinine 1.19 (0.6-1.2) mg/dl POC Creatinine (0.6-1.3) mg/dl Est Cr Clr Drug Dosing 41.1 ml/min Est GFR ( Amer) 54.3 ml/min Est GFR (Non-Af Amer) 46.9 ml/min BUN/Creatinine Ratio 27.7 H (10-20) Glucose 174 H (70-99(Fasting)) mg/dl POC Glucose (other) (70-99) mg/dl Calcium 9.8 (8.6-10.3) mg/dl POC Ioniz Calcium Wilma (1.12-1.32) mmol/l Total Bilirubin 1.0 (0.2-1.0) mg/dl AST 24 (13-39) U/L ALT 22 (7-52) U/L Alkaline Phosphatase 50 (34-104) U/L Total Protein 7.0 (6.0-8.3) gm/dl Albumin 4.6 (3.4-5.0) gm/dl Globulin 2.4 L (2.5-4.0) gm/dl Albumin/Globulin Ratio 1.9 (0.9-2) 12/28/22 Range/Units 06:15 WBC (4.8-10.8) K/ul RBC (4.20-5.40) M/uL Hgb (12.0-16.0) g/dl POC Hgb 13.3 (12.0-16.0) g/dl Hct (37.0-47.0) % POC Hct 39 (37-47) % MCV (80.0-100.0) fL MCH (25.0-34.0) pg MCHC (32.0-36.0) g/dL RDW Std Deviation (36.4-46.3) fL RDW Coeff of Tanner (11.5-14.5) % Plt Count (130-400) K/uL MPV (9.4-12.4) fL Immature Gran % (Auto) % Neut % (Auto) % Lymph % (Auto) % [place] % (Auto) % Eos % (Auto) % Baso % (Auto) % Neut # (Auto) (1.40-6.50) K/uL Lymph # (Auto) (1.2-3.4) K/uL [place] # (Auto) (0.11-0.59) K/uL Eos # (Auto) (0-0.50) K/uL Baso # (Auto) (0-0.2) K/uL Immature Gran # (Auto) (0.01-0.20) K/uL PT (9.0-12.0) Seconds INR (0.9-1.1) POC Sodium 139 (135-144) mmol/L Sodium (136-145) mmol/L POC Potassium 4.1 (3.3-5.0) mmol/L Potassium (3.5-5.1) mmol/L POC Chloride 104 (101-112) mmol/L Chloride (98-107) mmol/L Carbon Dioxide (21-32) mmol/L POC Total CO2 22 L (24-31) mmol/L Anion Gap (3-11) POC Anion Gap 19.0 (16-25) mmol/L POC BUN 32 H (7-18) mg/dl BUN (6-23) mg/dl Creatinine (0.6-1.2) mg/dl POC Creatinine 1.3 (0.6-1.3) mg/dl Est Cr Clr Drug Dosing ml/min Est GFR ( Amer) ml/min Est GFR (Non-Af Amer) ml/min BUN/Creatinine Ratio (10-20) Glucose (70-99(Fasting)) mg/dl POC Glucose (other) 178 H (70-99) mg/dl Calcium (8.6-10.3) mg/dl POC Ioniz Calcium Wilma 1.24 (1.12-1.32) mmol/l Total Bilirubin (0.2-1.0) mg/dl AST (13-39) U/L ALT (7-52) U/L Alkaline Phosphatase (34-104) U/L Total Protein (6.0-8.3) gm/dl Albumin (3.4-5.0) gm/dl Globulin (2.5-4.0) gm/dl Albumin/Globulin Ratio (0.9-2) Imaging Data Attestation: I personally reviewed and interpreted this imaging study as follows: My Impression: Chest x-ray interpreted by me sternal wires mild cardiomegaly no obvious infiltrate no pneumothorax ECG Data Attestation: I personally reviewed and interpreted this ECG as follows: Additional Comments: EKG interpreted by me atrial fibrillation rate [address] segment elevation in V1 and V2 with ST depression in V3 and elevation of the ST segment in aVR with nonspecific ST-T change and depression in V4 through V6; normal axis, this is consistent in comparison to EKG of 2021 with a acute anterior lateral wall LA Telemetry was ordered by me, interpreted as atrial fibrillation rate of 102 MDM Narrative Medical decision making differential diagnosis includes acute LA, thoracic aortic dissection, pulmonary embolism, cardiac dysrhythmia, atrial fibrillation, electrolyte abnormality, angina, unstable angina Plan is to check labs, EKG, chest x-ray Patient's EKG in comparison to 2021 is concerning for anterolateral LA A STEMI alert was activated at 5:59 AM Patient was started on aspirin and fluids and fentanyl Patient's heart score is greater than 6 Impression & Plan ST elevation myocardial infarction (STEMI), Chest pain, Atrial fibrillation Discharge Plan Visit Data Chief Complaint: Chest Pain Stated Complaint: CHEST PAIN, HEART PALPITATION ED Provider: Sabino Abbott Discharge Problem: ST elevation myocardial infarction (STEMI), Chest pain, Atrial fibrillation Patient Disposition: Admitted As Inpatient Forms Stand Alone Forms: [facility] Prescriptions Prescriptions: No Action lisinopril 30 mg tablet 30 mg PO DAILY rosuvastatin 40 mg tablet 40 mg PO DAILY aspirin 81 mg Tablet,Delayed Release (Dr/Ec) 81 mg PO DAILY coenzyme Q10 [CoQ-10] 100 mg Capsule 100 mg PO DAILY cholecalciferol (vitamin D3) [Vitamin D3] 50 mcg (2,000 unit) Capsule 50 mcg PO DAILY omega 2-gey-scw-fish oil [Fish Oil] 1,000 mg (120 mg-180 mg) Capsule 1 cap PO BID Referrals Referrals: PCP,NO [Physician] -
[2022-12-28 06:23] LABS: Basophils # (auto) 0.03 K/uL (0-0.2); Basophils % (auto) 0.5 %; Eosinophils # (auto) 0.19 K/uL (0-0.50); Eosinophils % (auto) 3.1 %; Hematocrit (blood only) 38.5 % (37.0-47.0); Hemoglobin 13.2 g/dl (12.0-16.0); Immature Granulocytes # (auto) 0.02 K/uL (0.01-0.20); Immature Granulocytes % (auto) 0.3 %; Lymphocytes # (auto) 2.31 K/uL (1.2-3.4); Lymphocytes % (auto) 37.5 %; Mean Corpuscular Hemoglobin 31.9 pg (25.0-34.0); Mean Corpuscular Hgb Conc 34.3 g/dL (32.0-36.0); Mean Platelet Volume 10.5 fL (9.4-12.4); Monocytes # (auto) 0.41 K/uL (0.11-0.59); Monocytes % (auto) 6.7 %; Neutrophils % (auto) 51.9 %; Platelet Count 141 K/uL (130-400); RDW Coefficient of Variation 12.7 % (11.5-14.5); RDW Standard Deviation 43.8 fL (36.4-46.3); Red Blood Count 4.14 M/uL (4.20-5.40); White Blood Count 6.16 K/ul (4.8-10.8)
[2022-12-28] MEDS ORDERED: niCARdipine HCL INJ 2.5 MG/ML 10 ML AMP ONE (06:23)
[2022-12-28] MEDS ORDERED: MIDAZOLAM HCL 1 MG/ML 2ML VIAL ONE (06:23)
[2022-12-28] MEDS ORDERED: HEPARIN (PORCINE) 1000 UNIT/ML 10 ML (CATH LAB USE ONLY) ONE (06:23)
[2022-12-28] MEDS ORDERED: NITROGLYCERIN/D5W 100MCG/ML 20ML SYR ONE (06:24)
[2022-12-28 06:28] LABS: iSTAT Creatinine 1.3 mg/dl (0.6-1.3); iSTAT Hemoglobin 13.3 g/dl (12.0-16.0); iSTAT Ionized Calcium 1.24 mmol/l (1.12-1.32); iSTAT Potassium 4.1 mmol/L (3.3-5.0)
[2022-12-28] MEDS: fentaNYL citrate PF 100 MCG/2 ML VIAL ONE ×2 (06:32→07:51)
[2022-12-28] MEDS ORDERED: ASPIRIN CHEW 324 MG PO STA (06:34)
[2022-12-28] MEDS ORDERED: fentaNYL citrate PF 100 MCG/2 ML VIAL IV STA (06:34)
[2022-12-28] MEDS ORDERED: SODIUM CHLORIDE 0.9% 1000ML 1,000 ML IV ONE (06:35)
[2022-12-28 06:43] LABS: Prothrombin Time 10.9 Seconds (9.0-12.0)
[2022-12-28 06:44] LABS: Albumin Globulin Ratio 1.9 (0.9-2); Albumin Level 4.6 gm/dl (3.4-5.0); BUN Creatinine Ratio 27.7 (10-20); Calcium 9.8 mg/dl (8.6-10.3); Creatinine Clr Calc Pharmacy 41.1 ml/min; Est GFR (African American) 54.3 ml/min; Est GFR (Non-African American) 46.9 ml/min; Globulin 2.4 gm/dl (2.5-4.0)
[2022-12-28 06:50] LABS: Troponin I High Sensitivity 13.2 pg/ml (0-14)
[2022-12-28] MEDS ORDERED: ONDANSETRON INJ 2 MG/ML 2 ML VIAL IV PRN (08:09)
--- NOTE | 2022-12-28 08:11 | XRay Report ---
SINGLE VIEW CHEST CLINICAL HISTORY: Atypical chest pain FINDINGS: An AP, portable, upright chest radiograph is compared to study dated 11/01/2020 and correlat ed with chest CT dated 08/30/2021. The patient is status post midline sternotomy. The heart is enlarged noting atherosclerotic calcification of the thoracic aorta. There is pulmonary vascular congestion. Scarring/atelectasis is noted at the lung bases. No airspace consolidation or large pleural effusion is identified. No pneumothorax is seen. The skeletal structures are osteopenic. Mild degenerative dangelo nge is noted in shoulders. The bony thorax is grossly intact. Cholecystectomy clips are seen in the r ight upper quadrant. IMPRESSION: Cardiomegaly with mild pulmonary vascular congestion. ACT 112: Negative or not required by law. Electronically signed by: Tae Baez M.D. 12/28/2022 8:09 AM
[2022-12-28 08:12] LABS: iSTAT Arterial Blood Gas HCO3 24 meg/L (19-24); iSTAT Arterial Blood Gas pCO2 48 mmHg (35-46); iSTAT Arterial Blood Gas pH 7.32 (7.35-7.45); iSTAT Arterial Blood Gas pO2 < 32 mmHg (80-95); iSTAT Carbon Dioxide 26 mmol/L (24-31)
[2022-12-28 08:12] LABS: iSTAT Arterial Blood Gas HCO3 24 meg/L (19-24); iSTAT Arterial Blood Gas pCO2 45 mmHg (35-46); iSTAT Arterial Blood Gas pH 7.33 (7.35-7.45); iSTAT Arterial Blood Gas pO2 65 mmHg (80-95); iSTAT Carbon Dioxide 25 mmol/L (24-31)
--- NOTE | 2022-12-28 08:28 | Post Anesthesia Assessment ---
Date of Service December 28, 2022 Post Sedation Assessment Vital Signs Temp Pulse Pulse Resp BP BP Pulse Ox 12/28/22 06:13 82 18 129/59 L 98 12/28/22 06:40 100/50 L 12/28/22 06:40 76 18 95 12/28/22 06:30 89 16 107/44 L 88 L 12/28/22 06:20 86 25 H 98/51 L 89 L 12/28/22 06:13 93 H 15 114/70 12/28/22 06:09 101 H 21 137/64 92 12/28/22 06:16 103 H 18 92 12/28/22 06:13 111 H 18 114/70 94 12/28/22 06:03 109 H 12/28/22 05:49 97.7 F 74 18 125/73 97 O2 Del Method 12/28/22 06:13 Room Air 12/28/22 06:40 12/28/22 06:40 12/28/22 06:30 12/28/22 06:20 12/28/22 06:13 12/28/22 06:09 12/28/22 06:16 Room Air 12/28/22 06:13 Room Air 12/28/22 06:03 12/28/22 05:49 Room Air Recovery Score Activity: Moves 4 extremities Respiration: Deep Breath/Cough Circulation: +/-20% PreAnes Value Consciousness: Fully Awake Oxygen Saturation: > 92% On Room Air Post Anesthesia Score: 10 Discharge Sedation Level of Care: Fast Track Phase II Post Sedation Plan On clinical assessment, the patient appears to have tolerated the sedation without complications. Patient is recovering as anticipated. Patient will continue to be monitored by nursing and may be discharged when sedation discharge criteria are met per below protocol. Upon Completions of procedure up to 15 minutes continue every 5 minute vital signs and the P.A.R. score; then discharge to a Phase I or Fast Track to Phase II per the following guidelines: * Discharge Patient to appropriate Phase II area if PAR is 8 or greater or return to pre- procedure baseline. The post - procedure orders will be as directed. * If PAR score is less than 8 or not return to pre-procedure baseline then patient will follow Phase I monitoring till PAR is reached for Phase II. The Phase I may be done in procedure room or may call to secure a Phase I area. * If naloxone or flumazenil are used for reversal, hold in Phase I for continued monitoring from when last reversal dose was given for a minimum of 60 minutes or longer pending the nurse and/or physician discretion of patient condition before discharge to Phase II. Please call the Sedation Physician to re-evaluate and complete post-note for discharge to Phase II area. Do NOT discharge from procedure sedation or Phase 1 until post- sedation alfred luation note is complete by procedure /sedation MD Sedation Discharge Instructions to be given to the patient at discharge to home.
--- NOTE | 2022-12-28 08:46 | Cardiac Catheterization ---
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 Cardiac Status Clinical evaluation leading to the procedure CAD Presenation: Unstable angina Anginal Classification: CCS IV Diagnostic Physicians Name: Judd Silva MD Closure Device Recommendations: Medical Therapy and/or Counseling Cardiac Cath Procedure Full Procedure Date December 28, 2022 Pre-Procedure Diagnosis Pre-Procedure Diagnosis: Acute Coronary Syndrome, CAD and Valvular Disease AUC Score AUC Score: 8 Post-Procedure Diagnosis Post-Procedure Diagnosis: Severe CAD, Normal Intracardiac Pressures and Cardiothoracic Finding (Pulmonary hypertension) Procedure(s) Performed Procedure(s) Performed: Coronary Angiography, Left Heart Cath, Right Heart Cath, Ultrasound Guided Vascular Access and Bypass Graft Angiography Tool Smith Judd Silva MD Tab Machine Operator(s) Jose Estimated Blood Loss Estimated Blood Loss: 10 Medication(s) Medication(s): Fentanyl, Heparin, Lidocaine 1%, Nicardipine, Nitroglycerin and Versed Summary of Findings Indication: 67-year-old woman with a history of surgical bioprosthetic aortic valve, two- vessel CABG (MORIN to LAD, SVG to RCA) in 2011. Patient with known prosthetic valve severe aortic stenosis being considered for possible valve in valve TAVR. Also has known pulmonary hypertension with dilated RV. This morning patient developed acute onset chest pain prompting ED eval. Initial ECG showed new atrial fibrillation with lateral ST depressions, borderline elevation in V1, V2 and in aVR. Peak heart rate in the 100s. Heart alert was activated. Access: 6 Fr left radial artery. 6 Fr right brachial vein under ultrasound guidance Catheters: Diagnostic JL 4, JR4, NILAM, 6 Fr [place] Findings: LM - Medium caliber, 30% mid, 50% distal LAD -medium caliber, 50% proximal, 70% mid. Competitive flow in mid vessel from MORIN. Small D1 with 80% lesion. D2 diffusely diseased up to 60%. Circumflex -medium caliber, 40 to 50% ostial stenosis, 30% mid segment disease. Small OM1 with 90% focal stenosis. Medium OM2 without significant disease. RCA -dominant, calcified, diffuse proximal to mid moderate disease. Latemid stent with 90% in-stent restenosis. Competitive flow in distal RCA. MORIN to LADwidely patent SVG to RCAwidely patent RA 5 RV 51/4 PA 51/25/35 LVEDP 8 PaSat 55% AoSat 91% Flynn CO/CI 3.9/2.3 Thermo CO/CI 2.5/1.5 TPG 27 PVR 6.9 Wood units Arterial Closure: TR band Summary: 1. Chronic multivessel coronary artery disease - 50% distal LMCA 50% ostial LCx, 90% small OM1 (too small for stenting) 70% mid LAD 90% mid RCA 2. Widely patent MORIN to LAD, SVG to RCA 3. Normal left and right-sided filling pressures. 4. Moderate pulmonary hypertension (precapillary). 5. Preserved cardiac output 6. Prosthetic valve aortic stenosis (pullback peak to peak gradient 33 mmHg) Recommendations: Admit to telemetry for further monitoring Repeat echo, trend troponin Continue ASCVD risk factor modification Anticoagulation per Dr. Neri Hemodynamics Rest Ao:: 119/46/80 Final Ao: 118/47/66 LV: -- Recommendations Recommendations: Medical Therapy and/or Counseling Specimens Specimens: None Radiation Exposure (mGy) 347 Contrast (mls) 90 Anesthesia moderate 9029-5538 Procedural Complication(s) None Disposition Central Office Repairer Supervisor Holding/Recovery I attest to the content of the Intraoperative Record and any orders documented therein. Any exceptions are noted below. [facility] [place] Card Cath Procedure Codes Cardiac Catheterization Procedure 1: Cardiovascular Cath Procedures: 28993 Coronaries & RHC &LHC&Grafts/IM (arterial & venous) Therapeutic Services & Ancillary Procedure 1: Cardiovascular Tx and Anc Procedures: 38827 Ultrasonic Guidance Vascular Access Moderate Sedation Procedure 1: Sedation/Anesthesia: 05756 Mod Sedation by the same physician;Init15 Min Child Age 5 & Up Procedure 2: Sedation/Anesthesia: 60906 Mod Sedation by the same physician; Ea [id number] Minutes PG Care Time/CCT Total # of Minutes Spent Total Time Spent with Patient: Total time spent is greater than 50% in coordination of care (as documented) at patient's floor/unit and/or counseling patient:
--- NOTE | 2022-12-28 09:24 | History & Physical Report ---
Date of Service December 28, 2022 Assessment & Plan (1) Chest pain: Plan: Acute/stable - uncertain risk - Admit to PCU - Heart alert, [facility] performed 12/[address] Silva, grafts patent, otherwise moderate cad -- non ACS CP - Obtain transthoracic echo - Serial HS trops - Continue ASA, statin - Low index of suspicion for PE, well's score 0 - Suspect CP related to new onset afib +/- RVR (2) Atrial fibrillation: Plan: Acute/stable - new onset - moderate risk - Suspect could've been in RVR at the time of CP onset but presently rate controlled - Echo as above - Check TSH with reflex T4 and mag level - CMP reviewed, potassium 4.1 - Initiate Metoprolol Tartrate 25mg BID - Chads-vasc score is 4 - high stroke risk, will initiate AC with Eliquis 5mg BID (3) Coronary artery disease: Plan: Chronic/stable - CAD s/p CABG x 2 vessel (MORIN to LAD, SVG to RCA performed in 2011 at [facility] [place]) - Continue ASA, statin, start BB therapy as well (4) Hypertension: Plan: Chronic/stable - Normally on Lisinopril pre-hospital - Starting Metoprolol as above, will monitor BP and adjust meds accordingly (5) Aortic valve replaced: Plan: Chronic/unstable - moderate risk - Patient is s/p 21mm bioprosthetic aortic valve replacement performed in 2011 at [facility] [place]. She has moderated to severe prosthetic valve stenosis. - Follows with Dr. Neri, who has been consulted, appreciate assistance - Mild HF appreciated both clinically and radiographically, a dose of IV Lasix 20mg x1 ordered, monitor I/O - reassess and defer additional IV diuresis at this time - Will need to f/u with [facility] [place] re: TAVR (6) Acute right-sided congestive heart failure: (7) Type 2 myocardial infarction: (8) Elevated troponin I level: (9) Aortic stenosis: Plan DVT ppx will be covered with initiation of eliquis as above. Repeat labs have been ordered for tomorrow AM including cbc, bmp, and mag. Above plan of care has been d/w Dr. Swain who will also see and evaluate this patient. Further orders will be implemented as hospitalization warrants. History of Present Illness Chief Complaint: chest pain - heart alert Primary Care Provider: Thania Page is a 67 yo F with a pmhx of CAD s/p 2-vessel CABG, HTN, surgical bioprosthetic AVR in 2011 with moderate to severe prosthetic stenosis who presented to the ER this morning as a heart alert. Patient reports that she got up this morning and started getting ready for work when she began to experience some substernal chest discomfort described as pressure associated with palpit ations/fluttering. She felt that her heart was beating faster than normal and has never experienced symptoms like this previously. She denies radiation of the pain or associated symptoms of diaphoresis, dyspnea, n/v/d, lightheadedness or dizziness. She denies orthopnea or PND. Due to her symptoms, she sought care in the ER where she was called as a "heart alert" due to concerns for STEMI. Her initial troponin was negative at 13.2; however, her EKG was concerning due to anterolateral ST depressions and minimal ST elevations in V1 and V2. Was also noted to be in new onset atrial fibrillation w/o RVR. Patient was taken to the bed laborer by Dr. Silva, no PCI was required, and hospitalists have been asked to transition her care to medical service following procedure. Allergies Allergy/AdvReac Type Severity Reaction Status Date / Time clonidine AdvReac Unknown CAN'T Verified 08/29/21 23:28 REMEMBER colestipol AdvReac Unknown CAN'T Verified 08/29/21 23:28 REMEMBER Home Medications Medication Instructions Recorded Confirmed Type lisinopril 30 mg tablet 30 mg PO DAILY 11/05/20 12/28/22 History rosuvastatin 40 mg tablet 40 mg PO DAILY 11/05/20 12/28/22 History aspirin 81 mg tablet,delayed 81 mg PO DAILY 08/29/21 12/28/22 History release (Phill Low Dose Aspirin) cholecalciferol (vitamin D3) 50 100 mcg PO DAILY 08/29/21 12/28/22 History mcg (2,000 unit) capsule (Vitamin D3) coenzyme Q10 100 mg capsule 100 mg PO DAILY 08/29/21 12/28/22 History (CoQ-10) omega 7-lrw-tdb-fish oil 1,000 mg 1 cap PO BID 08/29/21 12/28/22 History (120 mg-180 mg) capsule (Fish Oil) amlodipine 5 mg tablet 5 mg PO DAILY 12/28/22 12/28/22 History ezetimibe 10 mg tablet 10 mg PO DAILY 12/28/22 12/28/22 History metoprolol tartrate 50 mg tablet 50 mg PO BID 12/28/22 12/28/22 History Past Med/Surg History Medical History Aortic valve replaced Bioprosthetic aortic valve 2011 Coronary artery disease s/p CABG x 2v Encounter for pre-operative examination Hypertension Surgical History History of coronary artery bypass graft x 2 MORIN to LAD and SVG to RCA S/P appendectomy S/P laparoscopic cholecystectomy (11/01/20) Laparoscopic Cholecystectomy - Jeff Sharma, DO 11/01/20 Social History Smoking Status: Former smoker Tobacco Type: Cigarettes Do You Dip or Chew Tobacco: No; Hx Alcohol Use: No Hx Substance Use: No Preferred Language: Chinese Communication Ability: Effective Dictaphone Transcriber Required: No Beliefs That Will Affect Care: None Current Living Situation: Spouse Feels Safe at Home: Yes Assistive Devices: Glasses Physical Exam Physical Exam: GENERAL: 67 yo well-developed, well-nourished F. AAOx4. NAD. LUNGS: Nonlabored. No JVD. Fine basilar crackles. CARDIOVASCULAR: Irregularly irregular with 3/6 systolic murmur ABDOMEN: Soft, non-tender and non-distended. BS normoactive x 4 quad. EXTREMITIES: No edema. Non-tender. Peripheral pulses +2/4. Results & Data Results & Data Vital Signs (Past 12 Hours) Vital Signs Temp Pulse Pulse Resp BP BP Pulse Ox 12/28/22 08:30 80 18 130/59 L 98 12/28/22 08:45 80 18 133/52 L 95 12/28/22 08:13 82 18 129/59 L 98 12/28/22 06:40 100/50 L 12/28/22 06:40 76 18 95 12/28/22 06:30 89 16 107/44 L 88 L 12/28/22 06:20 86 25 H 98/51 L 89 L 12/28/22 06:13 93 H 15 114/70 12/28/22 06:09 101 H 21 137/64 92 12/28/22 06:16 103 H 18 92 12/28/22 06:13 111 H 18 114/70 94 12/28/22 06:03 109 H 12/28/22 05:49 36.5 C 74 18 125/73 97 O2 Del Method O2 Flow Rate 12/28/22 08:30 Room Air 12/28/22 08:45 Nasal Cannula 2 12/28/22 08:13 Room Air 12/28/22 06:40 12/28/22 06:40 12/28/22 06:30 12/28/22 06:20 12/28/22 06:13 12/28/22 06:09 12/28/22 06:16 Room Air 12/28/22 06:13 Room Air 12/28/22 06:03 12/28/22 05:49 Room Air Laboratory Results 12/28/22 06:09 12/28/22 06:09 Diagnostic Findings Chest X-Ray 12/28/22 05:53 SINGLE VIEW CHEST CLINICAL HISTORY: Atypical chest pain FINDINGS: An AP, portable, upright chest radiograph is compared to study dated 11/01/2020 and correlated with chest CT dated 08/30/2021. The patient is status post midline sternotomy. The heart is enlarged noting atherosclerotic calcification of the thoracic aorta. There is pulmonary vascular congestion. Scarring/atelectasis is noted at the lung bases. No airspace consolidation or large pleural effusion is identified. No pneumothorax is seen. The skeletal structures are osteopenic. Mild degenerative change is noted in shoulders. The bony thorax is grossly intact. Cholecystectomy clips are seen in the right upper quadrant. IMPRESSION: Cardiomegaly with mild pulmonary vascular congestion. ACT 112: Negative or not required by law. Electronically signed by: Tae Baez M.D. 12/28/2022 8:09 AM Code Status & VTE Plan VTE Prophylaxis Plan VTE Prophylaxis will be ordered: Yes Supervising Physician Co-Signing Physician Notes Attending Attestation & Admission Note: Pt seen/examined, chart reviewed, care plan d/w AARON Rose. I agree w/ the alanis components of her admission documentation. 67yo female with known CAD s/p CABG 2V, valvular heart disease s/p AVR (biopro sthetic), AVR stenosis, and HTN presented with acute chest pain & dyspnea along with palpitations. Was found to be in new-onset a.fib at time of ER presentation and there was subtle ST elevations with reciprocal depressions on EKG. Code heart alert called; taken to bed laborer by Dr Judd Silva. During such it was found that she has severe [place] CAD but her 2 grafts were patent. I saw the patient in her room following her heart cath and she was resting comfortably. No further chest pain. No palpitations. Dyspnea has improved with lasix IV. PMH/PSH/allergies/meds/sochx - reviewed VSS, afebrile gen - NAD, resting comfortably in bed neck - no JVD mouth - MMM heart - irregularly irregular, s1 s2, 2-3/6 holosystolic murmur RUSB lungs - fine b/l basilar rales abd - soft NT ND BS+ ext - no edema, pulses 2+ b/l labs reviewed HS trop - 13, followed by 3711 cxr reviewed A/P: 1. new onset atrial fibrillation 2. elevated troponin / type 2 NH 3. acute HFpEF / acute right sided CHF (echo with mild RV dysfunction) 4. s/p AVR status with subsequent development of and AI 5. mod-severe MR 6. pulm HTN 7. HTN 8. hyperlipidemia 9. known CAD with h/o 2V CABG; grafts patent on heart cath today appreciate cardiology assistance cont gentle diuresis metoprolol for rate control for a.fib trend HS trops start Eliquis 5mg BID for AC for #1 Roland Swain MD PG Care Time/CCT Total # of Minutes Spent Total Time Spent with Patient: Total time spent is greater than 50% in coordination of care (as documented) at patient's floor/unit and/or counseling patient: Coding Level of Care Code 28120 INT INP/OBS CARE 3/75MIN Diagnoses Chest pain R07.9 Atrial fibrillation I48.91 Coronary artery disease I25.10 Hypertension I10 Aortic valve replaced Z95.2 Acute right-sided congestive heart failure I50.811 Type 2 myocardial infarction I21.A1 Elevated troponin I level R77.8 Aortic stenosis I35.0
[2022-12-28] MEDS ORDERED: METOPROLOL TARTRATE 25 MG TAB PO SCH ×3 (09:45→21:00)
[2022-12-28 10:02] LABS: Magnesium 1.8 mg/dl (1.7-2.4)
[2022-12-28] MEDS ORDERED: FUROSEMIDE INJ 20 MG/2 ML VIAL IV ONE (10:04)
[2022-12-28] MEDS: ASPIRIN 81 MG ECTAB PO SCH ×2 (10:23→10:29)
[2022-12-28] MEDS: ROSUVASTATIN CALCIUM 20 MG TAB PO SCH (10:23)
--- NOTE | 2022-12-28 11:54 | Cardiology Consultation ---
Date of Consultation December 28, 2022 Assessment & Plan (1) ST elevation myocardial infarction (STEMI): (2) Atrial fibrillation: (3) Diastolic CHF: Plan -Status post bioprosthetic aortic valve replacement for severe aortic stenosis (10/2011) with history of normal hemodynamic profile by echo 02/2016. -Severe prosthetic stenosis with preserved left ventricular systolic function and type 2 diastolic dysfunction and [id number] pulmonary hypertension by echo 04/2022. -Hypertension. -Hyperlipidemia. -Last echo was performed in April 2022. Ejection fraction 65%, mild concentric left ventricular hypertrophy, grade 2 diastolic dysfunction with elevated left atrial filling pressure, dilated right ventricle with normal systolic function, severely dilated left atrium, dilated right atrium, dilated proximal ascending aorta measuring 3.5 cm, well-seated 23 mm magna pericardial bioprosthetic aortic valve replacement with severe prosthesis stenosis.(LVOT/AV ratio is 0.25; ИРИНА is 0.6 cm2; AV mean pressure gradient is 36 mmHg), trace to mild paravalvular prosthesis insufficiency, moderate mitral regurgitation, moderate pulmonary hypertension with PA systolic pressures of 56 mmHg - Cardiac catheterization this admission showing chronic multivessel coronary artery disease - - 50% distal LMCA, 50% ostial LCx, 90% small OM1 (too small for stenting), 70% mid LAD, 90% mid RCA, widely patent MORIN to LAD, SVG to RCA, normal left and right-sided filling pressures, Moderate pulmonary hypertension (precapillary), preserved cardiac output, Prosthetic valve aortic stenosis (pullback peak to peak gradient 33 mmHg) Ms. Page's chest discomfort was likely triggered by new onset atrial fibrillation in the setting of chronic severe CAD and severe bioprosthetic aortic valve stenosis. She has not ever had this sensation that she felt this morning in the past. Now that her heart rate is a little slower she does not feel palpitations or A-fib anymore and so it is unclear if she may have been having episodes of more rate controlled A-fib at home prior to this. She has appropriately been started on Eliquis by the hospitalists. Given her severe prosthetic valve stenosis, she is high risk for cardioversion and it is not recommended. A rate control strategy should be pursued instead. Her AV mila blockers should be pushed as far as she can tolerate. She did have significant ischemic changes on her EKG in the ED. I will order a repeat. Her troponin should be followed. At this point her angina has resolved. She was in diastolic heart failure on admission with pulmonary edema on her chest Xray. She was administered 20 mg IV furosemide. She should have strict Is&Os. Depending on her respiratory status and kidney function in the morning, she may warrant a repeat dose. She has a repeat echo pending. We will discuss outpatient setting her up for a T AVR in her SAVR given her severe stenosis with current sequelae. She will need close follow up with the cardiology clinic at discharge. [facility] cardiology service is covering for the weekend and sign out on this patient will be given to them. Ms. Page's case was discussed with Dr. Neri. History of Present Illness Attending Physician: Judd Silva MD History of Present Illness Ms. Page presented to the ED today after developing palpitations, chest pain, and sob while standing in her kitchen doing dishes this morning. She was found to be in new onset afib with mild ST elevations on EKG and so a heart alert was called and she was taken to the airport maintenance laborer. Her grafts were found to be patent and no stenting was performed. At this point she is resting comfortably in bed. She denies chest discomfort or palpitations or sob. Allergies Allergy/AdvReac Type Severity Reaction Status Date / Time clonidine AdvReac Unknown CAN'T Verified 08/29/21 23:28 REMEMBER colestipol AdvReac Unknown CAN'T Verified 08/29/21 23:28 REMEMBER Home Medications Medication Instructions Recorded Confirmed Type lisinopril 30 mg tablet 30 mg PO DAILY 11/05/20 12/28/22 History rosuvastatin 40 mg tablet 40 mg PO DAILY 11/05/20 12/28/22 History aspirin 81 mg tablet,delayed 81 mg PO DAILY 08/29/21 12/28/22 History release (Phill Low Dose Aspirin) cholecalciferol (vitamin D3) 50 100 mcg PO DAILY 08/29/21 12/28/22 History mcg (2,000 unit) capsule (Vitamin D3) coenzyme Q10 100 mg capsule 100 mg PO DAILY 08/29/21 12/28/22 History (CoQ-10) omega 7-pjb-lel-fish oil 1,000 mg 1 cap PO BID 08/29/21 12/28/22 History (120 mg-180 mg) capsule (Fish Oil) amlodipine 5 mg tablet 5 mg PO DAILY 12/28/22 12/28/22 History ezetimibe 10 mg tablet 10 mg PO DAILY 12/28/22 12/28/22 History metoprolol tartrate 50 mg tablet 50 mg PO BID 12/28/22 12/28/22 History Patient History Medical History Aortic valve replaced Bioprosthetic aortic valve 2012 Coronary artery disease s/p CABG x 2v Encounter for pre-operative examination Hypertension Surgical History History of coronary artery bypass graft x 2 MORIN to LAD and SVG to RCA S/P appendectomy S/P laparoscopic cholecystectomy (11/01/20) Laparoscopic Cholecystectomy - Jeff Sharma, DO 11/01/20 Social History Smoking Status: Former smoker Tobacco Type: Cigarettes Do You Dip or Chew Tobacco: No; Hx Alcohol Use: No Hx Substance Use: No Preferred Language: Czech Communication Ability: Effective Fire Chief'S Aide Required: No Beliefs That Will Affect Care: None Current Living Situation: Spouse Other Information That Helps Us Care for You: No Feels Safe at Home: Yes Safety Concerns: Feels Safe At This Time Assistive Devices: Glasses Review of Systems Review of Systems: All systems reviewed & are unremarkable except as noted in HPI & below Physical Exam Constitutional: WD/WN, vitals as above Respiratory: normal respiratory effort, lungs clear to auscultation Cardiovascular: Rate/Rhythm: + abnormal rate and + abnormal rhythm Heart Sounds: + murmur (3/6 rusb systolic murmur ) Extremities: no edema Skin: no rashes, warm and dry Neurologic: moves all extremities and awake Psychiatric: A+Ox3, euthymic affect Results & Data Vital Signs (Past 12 Hours) Vital Signs Temp Pulse Pulse Resp BP BP BP 12/28/22 11:15 89 24 12/28/22 11:01 77 23 12/28/22 11:01 135/54 L 12/28/22 11:00 87 23 12/28/22 10:45 85 19 12/28/22 10:31 92 H 17 12/28/22 10:31 167/60 H 12/28/22 10:30 99 H 24 12/28/22 10:15 88 23 12/28/22 10:01 86 19 12/28/22 10:01 145/48 H 12/28/22 10:00 83 18 12/28/22 09:46 90 21 12/28/22 09:46 145/64 H 12/28/22 09:45 79 21 12/28/22 09:35 98 H 27 H 12/28/22 09:46 12/28/22 09:46 36.5 C 85 17 145/64 H 12/28/22 08:30 80 18 130/59 L 12/28/22 09:00 88 16 135/54 L 12/28/22 08:45 80 18 133/52 L 12/28/22 08:13 82 18 129/59 L 12/28/22 06:40 100/50 L 12/28/22 06:40 76 18 12/28/22 06:30 89 16 107/44 L 12/28/22 06:20 86 25 H 98/51 L 12/28/22 06:13 93 H 15 114/70 12/28/22 06:09 101 H 21 137/64 12/28/22 06:16 103 H 18 12/28/22 06:13 111 H 18 114/70 12/28/22 06:03 109 H 12/28/22 05:49 36.5 C 74 18 125/73 Pulse Ox O2 Del Method O2 Flow Rate 12/28/22 11:15 92 12/28/22 11:01 92 12/28/22 11:01 12/28/22 11:00 93 12/28/22 10:45 93 12/28/22 10:31 93 12/28/22 10:31 12/28/22 10:30 91 12/28/22 10:15 92 12/28/22 10:01 90 Nasal Cannula 2 12/28/22 10:01 12/28/22 10:00 93 12/28/22 09:46 89 L 12/28/22 09:46 12/28/22 09:45 87 L 12/28/22 09:35 92 12/28/22 09:46 Nasal Cannula 2 12/28/22 09:46 90 Nasal Cannula 2 12/28/22 08:30 98 Room Air 06/09/23 09:00 93 Room Air 2 12/28/22 08:45 95 Nasal Cannula 2 12/28/22 08:13 98 Room Air 12/28/22 06:40 12/28/22 06:40 95 12/28/22 06:30 88 L 12/28/22 06:20 89 L 12/28/22 06:13 12/28/22 06:09 92 12/28/22 06:16 92 Room Air 12/28/22 06:13 94 Room Air 12/28/22 06:03 12/28/22 05:49 97 Room Air
[2022-12-28 12:23] LABS: Thyroid Stimulating Hormone 6.283 uIu/ml (0.300-4.500)
[2022-12-28 12:59] LABS: T4 Free Thyroxine 0.79 ng/dl (0.61-1.60)
[2022-12-28] MEDS ORDERED: LIDOCAINE 1% LOCAL 20 ML VIAL ONE (14:43)
[2022-12-28] MEDS: METOPROLOL TARTRATE 25 MG TAB PO SCH (20:47)
--- NOTE | 2022-12-28 21:59 | XCELERA ---
[id number] \\[email or web address]\[id number]
[2022-12-29] MEDS ORDERED: FUROSEMIDE INJ 20 MG/2 ML VIAL IV ONE (02:42)
[2022-12-29 04:34] LABS: Basophils # (auto) 0.02 K/uL (0-0.2); Basophils % (auto) 0.2 %; Eosinophils # (auto) 0.06 K/uL (0-0.50); Eosinophils % (auto) 0.7 %; Hematocrit (blood only) 34.4 % (37.0-47.0); Hemoglobin 11.9 g/dl (12.0-16.0); Immature Granulocytes # (auto) 0.03 K/uL (0.01-0.20); Immature Granulocytes % (auto) 0.3 %; Lymphocytes # (auto) 1.49 K/uL (1.2-3.4); Lymphocytes % (auto) 16.6 %; Mean Corpuscular Hgb Conc 34.6 g/dL (32.0-36.0); Mean Corpuscular Volume 92.5 fL (80.0-100.0); Mean Platelet Volume 10.9 fL (9.4-12.4); Monocytes # (auto) 0.64 K/uL (0.11-0.59); Monocytes % (auto) 7.1 %; Neutrophils # (auto) 6.72 K/uL (1.40-6.50); Neutrophils % (auto) 75.1 %; Platelet Count 119 K/uL (130-400); RDW Standard Deviation 43.9 fL (36.4-46.3); Red Blood Count 3.72 M/uL (4.20-5.40); White Blood Count 8.96 K/ul (4.8-10.8)
[2022-12-29 04:47] LABS: BUN Creatinine Ratio 36.6 (10-20); Calcium 9.6 mg/dl (8.6-10.3); Chol HDL Ratio 2.7 (0-5); Creatinine Clr Calc Pharmacy 34.4 ml/min; Est GFR (African American) 43.9 ml/min; Est GFR (Non-African American) 37.9 ml/min; Magnesium 1.9 mg/dl (1.7-2.4); Potassium 4.2 mmol/L (3.5-5.1)
[2022-12-29] MEDS: METOPROLOL TARTRATE 25 MG TAB PO SCH (08:11)
[2022-12-29] MEDS: ASPIRIN 81 MG ECTAB PO SCH (08:12)
[2022-12-29] MEDS: ROSUVASTATIN CALCIUM 20 MG TAB PO SCH (08:12)
[2022-12-29] MEDS ORDERED: APIXABAN 5 MG TABLET PO SCH (09:00)
--- NOTE | 2022-12-29 09:58 | Cardiology Progress Note ---
Date of Service December 29, 2022 Assessment & Plan (1) Aortic stenosis: (2) Aortic regurgitation: (3) Aortic valve replaced: (4) Coronary artery disease: (5) Atrial fibrillation: (6) History of coronary artery bypass graft x 2: (7) Acute heart failure with preserved ejection fraction (HFpEF): Plan ASSESSMENT/PLAN: 1. Bioprosthetic aortic valve with severe aortic stenosis and severe aortic regurgitation/paravalvular leak: Recommend aortic valve replacement, which is not available at this facility. Aortic regurgitation appears to be new. Hemodynamics during cardiac catheterization do not necessarily match echo findings but pressure half-time on echo suggests severe regurgitation/leak. Remains symptomatic with heart failure symptoms. We will attempt diuresis. Recommend transfer to [facility] where she has been evaluated in the past. Patient agreeable. 2. CAD s/p CABG x 2: Patent grafts. No acute disease requiring PCI per cath report. Branch vessel disease was noted. Angina correlated with A-fib with RVR in the setting of severe . Continue aspirin. Continue beta-rio. Continue high intensity statin therapy. 3. Atrial fibrillation: New diagnosis. Currently on beta-rio. Heart rate reasonable. Rhythm control strategy may be prudent. There was concern from her primary cardiology team that true onset of A-fib may not be known as she no longer feels palpitations with improved heart rates. She had not been previously on anticoagulation therapy. If true onset not known, transesophageal echo would be considered before antiarrhythmic therapy. She is on anticoagulation for stroke risk reduction as started during this hospital stay. 4. Elevated troponin/SC: Not acute coronary syndrome but rather probably due to A-fib with RVR in the setting of underlying CAD and severely stenotic bioprosthetic aortic valve. 5. Renal insufficiency: Creatinine elevated from baseline. She received IV dye load yesterday and appears hypervolemic, with her cardiac issues as noted. Monitor renal function closely. 6. Heart failure with preserved EF: Acute. Exam and symptoms suggest heart failure however LVEDP was unremarkable during cardiac catheterization. Timing of her aortic regurgitation not known. We will attempt diuresis. Lasix 40 mg IV x 1. Monitor renal function closely. 7. Disposition: Recommend transfer to [place] [facility] for consideration of aortic valve replacement. Aortic regurgitation/perivalvular leak appears to be a newer finding. Contacted [facility] and Dr. Mayer has accepted transfer to [facility]. She is currently hemodynamically stable. Patient care discussed with Dr. Swain of the primary hospitalist service. Highly complex medical issues. 65 minute spent for this visit, including [id number] time, counseling patient, coordinating care, discussing with [facility] transfer/accepting physician, primary hospitalist, reviewing records, and completing documentation. Admission and Anticipated Discharge Date Admission Date: December 28, 2022 Subjective Patient was seen this morning, initially without family at the bedside but returned and her son was at the bedside. She denies any further chest pain or palpitations but has noted paroxysmal nocturnal dyspnea and orthopnea. She requested supplemental oxygen overnight. She has not noted any significant urine output despite Lasix and urine output has not been measured. She has received Lasix 20 mg IV x2 thus far according to records. She would like to pursue aortic valve replacement. She has been worked up at [facility] in 2021 but was asymptomatic at that time. Physical Exam Physical Exam: Gen.: No acute distress. Alert and oriented. HEENT: Anicteric sclera. Neck: Mild JVD. Hepatojugular reflux. Cardiac: No ventricular heave. Irregularly irregular. Normal S1-S2. 2/6 late peaking systolic ejection murmur. 1/6 diastolic murmur. Pulmonary: Bibasilar Rales. Abdomen: Soft, nontender, nondistended, with normoactive bowel sounds. No bruits noted. Extremities: 2+ radial pulses bilaterally. Left radial cath site is clean, dry, and intact without erythema or discharge. 2+ posterior tibialis pulses bilaterally. No edema or cyanosis. Psychiatric: Affect appears appropriate. Results & Data Vital Signs (Past 12 Hours) Vital Signs Temp Pulse Pulse Resp BP BP Pulse Ox 12/29/22 07:00 36.8 C 96 H 16 133/45 L 96 12/29/22 05:00 81 24 94 12/29/22 05:00 112/44 L 12/29/22 04:45 86 19 96 12/29/22 04:30 83 26 H 95 12/29/22 04:30 109/44 L 12/29/22 04:15 91 H 36 H 96 12/29/22 04:00 91 H 23 94 12/29/22 04:00 36.5 C 100/37 L 12/29/22 03:45 76 26 H 95 12/29/22 03:30 81 22 95 12/29/22 03:30 101/47 L 12/29/22 03:15 92 H 26 H 94 12/29/22 03:00 82 19 96 12/29/22 03:00 120/64 12/29/22 02:45 77 21 95 12/29/22 02:30 83 36 H 95 12/29/22 02:30 123/56 L 12/29/22 02:15 72 21 95 12/29/22 02:00 78 28 H 96 12/29/22 02:00 109/46 L 12/29/22 01:45 87 15 97 12/29/22 01:30 77 21 95 12/29/22 01:30 100/43 L 12/29/22 01:15 79 21 97 12/29/22 01:00 92 H 21 96 12/29/22 01:00 115/45 L 12/29/22 00:45 87 28 H 94 12/29/22 00:33 83 31 H 94 12/29/22 00:33 109/44 L 12/29/22 00:15 80 23 95 12/29/22 00:00 86 28 H 96 12/29/22 00:00 107/51 L 12/28/22 23:45 85 34 H 97 12/28/22 23:30 88 20 95 12/28/22 23:30 136/49 L 12/28/22 23:15 92 H 31 H 95 12/28/22 23:00 83 27 H 95 12/28/22 23:00 36.6 C 101/54 L 12/28/22 22:45 94 H 22 92 12/28/22 22:30 92 H 28 H 94 12/28/22 22:30 117/55 L 12/28/22 22:15 83 20 92 12/28/22 22:00 94 H 23 95 12/28/22 22:00 146/53 H 12/28/22 22:29 O2 Del Method O2 Flow Rate 12/29/22 07:00 Nasal Cannula 2 12/29/22 05:00 12/29/22 05:00 12/29/22 04:45 12/29/22 04:30 12/29/22 04:30 12/29/22 04:15 12/29/22 04:00 12/29/22 04:00 12/29/22 03:45 12/29/22 03:30 12/29/22 03:30 12/29/22 03:15 12/29/22 03:00 12/29/22 03:00 12/29/22 02:45 12/29/22 02:30 12/29/22 02:30 12/29/22 02:15 12/29/22 02:00 12/29/22 02:00 12/29/22 01:45 12/29/22 01:30 12/29/22 01:30 12/29/22 01:15 12/29/22 01:00 12/29/22 01:00 12/29/22 00:45 12/29/22 00:33 12/29/22 00:33 12/29/22 00:15 12/29/22 00:00 12/29/22 00:00 12/28/22 23:45 12/28/22 23:30 12/28/22 23:30 12/28/22 23:15 12/28/22 23:00 12/28/22 23:00 12/28/22 22:45 12/28/22 22:30 12/28/22 22:30 12/28/22 22:15 12/28/22 22:00 12/28/22 22:00 12/28/22 22:29 Nasal Cannula 2 Intake & Output 12/27/22 12/28/22 12/29/22 12/30/22 06:59 06:59 06:59 06:59 Intake Total 610.833 / 610.833 Output Total 0 / 0 Balance 610.833 / 610.833 Weight 151 lb 10.848 oz 144 lb 6.444 oz Laboratory Results Laboratory Results - last 24 hr 12/28/22 12/28/22 12/28/22 06:09 06:10 10:37 WBC RBC Hgb Hct MCV MCH MCHC RDW Std Deviation RDW Coeff of Tanner Plt Count MPV Immature Gran % (Auto) Neut % (Auto) Lymph % (Auto) Nobles % (Auto) Eos % (Auto) Baso % (Auto) Neut # (Auto) Lymph # (Auto) Nobles # (Auto) Eos # (Auto) Baso # (Auto) Immature Gran # (Auto) Sodium Potassium Chloride Carbon Dioxide Anion Gap BUN Creatinine Est Cr Clr Drug Dosing Est GFR ( Amer) Est GFR (Non-Af Amer) BUN/Creatinine Ratio Glucose Calcium Magnesium 1.8 Troponin I High Sens Triglycerides Cholesterol LDL Cholesterol, Calc VLDL Cholesterol, Calc HDL Cholesterol Cholesterol/HDL Ratio TSH 6.283 H Free T4 0.79 Nasal Screen MRSA (PCR) Negative SARS-CoV-2, RNA, NAAT 12/28/22 12/28/22 12/28/22 14:13 15:52 22:27 WBC RBC Hgb Hct MCV MCH MCHC RDW Std Deviation RDW Coeff of Tanner Plt Count MPV Immature Gran % (Auto) Neut % (Auto) Lymph % (Auto) Nobles % (Auto) Eos % (Auto) Baso % (Auto) Neut # (Auto) Lymph # (Auto) Nobles # (Auto) Eos # (Auto) Baso # (Auto) Immature Gran # (Auto) Sodium Potassium Chloride Carbon Dioxide Anion Gap BUN Creatinine Est Cr Clr Drug Dosing Est GFR ( Amer) Est GFR (Non-Af Amer) BUN/Creatinine Ratio Glucose Calcium Magnesium Troponin I High Sens 3711.0 H* D 6940.8 H* D Triglycerides Cholesterol LDL Cholesterol, Calc VLDL Cholesterol, Calc HDL Cholesterol Cholesterol/HDL Ratio TSH Free T4 Nasal Screen MRSA (PCR) SARS-CoV-2, RNA, NAAT NEGATIVE 12/29/22 12/29/22 12/29/22 04:10 04:10 04:10 WBC 8.96 RBC 3.72 L Hgb 11.9 L Hct 34.4 L MCV 92.5 MCH 32.0 MCHC 34.6 RDW Std Deviation 43.9 RDW Coeff of Tanner 13.0 Plt Count 119 L MPV 10.9 Immature Gran % (Auto) 0.3 Neut % (Auto) 75.1 Lymph % (Auto) 16.6 Nobles % (Auto) 7.1 Eos % (Auto) 0.7 Baso % (Auto) 0.2 Neut # (Auto) 6.72 H Lymph # (Auto) 1.49 Nobles # (Auto) 0.64 H Eos # (Auto) 0.06 Baso # (Auto) 0.02 Immature Gran # (Auto) 0.03 Sodium 133 L Potassium 4.2 Chloride 105 Carbon Dioxide 21 Anion Gap 7 BUN 52 H Creatinine 1.42 H Est Cr Clr Drug Dosing 34.4 Est GFR ( Amer) 43.9 Est GFR (Non-Af Amer) 37.9 BUN/Creatinine Ratio 36.6 H Glucose 140 H Calcium 9.6 Magnesium 1.9 Troponin I High Sens 7452.7 H* Triglycerides 67 Cholesterol 154 LDL Cholesterol, Calc 83 VLDL Cholesterol, Calc 13 HDL Cholesterol 58 Cholesterol/HDL Ratio 2.7 TSH Free T4 Nasal Screen MRSA (PCR) SARS-CoV-2, RNA, NAAT Diagnostic Findings Cardiac cath 12/28/2022: [place], [place] Cardiac CatheterizationSigned Patient: ANGEL LUIS COOPER Date: 12/28/22MR#: [id number] Phy: Judd Silva, [facility]:[id number] Phy: Thania Douglas ME-CBir Date: 1955Fam Phy: Sarabjit Neri, DOAge: 67Location: 1ESex: F Room/Bed: [address] Phy: Self, Referredcc: ~ DICTATED BY: Judd Silva MD [facility] Data: Unit Supervisor Cardiac Status Clinical evaluation leading to the procedure CAD Presenation: Unstable angina Anginal Classification: CCS IV Diagnostic Physicians Name: Judd Silva MD Closure Device Recommendations: Medical Therapy and/or Counseling Cardiac Cath Procedure Full Procedure Date December 28, 2022 Pre-Procedure Diagnosis Pre-Procedure Diagnosis: Acute Coronary Syndrome, CAD and Valvular Disease AUC Score AUC Score: 8 Post-Procedure Diagnosis Post-Procedure Diagnosis: Severe CAD, Normal Intracardiac Pressures and Cardi othoracic Finding (Pulmonary hypertension) Procedure(s) Performed Procedure(s) Performed: Coronary Angiography, Left Heart Cath, Right Heart Cath, Ultrasound Guided Vascular Access and Bypass Graft Angiography Carbide Operator Judd Silva MD Nutrition Partner(s) Jose Estimated Blood Loss Estimated Blood Loss: 10 Medication(s) Medication(s): Fentanyl, Heparin, Lidocaine 1%, Nicardipine, Nitroglycerin and Versed Summary of Findings Indication: 67-year-old woman with a history of surgical bioprosthetic aortic valve, two- vessel CABG (MORIN to LAD, SVG to RCA) in 2011. Patient with known prosthetic valve severe aortic stenosis being considered for possible valve in valve TAVR. Also has known pulmonary hypertension with dilated RV. This morning patient developed acute onset chest pain prompting ED eval. Initial ECG showed new atrial fibrillation with lateral ST depressions, borderline elevation in V1, V2 and in aVR. Peak heart rate in the 100s. Heart alert was activated. Access: 6 Fr left radial artery. 6 Fr right brachial vein under ultrasound guidance Catheters: Diagnostic JL 4, JR4, NILAM, 6 Fr [place] Findings: LM - Medium caliber, 30% mid, 50% distal LAD -medium caliber, 50% proximal, 70% mid. Competitive flow in mid vessel from MORIN. Small D1 with 80% lesion. D2 diffusely diseased up to 60%. Circumflex -medium caliber, 40 to 50% ostial stenosis, 30% mid segment disease. Small OM1 with 90% focal stenosis. Medium OM2 without significant disease. RCA -dominant, calcified, diffuse proximal to mid moderate disease. Latemid stent with 90% in-stent restenosis. Competitive flow in distal RCA. MORIN to LADwidely patent SVG to RCAwidely patent RA 5 RV 51/4 PA 51/25/35 LVEDP 8 PaSat 55% AoSat 91% Flynn CO/CI 3.9/2.3 Thermo CO/CI 2.5/1.5 TPG 27 PVR 6.9 Wood units Echo 12/28/2022: Normal LV size, systolic function, wall motion, EF 55 to 60%. No LVH. Mildly reduced RV systolic function. Severe left atrial dilation. Bioprosthetic aortic valve with severe stenosis and eccentric, suspected severe regurgitation/perivalvular leak. Moderate to severe MR. RVSP 55. Compared to 08/30/2021 study, aortic regurgitation/perivalvular leak now appears more signific ant. Telemetry personally reviewed: Atrial fibrillation ECG personally reviewed 12/28/2022: A-fib [address]/T wave abnormality. Medications Administered Current Inpatient Medications Apixaban (Apixaban 5 Mg Tablet) 5 mg PO BID LOTTIE Stop: 01/28/23 08:59 Last Admin: 12/29/22 08:12 Dose: 5 mg Aspirin (Aspirin 81 Mg Ectab) 81 mg PO DAILY LOTTIE Stop: 01/27/23 08:59 Last Admin: 12/29/22 08:12 Dose: 81 mg Metoprolol Tartrate (Metoprolol Tartrate 25 Mg Tab) 37.5 mg PO BID LOTTIE Stop: 01/27/23 20:59 Last Admin: 12/29/22 08:11 Dose: 37.5 mg Ondansetron HCl (Ondansetron Inj 2 Mg/Ml 2 Ml Vial) 4 mg IV Q6H PRN PRN Reason: Nausea And Vomiting Stop: 01/27/23 08:08 Rosuvastatin Calcium (Rosuvastatin Calcium 20 Mg Tab) 40 mg PO DAILY [facility] Stop: 01/27/23 08:59 Last Admin: 12/29/22 08:12 Dose: 40 mg PG Care Time/CCT Total # of Minutes Spent Total Time Spent with Patient: Total time spent is greater than 50% in coordination of care (as documented) at patient's floor/unit and/or counseling patient: Coding Level of Care Code 26635 SUB INP/OBS CARE 3/50MIN Diagnoses Aortic stenosis I35.0 Aortic regurgitation I35.1 Aortic valve replaced Z95.2 Coronary artery disease I25.10 Atrial fibrillation I48.91 History of coronary artery bypass graft x 2 Z95.1 Acute heart failure with preserved ejection fraction (HFpEF) I50.31 Time Spent (min) 65
[2022-12-29] MEDS ORDERED: FUROSEMIDE 40 MG/4 ML VIAL IV ONE (11:45)
--- NOTE | 2022-12-29 19:29 | Hospitalist Progress Note ---
Date of Service December 29, 2022 Assessment & Plan Admission and Anticipated Discharge Date Admission Date: December 28, 2022 Subjective patient transferred to [facility] on December 29, 2022; see d/c summary from same date for further information Results & Data Results & Data Vital Signs (Past 12 Hours) Vital Signs Temp Pulse Pulse Resp BP Pulse Ox O2 Del Method 12/29/22 16:38 36.8 C 97 H 24 142/41 H 93 Nasal Cannula 12/29/22 16:26 36.7 C 92 H 18 118/64 92 12/29/22 11:23 36.7 C 92 H 18 118/64 92 Nasal Cannula 12/29/22 10:08 Nasal Cannula O2 Flow Rate 12/29/22 16:38 2 12/29/22 16:26 12/29/22 11:23 2 12/29/22 10:08 2 Laboratory Results Laboratory Results - last 24 hr 12/28/22 12/29/22 12/29/22 22:27 04:10 04:10 WBC RBC Hgb Hct MCV MCH MCHC RDW Std Deviation RDW Coeff of Tanner Plt Count MPV Immature Gran % (Auto) Neut % (Auto) Lymph % (Auto) Wayne % (Auto) Eos % (Auto) Baso % (Auto) Neut # (Auto) Lymph # (Auto) Wayne # (Auto) Eos # (Auto) Baso # (Auto) Immature Gran # (Auto) Sodium 133 L Potassium 4.2 Chloride 105 Carbon Dioxide 21 Anion Gap 7 BUN 52 H Creatinine 1.42 H Est Cr Clr Drug Dosing 34.4 Est GFR ( Amer) 43.9 Est GFR (Non-Af Amer) 37.9 BUN/Creatinine Ratio 36.6 H Glucose 140 H Calcium 9.6 Magnesium 1.9 Troponin I High Sens 6940.8 H* D 7452.7 H* B-Natriuretic Peptide Triglycerides 67 Cholesterol 154 LDL Cholesterol, Calc 83 VLDL Cholesterol, Calc 13 HDL Cholesterol 58 Cholesterol/HDL Ratio 2.7 12/29/22 12/29/22 04:10 10:39 WBC 8.96 RBC 3.72 L Hgb 11.9 L Hct 34.4 L MCV 92.5 MCH 32.0 MCHC 34.6 RDW Std Deviation 43.9 RDW Coeff of Tanner 13.0 Plt Count 119 L MPV 10.9 Immature Gran % (Auto) 0.3 Neut % (Auto) 75.1 Lymph % (Auto) 16.6 Wayne % (Auto) 7.1 Eos % (Auto) 0.7 Baso % (Auto) 0.2 Neut # (Auto) 6.72 H Lymph # (Auto) 1.49 Wayne # (Auto) 0.64 H Eos # (Auto) 0.06 Baso # (Auto) 0.02 Immature Gran # (Auto) 0.03 Sodium Potassium Chloride Carbon Dioxide Anion Gap BUN Creatinine Est Cr Clr Drug Dosing Est GFR ( Amer) Est GFR (Non-Af Amer) BUN/Creatinine Ratio Glucose Calcium Magnesium Troponin I High Sens B-Natriuretic Peptide 1418 H Triglycerides Cholesterol LDL Cholesterol, Calc VLDL Cholesterol, Calc HDL Cholesterol Cholesterol/HDL Ratio PG Care Time/CCT Total # of Minutes Spent Total Time Spent with Patient: Total time spent is greater than 50% in coordination of care (as documented) at patient's floor/unit and/or counseling patient: Coding Level of Care Code None Diagnoses
--- NOTE | 2022-12-30 05:56 | Electrocardiogram Report ---
Test Reason : Blood Pressure : / mmHG Vent. Rate : 099 BPM Atrial Rate : 000 BPM P-R Int : 000 ms QRS Dur : 084 ms QT Int : 284 ms P-R-T Axes : 000 065 201 degrees QTc Int : 364 ms Atrial fibrillation Abnormal ECG When compared with ECG of 29-AUG-2021 21:46, Atrial fibrillation has replaced Sinus rhythm ST now depressed in Anterior leads ST now depressed in Inferior leads T wave inversion now evident in Anterior leads T wave inversion now evident in Inferior leads Confirmed by Dov Weinberg ([id number]) on 12/30/2022 5:56:44 AM Referred By: REFERRED SELF Confirmed By:Dov eWinberg
--- NOTE | 2022-12-30 05:57 | Electrocardiogram Report ---
Test Reason : Blood Pressure : / mmHG Vent. Rate : 098 BPM Atrial Rate : 000 BPM P-R Int : 000 ms QRS Dur : 092 ms QT Int : 344 ms P-R-T Axes : 000 061 221 degrees QTc Int : 439 ms Atrial fibrillation Abnormal ECG When compared with ECG of 28-Dec-2022 05:57, No significant change Confirmed by Dov Weinberg ([id number]) on 12/30/2022 5:57:30 AM Referred By: REFERRED SELF Confirmed By:Dov Weinberg
--- NOTE | 2022-12-30 06:24 | Electrocardiogram Report ---
Test Reason : Blood Pressure : / mmHG Vent. Rate : 087 BPM Atrial Rate : 000 BPM P-R Int : 000 ms QRS Dur : 096 ms QT Int : 352 ms P-R-T Axes : 000 042 241 degrees QTc Int : 423 ms Atrial fibrillation Abnormal ECG When compared with ECG of 28-DEC-2022 05:58, ST less depressed in Anterolateral leads T wave inversion no longer evident in Anterior leads Confirmed by Dov Weinberg ([id number]) on 12/30/2022 6:23:46 AM Referred By: REFERRED SELF Confirmed By:Dov Weinberg
--- NOTE | 2023-01-04 20:18 | Discharge Summary ---
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 Patient reports that she got up this morning and started getting ready for work when she began to experience some substernal chest discomfort described as pressure associated with palpitations/fluttering. She felt that her heart was beating faster than normal and has never experienced symptoms like this previously. She denies radiation of the pain or associated symptoms of diaphoresis, dyspnea, n/v/d, lightheadedness or dizziness. She denies orthopnea or PND. Due to her symptoms, she sought care in the ER where she was called as a "heart alert" due to concerns for STEMI. Her initial troponin was negative at 13.2; however, her EKG was concerning due to anterolateral ST depressions and minimal ST elevations in V1 and V2. Was also noted to be in new onset atrial fibrillation w/o RVR. Patient was taken to the phlebotomy lab assistant by Dr. Silva, no PCI was required, and hospitalists have been asked to transition her care to medical service following procedure. Principal Diagnosis 1. new onset atrial fibrillation 2. elevated troponin / type 2 WV 3. acute HFpEF / acute right sided CHF (echo with mild RV dysfunction) 4. s/p AVR status with subsequent development of severe and severe AI 5. mod-severe MR 6. pulmonary HTN 7. HTN 8. hyperlipidemia 9. known CAD with h/o 2V-CABG Discharge Exam gen - NAD, pleasant neck - JVD present mouth - MMM heart - irregularly irregular, s1 s2, 2/6 holosystolic murmur RUSB lungs - mild bibasilar rales, mild tachypnea, no wheezes abd - soft NT ND BS+ ext - no edema, pulses 2+ b/l vascular - left wrist - no hematoma or aneurysm Discharge Data Allergies Allergy/AdvReac Type Severity Reaction Status Date / Time clonidine AdvReac Unknown CAN'T Verified 08/29/21 23:28 REMEMBER colestipol AdvReac Unknown CAN'T Verified 08/29/21 23:28 REMEMBER Consultations [facility] Procedures Performed Operation Date: 12/28/22 06:15 Actual Procedures Cineradiography w/Routine Exam - Judd Silva MD Cath, Right and Left with Grafts - Judd Silva MD Ultrasound Vascular Access - Judd Silva MD Summary: 1. Chronic multivessel coronary artery disease - 50% distal LMCA 50% ostial LCx, 90% small OM1 (too small for stenting) 70% mid LAD 90% mid RCA 2. Widely patent MORIN to LAD, SVG to RCA 3. Normal left and right-sided filling pressures. 4. Moderate pulmonary hypertension (precapillary). 5. Preserved cardiac output 6. Prosthetic valve aortic stenosis (pullback peak to peak gradient 33 mmHg) Echocardiogram - Ordered Studies Chest X-Ray 12/28/22 05:53 SINGLE VIEW CHEST CLINICAL HISTORY: Atypical chest pain FINDINGS: An AP, portable, upright chest radiograph is compared to study dated 11/01/2020 and correlated with chest CT dated 08/30/2021. The patient is status post midline sternotomy. The heart is enlarged noting atherosclerotic calcificat ion of the thoracic aorta. There is pulmonary vascular congestion. Scarring/atelectasis is noted at the lung bases. No airspace consolidation or large pleural effusion is identified. No pneumothorax is seen. The skeletal structures are osteopenic. Mild degenerative change is noted in shoulders. The bony thorax is grossly intact. Cholecystectomy clips are seen in the right upper quadrant. IMPRESSION: Cardiomegaly with mild pulmonary vascular congestion. ACT 112: Negative or not required by law. Electronically signed by: Tae Baez M.D. 12/28/2022 8:09 AM Hospital Course (1) Chest pain: The patient presented with chest pain in the setting of rapid a.fib. Code heart alert was called upon ER presentation, and Dr Judd Silva from [facility] Cardiology proceeded with an emergency heart catheterization. During this study the patient's previous grafts from CABG were patent. She otherwise had moderate CAD. No interventions were undertaken during the heart catheterization. The patient's chest pain was felt to be due to the new-onset atrial fibrillation in the setting of her severe AVR stenosis and underlying CAD. She was continued on aspirin and statin therapy along with metoprolol. Peak HS troponin was 7452. (2) Atrial fibrillation: Suspected to be acute, but exact time of onset was truly uncertain. TSH was 6.2 (mildly high). Electrolytes were wnl. She was initiated on Eliquis. Rate control was fair during the hospitalization. She ultimately may need rhythm control but this can be addressed while at [place]. (3) Coronary artery disease: s/p CABG x 2 vessel (MORIN to LAD, SVG to RCA performed in 2011 at [facility] [place]) Continue ASA, statin, metoprolol, lisinopril See #1 above Elevated troponin was not felt to represent acute coronary event; rather, the elevated troponin was 2nd to type 2 WV (4) Hypertension: Stable during the hospitalization (5) Aortic valve replaced: s/p 21mm bioprosthetic aortic valve replacement performed in 2012 at [facility] [place]. Unfortunately she has severe prosthetic valve stenosis and what appears to be new-onset severe aortic insufficiency. Follows with Dr. Sarabjit Neri, [facility] in [place]. During the hospitalization, given the severity of her AVR disease and the concern that it was contributing to her presentation, it was felt that transfer to [place] was necessary for consideration of valve replacement. Thus, patient indeed is transferring to [facility] for management of her acute CHF & severe AVR disease. (6) Acute right-sided congestive heart failure: EF 55-60% on echo but mild RV dysfunction was seen. She was given diuresis for volume overload during the hospitalization. She remained with an O2 requirement at discharge suggesting euvolemia had yet to be achieved. (7) Type 2 myocardial infarction: Peak HS troponin was 7452. Given her left heart cath findings it was felt that her troponin elevation was due to myocardial demand ischemia in the setting of rapid a.fib and acute CHF rather than an ACS. (8) Elevated troponin I level: as above (9) Aortic stenosis: AVR - severe stenosis see above (10) Aortic regurgitation: AVR - severe AI see above Plan I would like to thank Dr Jeni Mayer of the cardiology team at [facility] for accepting Mrs Page in transfer for ongoing care. Total Time Total Time Spent Total Time Spent (In Minutes): 45 Discharge Plan Discharge Items Patient Disposition: Transfer Acute Care Hospital Reason For Visit: CHEST PAIN Discharge Diagnosis: 1. new onset a.fib 2. acute HFpEF 3. type 2 WV 4. h/o aortic valve replacement 5. severe /severe AI of AVR 6. 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 Addtl [employer] Worker Provider Instructions: ACTIVITY RECOMMENDATIONS following your heart catheterization: It is common to feel weak and fatigue for a few days. * Do not drive or operate any motorized equipment for the next three days. * Limit stair usage (2 or 3 trips a day only) for the next three days. * Do not lift anything heavier than 10 pounds for the next three days. * You may shower the day after your procedure, but do not immerse the area for three days. Cleanse the site gently with soap and water. SPECIAL CARE INSTRUCTIONS: * You may replace the pressure dressing or band-aid the morning after the procedure. * After your procedure, it is normal to have a small bruise or small lump at the site. Examine your site daily for any change in the bruise or lump, redness, swelling, drainage or numbness. Notify your doctor if any change. BLEEDING: * If there is a small amount of bleeding at the site, lie down and apply firm pressure with a clean cloth for ten minutes. When the bleeding stops, lie quietly keeping the procedure limb straight for six hours. Notify your doctor as soon as possible. * If the bleeding does not stop after ten minutes or if there is a large amount of bleeding or spurting, call 911 immediately. Continue to lie down and hold firm pressure until help arrives. SKIN IRRITATION: * You may experience some redness and/or swelling in the area where radiation was administered. If any skin irritation occurs, please contact your family physician. FOLLOW UP VISIT: Keep any scheduled doctor appointments. Pending Studies at Discharge: No Stand-Alone Forms: My [employer] Skilled Items Patient informed of condition?: Yes DNR: No Discharge Level of Care: Other Communicable Disease: No Discharge Prognosis: Other Lines: Peripheral IV Urinary Catheter: No Medications and DC Order Prescriptions: No Action amlodipine 5 mg tablet 5 mg PO DAILY metoprolol tartrate 50 mg tablet 50 mg PO BID ezetimibe 10 mg tablet 10 mg PO DAILY lisinopril 30 mg tablet 30 mg PO DAILY rosuvastatin 40 mg tablet 40 mg PO DAILY aspirin [Phill Low Dose Aspirin] 81 mg Tablet,Delayed Release (Dr/Ec) 81 mg PO DAILY coenzyme Q10 [CoQ-10] 100 mg Capsule 100 mg PO DAILY cholecalciferol (vitamin D3) [Vitamin D3] 50 mcg (2,000 unit) Capsule 100 mcg PO DAILY omega 0-lnd-emq-fish oil [Fish Oil] 1,000 mg (120 mg-180 mg) Capsule 1 cap PO BID Discharge Orders: Discharge Order (Routine); Ordered 12/29/22 Ordered By: Roland Swain Admission Data Admit Date/Time: 12/28/22 08:13 Attending Provider: Valentin Silva Admit Provider: Roland Swain Primary Care Provider: Thania Douglas Other Providers: Rip Barbour ; Sarabjit Neri Other Interventions: Discharge Summary Assessment (RN) Last Done: 12/29/22 19:58 Coding Level of Care Code 54962 INP/OBS DISCH >30 MIN Diagnoses Chest pain R07.9 Atrial fibrillation I48.91 Coronary artery disease I25.10 Hypertension I10 Aortic valve replaced Z95.2 Acute right-sided congestive heart failure I50.811 Type 2 myocardial infarction I21.A1 Elevated troponin I level R77.8 Aortic stenosis I35.0 Aortic regurgitation I35.1
== END 2022-12-29 20:02 | disposition short-term general hospital (02) | DRG 282 ==
LOC: ED 05:45 → CC 06:45 → 1E 06:49 → ED 06:49 → 1E 08:13